=== PATIENT | male | born 1940 | race Caucasian/White ===

== ENCOUNTER 2022-04-23 09:33 | Observation (INO) ==
[2022-04-23] MEDS ORDERED: SODIUM CHLORIDE 0.9% 1000ML 1,000 ML IV SCH ×3 (09:45→19:24)
--- NOTE | 2022-04-23 10:16 | Emergency Department Note ---
History of Present Illness General Chief complaint: Rectal Bleed Time Seen by Provider: 04/23/22 09:45 History of Present Illness Provider Complaint: + diarrhea Onset (ago): hour(s) 1 Description of Diarrhea: + bloody (bright red) Associated Abdominal Pain: Yes Location of pain: + RLQ Severity: mild Quality: + aching Pain Consistency: + intermittent Relieved By: + none Exacerbated By: + bowel movement Context: no foreign travel, no possible food poisoning, no sick contacts, no alcohol abuse, no trauma, no anticoagulant use, no NSAID use, no smoking, no CO exposure or no marijuana use Associated symptoms: no myalgias, no chest pain, no cough, no diaphoresis, no fever/chills, no headaches, no loss of appetite, no malaise, no nausea/vomiting, no dysuria, no shortness of breath, no weakness, no fecal incontinence, no altered mental status or no change in vision Home Medications Medication Instructions Recorded Confirmed Type Lactobacillus acidophilus 1.5 mg 1,000 mmu cells PO QAM 12/06/21 04/13/22 History (250 million cell) capsule (Probiotic Acidophilus) amlodipine 2.5 mg tablet 2.5 mg PO QAM 12/06/21 04/13/22 History doxycycline monohydrate 100 mg 100 mg PO QAM 12/06/21 04/13/22 History tablet fluticasone propionate 50 2 spray intranasal QA PRN 12/06/21 04/13/22 History mcg/actuation nasal Congestion spray,suspension glucosamine 750 [id number] 1 tab PO QAM 12/06/21 04/13/22 History no1 644 mg-C 30 mg-kelly 1 mg tablet (Osteo Bi-Flex Triple Strength) pantoprazole 40 mg tablet,delayed 40 mg PO QAM 12/06/21 04/13/22 History release aspirin 325 mg capsule 325 mg PO BID 04/06/22 04/13/22 History Allergies Allergy/AdvReac Type Severity Reaction Status Date / Time No Known Allergies Allergy Unknown Verified 04/13/22 09:21 Past Med/Surg History Medical History Cardiac murmur GERD (gastroesophageal reflux disease) Hypertension Mitral valve regurgitation Follows Dr. Earl Surgical History History of appendectomy History of colonoscopy Hx of bilateral cataract extraction Hx of left inguinal hernia repair Family History Brother Colorectal cancer Sister Colorectal cancer Social History Smoking Status: Never smoker Second Hand Exposure: No; Hx Alcohol Use: No Hx Substance Use: No Preferred Language: [place] Communication Ability: Effective Embedded Systems Developer Required: No Beliefs That Will Affect Care: None Current Living Situation: Spouse Feels Safe at Home: Yes Assistive Devices: Denture - Upper, Denture - Lower and Glasses Review of Systems A total of 10 systems reviewed and were otherwise negative Physical Exam Vital Signs: Vital Signs - 24 hr 04/23/22 09:37 04/23/22 09:45 04/23/22 10:41 Temperature 36.6 C 36.6 C Temperature Source Oral Oral Pulse Rate 68 70 Pulse Rate [Right Finger] 67 Pulse Rhythm Regular Regular Pulse Rhythm [Righ t Finger] Regular Pulse Strength [Ri ght Finger] Normal Respiratory Rate 19 19 17 Respiratory Effort / Characteristics Non-Labored Sponta neous Non-Labored Sponta neous Respiratory Depth Normal Normal Respiratory Patter n Regular Regular Blood Pressure 181/94 H Blood Pressure [Ri ght Arm] 181/94 H Blood Pressure [place] n 123 Blood Pressure [place] n [Right Arm] 123 Blood Pressure Pos ition Lying Blood Pressure Pos ition [Right Arm] Lying Pulse Oximetry 98 95 97 Oxygen Delivery Me thod Room Air Room Air Room Air Sepsis Recent Feve r Within 48 Hours No Sepsis New/Unexpla ined Change in Men cassie Status No Sepsis Action Take n by Nursing No Action Required 04/23/22 11:47 Temperature Temperature Source Pulse Rate Pulse Rate [Right Finger] 85 Pulse Rhythm Pulse Rhythm [Righ t Finger] Pulse Strength [Ri ght Finger] Respiratory Rate 16 Respiratory Effort / Characteristics Respiratory Depth Respiratory Patter n Blood Pressure Blood Pressure [Ri ght Arm] 182/85 H Blood Pressure [place] n Blood Pressure [place] [Right Arm] 117 Blood Pressure Pos ition Blood Pressure Pos ition [Right Arm] Pulse Oximetry 98 Oxygen Delivery Me thod Room Air Sepsis Recent Feve r Within 48 Hours Sepsis New/Unexpla ined Change in Men cassie Status Sepsis Action Take n by Nursing Physical Exam: Physical Exam GENERAL: He is oriented to person, place, and time. He appears well-developed and well-nourished. He does not appear distressed. HENT: Exam performed. - Head: Normocephalic and atraumatic. - Right Ear: External ear normal. No mastoid tenderness. - Left Ear: External ear normal. No mastoid tenderness. - Mouth/Throat: The oropharynx is clear and moist. No trismus in the jaw. No dental abscesses or uvula swelling. No oropharyngeal exudate or tonsillar abscesses. EYES: Conjunctivae and EOM are normal. Pupils are equal, round, and reactive to light. Right eye exhibits no discharge. Left eye exhibits no discharge. No scleral icterus. NECK: Normal range of motion. Neck supple. No JVD present. No spinous process tenderness present. No carotid bruit present. No rigidity. No tracheal deviation and normal range of motion present. No Brudzinski's sign and no Kernig's sign noted. CV: Normal rate, regular rhythm, normal heart sounds and intact distal pulses. There is no peripheral edema. Palpable radial pulses bue. PULM/CHEST: Effort normal and breath sounds normal. No respiratory distress. No stridor. He has no wheezes. He has no rales. - Chest Wall: He exhibits no tenderness. ABD: The abdomen is soft. Bowel sounds are normal. He has no distension. No mass is present. There is tenderness to palpation of the right lower quadrant. There is no rebound, no guarding, no Arora's sign. Rovsig negative. Rectal: Bright red blood per rectum. MUSC/SKEL: Normal range of motion. There is no peripheral edema, tenderness or deformity. LYMPH: No cervical adenopathy. NEURO: He is alert and oriented to person, place, and time. He has normal strength. No cranial nerve deficit or sensory deficit. Coordination and gait normal. GCS eye subscore is 4. GCS verbal subscore is 5. GCS motor subscore is 6. Cerebellar tests wnl. SKIN: Skin is warm and dry. He is not diaphoretic. PSYCH: He has a normal mood and affect. Behavior is normal. Judgment and thought content normal. Course Course 0945: The patient was evaluated in room C4. A complete history and physical exam was performed Cardiac monitoring: An order was placed for continuous cardiac monitoring. The monitor shows a rate of 70 with sinus rhythm 1246: Vital signs stable. Labs within normal limits. CT does show possible GI bleed. Discussed with hospitalist team Chari paul who wanted GI consulted. Dr. Eastman made aware and states it is okay for the patient to be admitted to this facility. [facility] hospitalist team made aware. Administered Medications Sodium Chloride (Nss 1000ml) 1,000 mls @ 125 mls/hr IV .Q8H GISELA Stop: 05/23/22 09:44 Last Admin: 04/23/22 10:13 Dose: 125 mls/hr Documented By: JULY Discontinued Medications Ioversol (Optiray 320 100ml) 94 ml IV ONCE ONE Stop: 04/23/22 11:34 Last Admin: 04/23/22 11:34 Dose: 94 ml Documented By: LAYO Medical Decision Making Laboratory Data Result diagrams: 04/23/22 10:06 04/23/22 10:06 Lab Results 04/23/22 04/23/22 04/23/22 Range/Units 10:06 10:06 10:06 WBC 7.12 (4.8-10.8) K/ul RBC 4.27 L (4.63-6.08) M/uL Hgb 13.2 L (14.0-18.0) g/dl Hct 39.8 L (40.1-51.0) % MCV 93.2 (80.0-100.0) fL MCH 30.9 (25.0-34.0) pg MCHC 33.2 (32.0-36.0) g/dL RDW Std Deviation 48.7 H (36.4-46.3) fL RDW Coeff of Anamika 14.2 (11.5-14.5) % Plt Count 198 (130-400) K/uL MPV 11.2 (9.4-12.4) fL Immature Gran % (Auto) 0.3 % Neut % (Auto) 74.0 % Lymph % (Auto) 14.9 % Steele % (Auto) 8.3 % Eos % (Auto) 1.5 % Baso % (Auto) 1.0 % Neut # (Auto) 5.27 (1.4-6.5) K/uL Lymph # (Auto) 1.06 L (1.2-3.4) K/uL Steele # (Auto) 0.59 (0.24-0.82) K/uL Eos # (Auto) 0.11 (0-0.50) K/uL Baso # (Auto) 0.07 (0-0.2) K/uL Immature Gran # (Auto) 0.02 (0.00-0.02) K/uL PT 10.6 (9.0-12.0) Seconds INR 1.0 (0.9-1.1) APTT 27.3 (21.0-31.0) Seconds PTT Ratio 1.0 Sodium 139 (136-145) mmol/L Potassium 4.3 (3.5-5.1) mmol/L Chloride 104 (98-107) mmol/L Carbon Dioxide 25 (21-32) mmol/L Anion Gap 10 (3-11) BUN 17 (6-23) mg/dl Creatinine 1.16 (0.6-1.4) mg/dl Est Cr Clr Drug Dosing 47.8 ml/min Est GFR ( Amer) 68.6 ml/min Est GFR (Non-Af Amer) 59.1 ml/min BUN/Creatinine Ratio 14.7 (10-20) Glucose 102 H (70-99(Fasting)) mg/dl Calcium 9.4 (8.5-10.1) mg/dl Magnesium 2.0 (1.7-2.4) mg/dl Total Bilirubin 0.4 (0.2-1.0) mg/dl Direct Bilirubin 0.1 (0-0.2) mg/dl AST 23 (13-39) U/L ALT 18 (7-52) U/L Alkaline Phosphatase 79 (34-104) U/L Total Protein 7.9 (6.0-8.3) gm/dl Albumin 4.4 (3.4-5.0) gm/dl Lipase 46 (11-82) U/L Imaging Data Radiologist's Impression: Abdomen/Pelvis CT 04/23/22 10:02 CT OF THE ABDOMEN AND PELVIS WITH CONTRAST CLINICAL HISTORY: Right lower quadrant pain. Bloody diarrhea. COMPARISON STUDY: None. TECHNIQUE: Following IV administration of 94 mL of Optiray, axial images of the abdomen and pelvis were obtained from the lung bases to the proximal femurs. Images were reviewed in the axial, sagittal, and coronal planes. IV contrast was administered without complication. Automated exposure control was utilized for the study. A dose lowering technique was utilized adhering to the principles of ALARA. CT DOSE: 267.60 mGy.cm FINDINGS: Lung bases are unremarkable. No pneumatosis, free air or portal venous gas is present. Liver, spleen, adrenal glands, kidneys and pancreas are unremarkable. No biliary or pancreatic ductal dilatation. No hydronephrosis. Suspected excreted contrast within the collecting systems. Caliber and wall thickness of small and large bowel are normal. The appendix is not visualized. Note is made of linear hyperdense intraluminal material within the cecum shown best on axial image 299 of 436. Colonic diverticulosis is noted without evidence for acute diverticulitis. Left inguinal hernia repair is present. No acute fracture or suspicious lesion within visualized skeletal structures. Normal caliber abdominal aorta with extensive atherosclerotic plaque. No lymphadenopathy. No ascites. No fluid collection to suggest an abscess. IMPRESSION: 1. Linear hypodense intraluminal material within the cecum. Although possibly artifactual, this finding favors active GI bleed with intraluminal contrast extravasation. GI consultation is recommended. 2. Colonic diverticulosis. No evidence for acute diverticulitis. No bowel obstruction. ACT 112: Negative or not required by law. Electronically signed by: Santiago Cottrell M.D. 04/23/2022 11:49 AM ECG Data Indication: abdominal pain Rate (beats per minute): 77 Rhythm: normal sinus Findings: + PVC; no ST depression, no ST elevation or no prolonged QT MDM Narrative 0945: The patient was evaluated in room C4. A complete history and physical exam was performed Cardiac monitoring: An order was placed for continuous cardiac monitoring. The monitor shows a rate of 70 with sinus rhythm 1246: Vital signs stable. Labs within normal limits. CT does show possible GI bleed. Discussed with hospitalist team Chari paul who wanted GI consulted. Dr. Eastman made aware and states it is okay for the patient to be admitted to this facility. [facility] hospitalist team made aware. Impression & Plan Lower gastrointestinal hemorrhage Discharge Plan Visit Data Chief Complaint: Rectal Bleed ED Provider: James Yousif Discharge Problem: Lower gastrointestinal hemorrhage Patient Disposition: Being Evaluated by Hospitalist Forms Stand Alone Forms: [facility] [employer] [place] Prescriptions Prescriptions: No Action aspirin 325 mg Capsule 325 mg PO BID Osteo Bi-Flex Triple Strength 750 mg-644 mg- 30 mg-1 mg Tablet 1 tab PO QAM amlodipine 2.5 mg Tablet 2.5 mg PO QAM doxycycline monohydrate 100 mg Tablet 100 mg PO QAM pantoprazole 40 mg Tablet,Delayed Release (Dr/Ec) 40 mg PO QAM fluticasone propionate 50 mcg/actuation [place],Suspension 2 spray INTRANASAL QAM PRN (Reason: Congestion) Probiotic Acidophilus 1.5 mg (250 million cell) Capsule 1,000 mmu cells PO QAM Referrals Referrals: Ninfa Arriaga, [Primary Care Provider] -
[2022-04-23 10:23] LABS: Basophils # (auto) 0.07 K/uL (0-0.2); Eosinophils # (auto) 0.11 K/uL (0-0.50); Eosinophils % (auto) 1.5 %; Hematocrit (blood only) 39.8 % (40.1-51.0); Hemoglobin 13.2 g/dl (14.0-18.0); Immature Granulocytes # (auto) 0.02 K/uL (0.00-0.02); Immature Granulocytes % (auto) 0.3 %; Lymphocytes # (auto) 1.06 K/uL (1.2-3.4); Lymphocytes % (auto) 14.9 %; Mean Corpuscular Hemoglobin 30.9 pg (25.0-34.0); Mean Corpuscular Hgb Conc 33.2 g/dL (32.0-36.0); Mean Corpuscular Volume 93.2 fL (80.0-100.0); Mean Platelet Volume 11.2 fL (9.4-12.4); Monocytes # (auto) 0.59 K/uL (0.24-0.82); Monocytes % (auto) 8.3 %; Neutrophils # (auto) 5.27 K/uL (1.4-6.5); Platelet Count 198 K/uL (130-400); RDW Coefficient of Variation 14.2 % (11.5-14.5); RDW Standard Deviation 48.7 fL (36.4-46.3); Red Blood Count 4.27 M/uL (4.63-6.08); White Blood Count 7.12 K/ul (4.8-10.8)
[2022-04-23 10:36] LABS: Partial Thromboplastin Time 27.3 Seconds (21.0-31.0); Prothrombin Time 10.6 Seconds (9.0-12.0)
[2022-04-23 11:00] LABS: Albumin Level 4.4 gm/dl (3.4-5.0); BUN Creatinine Ratio 14.7 (10-20); Bilirubin Direct 0.1 mg/dl (0-0.2); Bilirubin,Total 0.4 mg/dl (0.2-1.0); Calcium 9.4 mg/dl (8.5-10.1); Creatinine Clr Calc Pharmacy 47.8 ml/min; Est GFR (African American) 68.6 ml/min; Est GFR (Non-African American) 59.1 ml/min; Potassium 4.3 mmol/L (3.5-5.1); Total Protein 7.9 gm/dl (6.0-8.3)
[2022-04-23] MEDS ORDERED: OPTIRAY 320 100ml IV ONE (11:33)
--- NOTE | 2022-04-23 11:51 | CT Scan Report ---
CT OF THE ABDOMEN AND PELVIS WITH CONTRAST CLINICAL HISTORY: Right lower quadrant pain. Bloody diarrhea. COMPARISON STUDY: None. TECHNIQUE: Following IV administration of 94 mL of Optiray, axial images of the abdomen and pelvis we re obtained from the lung bases to the proximal femurs. Images were reviewed in the axial, sagittal, and coronal planes. IV contrast was administered without complication. Automated exposure control wa s utilized for the study. A dose lowering technique was utilized adhering to the principles of ALARA . CT DOSE: 267.60 mGy.cm FINDINGS: Lung bases are unremarkable. No pneumatosis, free air or portal venous gas is present. Live r, spleen, adrenal glands, kidneys and pancreas are unremarkable. No biliary or pancreatic ductal dil atation. No hydronephrosis. Suspected excreted contrast within the collecting systems. Caliber and wa ll thickness of small and large bowel are normal. The appendix is not visualized. Note is made of annette ear hyperdense intraluminal material within the cecum shown best on axial image 299 of 436. Colonic d iverticulosis is noted without evidence for acute diverticulitis. Left inguinal hernia repair is pres ent. No acute fracture or suspicious lesion within visualized skeletal structures. Normal caliber abd ominal aorta with extensive atherosclerotic plaque. No lymphadenopathy. No ascites. No fluid collecti on to suggest an abscess. IMPRESSION: 1. Linear hypodense intraluminal material within the cecum. Although possibly artifactual, this findi ng favors active GI bleed with intraluminal contrast extravasation. GI consultation is recommended. 2. Colonic diverticulosis. No evidence for acute diverticulitis. No bowel obstruction. ACT 112: Negative or not required by law. Electronically signed by: Santiago Cottrell M.D. 04/23/2022 11:49 AM
--- NOTE | 2022-04-23 13:23 | Gastrointestinal Consultation ---
Date of Consultation April 23, 2022 Assessment & Plan (1) Lower gastrointestinal hemorrhage: (2) AVM (arteriovenous malformation) of colon: Plan active GI bleeding in setting of colonic AVMs and high dose aspirin use recs: --clear liquid diet today, golytely 4L prep tonight at 6 pm --colonoscopy tomorrow morning with [facility] to further evaluate and treat --would advise using no more than aspirin 325 mg daily going forward in the future supportive care, IVFs Thank you for allowing me to participate in the care of this patient. History of Present Illness History of Present Illness 82 yo male here with hx colonic AVMs here with diarrhea and hematochezia. Hgb noted to be 13.2 on admission, he recently underwent colonoscopy with Dr. Park who found diverticulosis and treated multiple right sided colonic AVMs with APC. CT A/P today shows intraluminal extravasation consistent with gi bleeding in the cecum. This hematochezia with clots started early this morning, and the diarrhea last night. He did not have these issues after his colonoscopy. He was having RLQ abd pains/pressure that has been ongoing and chronic however. He notes he takes Aspirin 325 mg BID and has been doing this for 2 months now. CBC and CMP reviewed. Allergies Allergy/AdvReac Type Severity Reaction Status Date / Time No Known Allergies Allergy Unknown Verified 04/13/22 09:21 Home Medications Medication Instructions Recorded Confirmed Type Lactobacillus acidophilus 1.5 mg 1,000 mmu cells PO QAM 12/06/21 04/13/22 History (250 million cell) capsule (Probiotic Acidophilus) amlodipine 2.5 mg tablet 2.5 mg PO QAM 12/06/21 04/13/22 History doxycycline monohydrate 100 mg 100 mg PO QAM 12/06/21 04/13/22 History tablet fluticasone propionate 50 2 spray intranasal QAM PRN 12/06/21 04/13/22 History mcg/actuation nasal Congestion spray,suspension glucosamine 750 [id number] 1 tab PO QAM 12/06/21 04/13/22 History no1 644 mg-C 30 mg-kelly 1 mg tablet (Osteo Bi-Flex Triple Strength) pantoprazole 40 mg tablet,delayed 40 mg PO QAM 12/06/21 04/13/22 History release aspirin 325 mg capsule 325 mg PO BID 04/06/22 04/13/22 History Patient History Medical History Cardiac murmur GERD (gastroesophageal reflux disease) Hypertension Mitral valve regurgitation Follows Dr. Earl Surgical History History of appendectomy History of colonoscopy Hx of bilateral cataract extraction Hx of left inguinal hernia repair Family History Brother Colorectal cancer Sister Colorectal cancer Social History Smoking Status: Never smoker Second Hand Exposure: No; Hx Alcohol Use: No Hx Substance Use: No Preferred Language: [place] Communication Ability: Effective Culture Manager Required: No Beliefs That Will Affect Care: None Current Living Situation: Spouse Feels Safe at Home: Yes Assistive Devices: Denture - Upper, Denture - Lower and Glasses Review of Systems Constitutional: no fever, no chills and no weight loss Eyes: as per Subjective / HPI Ear, Nose, Mouth, Throat: as per Subjective / HPI Respiratory: no dyspnea and no dyspnea on exertion Cardiovascular: no chest pain and no palpitations Gastrointestinal: as per Subjective / HPI Musculoskeletal: no joint pain and no swelling Integumentary: no rash and no lesions Neurologic: no numbness and no paresthesia Psychiatric: no depression and no anxiety Endocrine: no fatigue Hematologic / Lymphatic: no easy bleeding and no easy bruising Physical Exam Constitutional: WD/WN, vitals as above Eyes: EOM intact bilaterally Neck: normal visual inspection Respiratory: normal respiratory effort, lungs clear to auscultation Cardiovascular: RRR, no murmur, no edema Gastrointestinal (Abdomen): Inspection/Auscultation: abdomen normal to inspection; abdomen not distended Percussion/Palpation: + abdomen tender (mild RLQ) and abdomen soft; no hepatosplenomegaly Musculoskeletal: Extremities: no cyanosis Gait: normal gait Skin: no rashes, warm and dry Neurologic: moves all extremities Psychiatric: A+Ox3, euthymic affect Results & Data ([facility]) Vital Signs (Past 12 Hours) Vital Signs Temp Pulse Pulse Resp BP BP Pulse Ox 04/23/22 11:47 85 16 182/85 H 98 04/23/22 10:41 70 17 97 04/23/22 09:45 36.6 C 67 19 181/94 H 95 04/23/22 09:37 36.6 C 68 19 181/94 H 98 O2 Del Method 04/23/22 11:47 Room Air 04/23/22 10:41 Room Air 04/23/22 09:45 Room Air 04/23/22 09:37 Room Air PG Care Time/CCT Total # of Minutes Spent Total Time Spent with Patient: Total time spent is greater than 50% in coordination of care (as documented) at patient's floor/unit and/or counseling patient: Coding Level of Care Code 81705 Initial Inpt Care Lvl 3 Diagnoses Lower gastrointestinal hemorrhage K92.2 AVM (arteriovenous malformation) of colon K55.20
[2022-04-23 14:33] LABS: Adenovirus F 40/41 PCR Not Detected (NotDetected); Astrovirus PCR Not Detected (NotDetected); Campylobacter PCR Not Detected (NotDetected); Clostridium diff Toxin A/B PCR Not Detected (NotDetected); Cryptosporidium PCR Not Detected (NotDetected); Cyclospora cayetanensis PCR Not Detected (NotDetected); Entamoeba histolytica PCR Not Detected (NotDetected); Enteroaggregative E.coli(EAEC) Not Detected (NotDetected); Enteropathogenic E.coli (EPEC) Not Detected (NotDetected); Enterotoxigenic E.coli (ETEC) Not Detected (NotDetected); Giardia lamblia PCR Not Detected (NotDetected); Norovirus GI/GII PCR Not Detected (NotDetected); Plesiomonas shigelloides PCR Not Detected (NotDetected); Rotavirus A PCR Not Detected (NotDetected); Salmonella PCR Not Detected (NotDetected); Sapovirus PCR Not Detected (NotDetected); Shiga-like Toxin E.coli (STEC) Not Detected (NotDetected); Shigella/Enteroinvasive E.coli Not Detected (NotDetected); Vibrio cholerae PCR Not Detected (NotDetected); Vibrio species PCR Not Detected (NotDetected); Yersinia enterocolitica PCR Not Detected (NotDetected)
[2022-04-23] MEDS ORDERED: ACETAMINOPHEN 325 MG TAB PO PRN (15:22)
--- NOTE | 2022-04-23 15:46 | History & Physical Report ---
Date of Service April 23, 2022 Assessment & Plan (1) Lower gastrointestinal hemorrhage: (2) AVM (arteriovenous malformation) of colon: Plan: Admit to [facility] with telemetry Patient presenting from home with reports of bright red bleeding per rectum S/p recent colonoscopy on 04/13/2022 -- - Three recently bleeding colonic angioectasias. Treated with argon plasma coagulation (APC). Mild diverticulosis in the sigmoid colon and in descending colon. Internal hemorrhoids. Currently hemodynamically stable, Hgb stable at 13.2 GI consulted --planning on colonoscopy tomorrow Serial H&H, transfuse as needed Clear liquids, n.p.o. after midnight (3) Hypertension: Plan: BP controlled, continue amlodipine Noted history of abnormal stress test 12/2021 --patient was offered cardiac cath for additional work-up however patient has declined (4) HLD (hyperlipidemia): Plan: Statin intolerant (5) DVT prophylaxis: Plan: SCDs due to GI bleeding Admission and Anticipated Discharge Date Admission Date: April 23, 2022 History of Present Illness Chief Complaint: Bright red bleeding per rectum Primary Care Provider: Ninfa Arriaga DO 82-year-old male with PMH HLD, moderate to severe mitral regurgitation, HTN, GERD, Mnire's disease, rosacea, and other problems listed below who presents the ED for evaluation of bright red bleeding per rectum. Patient underwent colonoscopy on 04/13/2022 after outpatient fecal occult blood was positive. C olonoscopy showed 3 bleeding colonic angioectasias that were treated with APC. There was also mild diverticulosis and internal hemorrhoids noted. Patient reports 1 episode of diarrhea yesterday. This morning, he had another episode of diarrhea with bright red blood. Patient reports about 6 episodes of bright red bleeding per rectum this morning. Has right lower quadrant abdominal discomfort that is a chronic issue for him. Denies nausea or vomiting. Had an episode of lightheadedness earlier in the week that he attributes to his Mnire's disease. Denies chest pain shortness of breath. No syncopal events. Denies fevers and chills. No urinary symptoms. In the ED, patient is hemodynamically stable and labs show Hgb 13.2. Patient was given IVF. Allergies Allergy/AdvReac Type Severity Reaction Status Date / Time No Known Allergies Allergy Unknown Verified 04/13/22 09:21 Home Medications Medication Instructions Recorded Confirmed Type Lactobacillus acidophilus 1.5 mg 1,000 mmu cells PO QAM 12/06/21 04/23/22 History (250 million cell) capsule (Probiotic Acidophilus) amlodipine 2.5 mg tablet 2.5 mg PO QAM 12/06/21 04/23/22 History doxycycline monohydrate 100 mg 100 mg PO QAM 12/06/21 04/23/22 History tablet glucosamine 750 vi-ugsaywczxid-hkg 1 tab PO QAM 12/06/21 04/23/22 History no1 644 mg-C 30 mg-kelly 1 mg tablet (Osteo Bi-Flex Triple Strength) aspirin 325 mg capsule 325 mg PO BID 04/06/22 04/23/22 History ferrous sulfate 325 mg (65 mg 325 mg PO DAILY 04/23/22 04/23/22 History iron) tablet linaclotide 72 mcg capsule 72 mcg PO DAILY 04/23/22 04/23/22 History (Linzess) Past Med/Surg History Medical History Abnormal stress test Patient declined cardiac cath Cardiac murmur GERD (gastroesophageal reflux disease) HLD (hyperlipidemia) Hypertension Mitral valve regurgitation Follows Dr. Earl Surgical History History of appendectomy History of colonoscopy Hx of bilateral cataract extraction Hx of left inguinal hernia repair Family History Brother Colorectal cancer Sister Colorectal cancer Social History Smoking Status: Former smoker Second Hand Exposure: No; Hx Alcohol Use: No Hx Substance Use: No Preferred Language: Sinhala Communication Ability: Effective Jewelry Facer Required: No Beliefs That Will Affect Care: None Current Living Situation: Spouse Feels Safe at Home: Yes Assistive Devices: Denture - Upper, Denture - Lower and Glasses Review of Systems Review of Systems: ROS per HPI, all other systems reviewed and negative Physical Exam Constitutional: WD/WN, vitals as above Eyes: PERRL, conjunctivae normal, anicteric sclerae ENMT: external ear and nose normal, oropharynx normal Respiratory: normal respiratory effort, lungs clear to auscultation Cardiovascular: Rate/Rhythm: regular rate and regular rhythm Heart Sounds: + murmur (Grade 4/6, systolic, best heard over fifth ICS) Vessels: normal peripheral pulses Extremities: no edema Gastrointestinal (Abdomen): normal bowel sounds, soft, nontender, no hepatosplenomegaly Musculoskeletal: no cyanosis or clubbing, extremities motor strength 5/5 Skin: no rashes, warm and dry Neurologic: PERRL, EOMI, accommodation nl, no face palsy, no dysarthria Psychiatric: A+Ox3, euthymic affect Results & Data Results & Data ([facility]) Vital Signs (Past 12 Hours) Vital Signs Temp Pulse Pulse Resp BP BP Pulse Ox 04/23/22 14:52 71 18 139/58 L 100 04/23/22 13:25 85 18 137/74 97 04/23/22 11:47 85 16 182/85 H 98 04/23/22 10:41 70 17 97 04/23/22 09:45 36.6 C 67 19 181/94 H 95 04/23/22 09:37 36.6 C 68 19 181/94 H 98 O2 Del Method 04/23/22 14:52 Room Air 04/23/22 13:25 Room Air 04/23/22 11:47 Room Air 04/23/22 10:41 Room Air 04/23/22 09:45 Room Air 04/23/22 09:37 Room Air Laboratory Results Short CBC 04/23/22 Range/Units 10:06 WBC 7.12 (4.8-10.8) K/ul Hgb 13.2 L (14.0-18.0) g/dl Hct 39.8 L (40.1-51.0) % Plt Count 198 (130-400) K/uL BMP 04/23/22 10:06 Sodium 139 Potassium 4.3 Chloride 104 Carbon Dioxide 25 BUN 17 Creatinine 1.16 Glucose 102 H Calcium 9.4 Liver Function 04/23/22 Range/Units 10:06 Total Bilirubin 0.4 (0.2-1.0) mg/dl Direct Bilirubin 0.1 (0-0.2) mg/dl AST 23 (13-39) U/L ALT 18 (7-52) U/L Alkaline Phosphatase 79 (34-104) U/L Albumin 4.4 (3.4-5.0) gm/dl Diagnostic Findings Abdomen/Pelvis CT 04/23/22 10:02 CT OF THE ABDOMEN AND PELVIS WITH CONTRAST CLINICAL HISTORY: Right lower quadrant pain. Bloody diarrhea. COMPARISON STUDY: None. TECHNIQUE: Following IV administration of 94 mL of Optiray, axial images of the abdomen and pelvis were obtained from the lung bases to the proximal femurs. Images were reviewed in the axial, sagittal, and coronal planes. IV contrast was administered without complication. Automated exposure control was utilized for the study. A dose lowering technique was utilized adhering to the principles of ALARA. CT DOSE: 267.60 mGy.cm FINDINGS: Lung bases are unremarkable. No pneumatosis, free air or portal venous gas is present. Liver, spleen, adrenal glands, kidneys and pancreas are unremarkable. No biliary or pancreatic ductal dilatation. No hydronephrosis. Suspected excreted contrast within the collecting systems. Caliber and wall thickness of small and large bowel are normal. The appendix is not visualized. Note is made of linear hyperdense intraluminal material within the cecum shown best on axial image 299 of 436. Colonic diverticulosis is noted without evidence for acute diverticulitis. Left inguinal hernia repair is present. No acute fracture or suspicious lesion within visualized skeletal structures. Normal caliber abdominal aorta with extensive atherosclerotic plaque. No lymphadenopathy. No ascites. No fluid collection to suggest an abscess. IMPRESSION: 1. Linear hypodense intraluminal material within the cecum. Although possibly artifactual, this finding favors active GI bleed with intraluminal contrast extravasation. GI consultation is recommended. 2. Colonic diverticulosis. No evidence for acute diverticulitis. No bowel obstruction. ACT 112: Negative or not required by law. Electronically signed by: Santiago Cottrell M.D. 04/23/2022 11:49 AM Code Status & VTE Plan Code Status Patient is a DNR as per my discussion with him. VTE Prophylaxis Plan VTE Prophylaxis will be ordered: Yes Supervising Physician Co-Signing Physician Notes Patient was seen and examined independently at bedside. Chart reviewed. Case discussed with Chari WILLAMS and agree with the documentation above. In summary, this is a 82 year old male who presented to the ED with diarrhea and hematochezia. He had recent colonoscopy 04/13 and had APCs done for multiple right sided clolonic AVMs. He currently feels fine during my encounter. Vitals stable. Labs including Hb stable, stool studies negative. AAO, chest clear, heart sounds normal, abd benign, no LE edema, non focal exam. Seen by GI. Plan for colonoscopy tomorrow per GI. Clear liquid diet today and bowel prep tonight. Trend H&H. Rest as per the note above. Family at bedside.
[2022-04-23] MEDS ORDERED: LAVAGE SOLUTION 4000ML PO SCH (18:00)
[2022-04-23 18:01] LABS: Hematocrit (blood only) 31.8 % (40.1-51.0); Hemoglobin 10.6 g/dl (14.0-18.0)
--- NOTE | 2022-04-23 19:23 | Communication Note ---
Date of Service: April 23, 2022 82-year-old gentleman who was being managed for lower gastrointestinal hemorrhage under colonic prep went to the bathroom for bowel movement late evening. After bowel movement, while washing his hand he fell but does not remember the circumstances of falling but denies hitting his head. Patient denies any pain/headache/any other musculoskeletal pain in shoulders/cervical spine or hips. No bruise or swelling noted. Negative C-spine tenderness/shoulder and hip compression tenderness. No back tenderness. Per RN, patient was found lying on his back, he was cold and clammy with blood pressure of 70/47 and heart rate of 124 and saturating at 94%. He received IV fluid immediately with improvement of his blood pressure to SBP in 100s and improvement in his weakness back to his presentation level. Patient does report feeling weak since prior to presentation. On examination: No bruise or soft tissue swelling noted, C-spine/shoulder/hip compression negative for tenderness. Tachycardic. Alert and oriented. Denies headache. Patient on aspirin at home. Patient advised to report to RN if any headache or other musculoskeletal pain. Will get stat BMP, magnesium, CBC level. Signed out to liner worker for follow- up. No obvious reason for scan at this point, observe closely for need for scan if patient complains any new pain, RN made aware. Will change IV fluid with D5 NSS. Hold all blood pressure medication.
[2022-04-23 19:53] LABS: Hematocrit (blood only) 30.2 % (40.1-51.0); Hemoglobin 10.1 g/dl (14.0-18.0); Mean Corpuscular Hemoglobin 31.6 pg (25.0-34.0); Mean Corpuscular Hgb Conc 33.4 g/dL (32.0-36.0); Mean Corpuscular Volume 94.4 fL (80.0-100.0); Platelet Count 158 K/uL (130-400); RDW Coefficient of Variation 14.2 % (11.5-14.5); RDW Standard Deviation 48.8 fL (36.4-46.3)
[2022-04-23 20:15] LABS: BUN Creatinine Ratio 14.8 (10-20); Calcium 7.8 mg/dl (8.5-10.1); Creatinine Clr Calc Pharmacy 51.4 ml/min; Est GFR (African American) 74.7 ml/min; Est GFR (Non-African American) 64.5 ml/min; Magnesium 1.8 mg/dl (1.7-2.4); Potassium 3.9 mmol/L (3.5-5.1)
[2022-04-23] MEDS: D5W AND NSS 1,000 ML IV SCH (20:52)
[2022-04-23] MEDS ORDERED: MAGNESIUM SULFATE / D5W 1 GM/100 ML BAG IV ONE (21:15)
[2022-04-24 00:47] LABS: Hematocrit (blood only) 29.6 % (40.1-51.0)
[2022-04-24] MEDS: D5W AND NSS 1,000 ML IV SCH (05:11)
--- NOTE | 2022-04-24 05:43 | Electrocardiogram Report ---
Test Reason : Blood Pressure : / mmHG Vent. Rate : 077 BPM Atrial Rate : 077 BPM P-R Int : 184 ms QRS Dur : 090 ms QT Int : 376 ms P-R-T Axes : 083 000 046 degrees QTc Int : 425 ms Sinus rhythm with sinus arrhythmia with frequent Premature ventricular complexes Premature atrial complexes Nonspecific ST abnormality No previous ECGs available Confirmed by Simba Plummer ([id number]) on 04/24/2022 5:43:30 AM Referred By: REFERRED SELF Confirmed By:Simba Plummer
[2022-04-24 07:10] LABS: Hematocrit (blood only) 28.1 % (40.1-51.0); Hemoglobin 9.5 g/dl (14.0-18.0); Mean Corpuscular Hemoglobin 31.1 pg (25.0-34.0); Mean Corpuscular Hgb Conc 33.8 g/dL (32.0-36.0); Mean Corpuscular Volume 92.1 fL (80.0-100.0); Mean Platelet Volume 11.4 fL (9.4-12.4); Platelet Count 152 K/uL (130-400); RDW Coefficient of Variation 14.3 % (11.5-14.5); RDW Standard Deviation 48.7 fL (36.4-46.3); Red Blood Count 3.05 M/uL (4.63-6.08); White Blood Count 6.06 K/ul (4.8-10.8)
[2022-04-24 07:34] LABS: BUN Creatinine Ratio 12.1 (10-20); Creatinine Clr Calc Pharmacy 61.1 ml/min; Est GFR (African American) 91.9 ml/min; Est GFR (Non-African American) 79.3 ml/min; Potassium 3.9 mmol/L (3.5-5.1)
--- NOTE | 2022-04-24 08:43 | Anesthesiology Consultation ---
Date of Service April 24, 2022 Assessment & Plan Chart Review Chart Review: Acceptable Risk for Surgery Consults Requested none ASA ASA3 Proposed Anesthesia Risk / Benefits Reviewed With: PT / POA / Parent / Guardian, Accepts Plan and Informed Consent Obtained History Surgery Operation Date: 04/24/22 16:30 Proposed Procedures p Colonoscopy Dr Wiley - Jessica Wiley, DO Height/Weight Height: 5 ft 9 in Weight: 66.678 kg Allergies Allergy/AdvReac Type Severity Reaction Status Date / Time No Known Allergies Allergy Unknown Verified 04/13/22 09:21 Medications Home Medications Medication Instructions Recorded Confirmed Last Taken Lactobacillus acidophilus 1.5 mg 1,000 mmu cells PO QAM 12/06/21 04/23/22 04/12/22 (250 million cell) capsule (Probiotic Acidophilus) amlodipine 2.5 mg tablet 2.5 mg PO QAM 12/06/21 04/23/22 04/12/22 doxycycline monohydrate 100 mg 100 mg PO QAM 12/06/21 04/23/22 04/12/22 tablet glucosamine 750 mp-atnewxltedh-ycq 1 tab PO QAM 12/06/21 04/23/22 04/12/22 no1 644 mg-C 30 mg-kelly 1 mg tablet (Osteo Bi-Flex Triple Strength) aspirin 325 mg capsule 325 mg PO BID 04/06/22 04/23/22 04/12/22 ferrous sulfate 325 mg (65 mg 325 mg PO DAILY 04/23/22 04/23/22 Unknown iron) tablet linaclotide 72 mcg capsule 72 mcg PO DAILY 04/23/22 04/23/22 Unknown (Linzess) Active Medications Generic Name Dose Route Start Last Admin Trade Name Freq PRN Reason Stop Dose Admin Dextrose/Sodium Chloride 1,000 mls @ 100 mls/hr 04/23/22 19:30 04/24/22 07:55 D5w And Nss IV 04/24/22 15:07 0 mls/hr .Q10H GISELA Infusion NPO Date Last Intake of Fluids: 04/23/22 Time Last Intake of Fluids: 23:30 Date Last Intake of Solids: 04/22/22 Time Last Intake of Solids: 16:00 Past Medical History Medical History Abnormal stress test Patient declined cardiac cath Cardiac murmur GERD (gastroesophageal reflux disease) HLD (hyperlipidemia) Hypertension Mitral valve regurgitation Follows Dr. Eral Exercise / Class Metabolic Activity III < 4 Walking/Shop/Light housework Past Family History Family History Brother Colorectal cancer Sister Colorectal cancer Past Surgical History Surgical History History of appendectomy History of colonoscopy Hx of bilateral cataract extraction Hx of left inguinal hernia repair Past Anesthesia History No Hx of Anesthesia Complications History of PONV No Hx of PONV and Hx of Motion Sickness Social History Smoking Status: Former smoker tobacco type: cigarettes Hx Alcohol Use: No alcohol intake frequency: holidays/special occasions only Hx Substance Use: No substance use type: does not use Review of Systems ROS Unobtainable: All systems reviewed & are unremarkable except as noted in HPI & below Constitutional: as per Subjective / HPI Ear, Nose, Mouth, Throat: as per Subjective / HPI Cardiovascular: as per Subjective / HPI Gastrointestinal: as per Subjective / HPI and + blood in stools fainted likely due to prep and acute blood loss ( yesterday) BP stable now Genitourinary (Male): + as per Subjective / HPI Musculoskeletal: as per Subjective / HPI Neurologic: as per Subjective / HPI Psychiatric: as per Subjective / HPI Endocrine: as per Subjective / HPI Hematologic / Lymphatic: as per Subjective / HPI Physical Exam Vital Signs Last Vital Signs Temp 36.6 C 04/24/22 08:18 Pulse 72 04/24/22 08:18 Resp 16 04/24/22 08:18 BP 167/71 H 04/24/22 08:18 Pulse Ox 98 04/24/22 08:18 O2 Del Method 04/24/22 08:18 ENMT Mouth: no TMJ abnormality and no dentition abnormality Thyromental Distance: > or= 3.5 Finger Breadths Mallampati Class: II Neck normal visual inspection mssing teeth Respiratory normal respiratory effort Auscultation: lungs clear to auscultation bilaterally Cardiovascular Rate/Rhythm: regular rate and regular rhythm Heart Sounds: no murmur Musculoskeletal Extremities: extremities normal to inspection Neurologic moves all extremities Psychiatric Orientation: alert and oriented x 3 Testing Laboratory Results 04/24/22 06:34 04/24/22 06:34 PT 10.6 Seconds (9.0-12.0) 04/23/22 10:06 INR 1.0 (0.9-1.1) 04/23/22 10:06 APTT 27.3 Seconds (21.0-31.0) 04/23/22 10:06 Blood Type A Positive 04/23/22 19:45 Antibody Screen NEGATIVE 04/23/22 19:45
--- NOTE | 2022-04-24 08:43 | History & Physical Report ---
Date of Service April 24, 2022 Assessment & Plan (1) Lower gastrointestinal hemorrhage: Plan: colonoscopy today Admission and Anticipated Discharge Date Admission Date: April 23, 2022 History of Present Illness Chief Complaint: lower Gi bleeding Primary Care Provider: Ninfa Arriaga DO lower Gi bleeding Allergies Allergy/AdvReac Type Severity Reaction Status Date / Time No Known Allergies Allergy Unknown Verified 04/13/22 09:21 Home Medications Medication Instructions Recorded Confirmed Type Lactobacillus acidophilus 1.5 mg 1,000 mmu cells PO QAM 12/06/21 04/23/22 History (250 million cell) capsule (Probiotic Acidophilus) amlodipine 2.5 mg tablet 2.5 mg PO QAM 12/06/21 04/23/22 History doxycycline monohydrate 100 mg 100 mg PO QAM 12/06/21 04/23/22 History tablet glucosamine 750 pg-lhgcqwiebhe-vbt 1 tab PO QAM 12/06/21 04/23/22 History no1 644 mg-C 30 mg-kelly 1 mg tablet (Osteo Bi-Flex Triple Strength) aspirin 325 mg capsule 325 mg PO BID 04/06/22 04/23/22 History ferrous sulfate 325 mg (65 mg 325 mg PO DAILY 04/23/22 04/23/22 History iron) tablet linaclotide 72 mcg capsule 72 mcg PO DAILY 04/23/22 04/23/22 History (Linzess) Past Med/Surg History Medical History Abnormal stress test Patient declined cardiac cath Cardiac murmur GERD (gastroesophageal reflux disease) HLD (hyperlipidemia) Hypertension Mitral valve regurgitation Follows Dr. Earl Surgical History History of appendectomy History of colonoscopy Hx of bilateral cataract extraction Hx of left inguinal hernia repair Family History Brother Colorectal cancer Sister Colorectal cancer Social History Smoking Status: Former smoker Second Hand Exposure: No; Hx Alcohol Use: No Hx Substance Use: No Preferred Language: Macedonian Communication Ability: Effective Civilian Jail Officer Required: No Beliefs That Will Affect Care: None Current Living Situation: Spouse Feels Safe at Home: Yes Assistive Devices: Denture - Upper, Denture - Lower and Glasses Results & Data ([facility]) Vital Signs (Past 12 Hours) Vital Signs Temp Pulse Pulse Pulse Resp BP Pulse Ox 04/24/22 08:18 36.6 C 72 16 167/71 H 98 04/24/22 07:32 69 04/24/22 07:35 36.8 C 68 16 137/67 97 04/24/22 03:11 36.7 C 80 18 132/71 98 04/23/22 22:57 84 04/23/22 22:58 36.8 C 87 18 166/70 H 96 O2 Del Method 04/24/22 08:18 Room Air 04/24/22 07:32 04/24/22 07:35 Room Air 04/24/22 03:11 Room Air 04/23/22 22:57 04/23/22 22:58 Room Air Code Status & VTE Plan VTE Prophylaxis Plan VTE Prophylaxis will be ordered: Yes
--- NOTE | 2022-04-24 08:43 | Anesthesiology Progress Note ---
Date of Service April 24, 2022 Anesthesia Post Procedure Vital Signs Vital Signs: Temp Pulse Pulse Pulse Resp BP BP 04/24/22 08:18 36.6 C 72 16 167/71 H 04/24/22 07:32 69 04/24/22 07:35 36.8 C 68 16 137/67 04/24/22 03:11 36.7 C 80 18 132/71 04/23/22 22:57 84 04/23/22 22:58 36.8 C 87 18 166/70 H 04/23/22 19:20 63 04/23/22 18:51 124 H 04/23/22 18:55 120 H 04/23/22 18:50 127 H 04/23/22 15:34 36.9 C 79 20 04/23/22 16:08 75 04/23/22 14:52 71 18 139/58 L 04/23/22 13:25 85 18 04/23/22 11:47 85 16 04/23/22 10:41 70 17 04/23/22 09:45 36.6 C 67 19 04/23/22 09:37 36.6 C 68 19 181/94 H BP Pulse Ox O2 Del Method 04/24/22 08:18 98 Room Air 04/24/22 07:32 04/24/22 07:35 97 Room Air 04/24/22 03:11 98 Room Air 04/23/22 22:57 04/23/22 22:58 96 Room Air 04/23/22 19:20 156/58 H 98 Room Air 04/23/22 18:51 90/58 L 04/23/22 18:55 104/67 04/23/22 18:50 70/47 L 04/23/22 15:34 155/82 H 98 Room Air 04/23/22 16:08 04/23/22 14:52 100 Room Air 04/23/22 13:25 137/74 97 Room Air 04/23/22 11:47 182/85 H 98 Room Air 04/23/22 10:41 97 Room Air 04/23/22 09:45 181/94 H 95 Room Air 04/23/22 09:37 98 Room Air Transfer of Care Handoff Completed per policy Notes Mental Status: alert / awake / arousable and participated in evaluation Nausea / Vomiting: adequately controlled Pain: adequately controlled Airway Patency, RR, SpO2: stable & adequate BP & HR: stable & adequate Hydration State: stable & adequate Anesthetic Complications: no major complications apparent and Pt Satisfied with anesthetic care
[2022-04-24] MEDS ORDERED: amLODIPine BESYLATE 5 MG TAB PO SCH (09:00)
[2022-04-24] MEDS ORDERED: PROPOFOL IV EMULSION 10 MG/ML 20 ML VIAL IV ONE (09:15)
--- NOTE | 2022-04-24 09:23 | GI REPORT ---
Patient Name: Vaibhav Magaña Procedure Date: 04/24/2022 8:37 AM Date of : 1940 Admit Type: Inpatient Age: 82 Gender: Male Attending MD: Jessica Wiley DO Procedure: Colonoscopy Providers: Jessica Wiley DO Referring MD: Puneet Garner Md Indications: Rectal bleeding; last colonoscopy 04/13/2022 Medicines: Propofol per Anesthesia Complications: No immediate complications. Estimated blood loss: None. Estimated Blood Loss: Estimated blood loss: none. Procedure: Pre-Anesthesia Assessment: - Prior to the procedure, a History and Physical was performed, and patient medications, allergies and sensitivities were reviewed. The patient's tolerance of previous anesthesia was reviewed. - The risks and benefits of the procedure and the sedation options and risks were discussed with the patient. All questions were answered and informed consent was obtained. - Patient identification and proposed procedure were verified prior to the procedure by the physician and the nurse. The procedure was verified in the pre-procedure area in the procedure room. - Mental Status Examination: alert and oriented. Airway Examination: normal oropharyngeal airway and neck mobility. Respiratory Examination: clear to auscultation. CV Examination: normal. Abdominal Examination: bowel sounds present, abdomen soft and non-tender, no masses or organomegaly noted. - ASA Grade Assessment: III - A patient with severe systemic disease. After I obtained informed consent, the scope was passed under direct vision. Throughout the procedure, the patient's blood pressure, pulse, and oxygen saturations were monitored continuously. The Scope was introduced through the anus and advanced to the cecum, identified by appendiceal orifice and ileocecal valve. The colonoscopy was performed without difficulty. The patient tolerated the procedure well. The quality of the bowel preparation was fair. Findings: The perianal and digital rectal examinations were normal. Pertinent negatives include normal sphincter tone and no palpable rectal lesions. Hematin (altered blood/eiczgd-hwkfaw-kinb material) was found in the entire colon. Multiple small and large-mouthed diverticula were found in the sigmoid colon and descending colon. The retroflexed view of the distal rectum and anal verge was normal and showed no anal or rectal abnormalities. Impression: - Preparation of the colon was fair. - Old blood in the entire examined colon. Flushed copiously. No active bleeding throughout the entire colon. Site where AVMs were cauterized found in the ascending colon. No clot. No active bleeding. - Diverticulosis in the sigmoid colon and in the descending colon. - The distal rectum and anal verge are normal on retroflexion view. - No specimens collected. Recommendation: - [facility]. - Resume regular diet. - No aspirin, ibuprofen, naproxen, or other non-steroidal anti-inflammatory drugs. Patient has been taking 2+ full strength ASA daily leading up to his colonoscopy 11 days ago. THis should not be resumed unless absolutely necessary. Jessica Wiley D.O. Jessica Wiley, 04/24/2022 9:23:18 AM This report has been signed electronically. Note Initiated On: 04/24/2022 8:37 AM Number of Addenda: 0 I attest to the content of the Intraoperative Record and orders documented therein, exceptions below {[id number]}
--- NOTE | 2022-04-24 10:07 | Hospitalist Progress Note ---
Date of Service April 24, 2022 Assessment & Plan (1) Lower gastrointestinal hemorrhage: (2) AVM (arteriovenous malformation) of colon: Plan: Presented from home with hematochezia. Last hematochezia 2am per patient. Hb continues to drift down 13->10.6->10.1->10->9.5. Will continue to trend, might need transfusion if <8 or symptomatic. He is agreeable if needed. On oral iron supplementation. S/p recent colonoscopy on 04/13/2022 -- - Three recently bleeding colonic angiectasias. Treated with argon plasma coagulation (APC). Mild diverticulosis in the sigmoid colon and in descending colon. Internal hemorrhoids. Currently hemodynamically stable GI following- there was plan for colonoscopy today but patient could not complete bowel prep due to events from last evening (3) Hypertension: Plan: BP controlled, continue amlodipine Noted history of abnormal stress test 12/2021 --patient was offered cardiac cath for additional work-up however patient has declined (4) HLD (hyperlipidemia): Plan: Statin intolerant (5) DVT prophylaxis: Plan: SCDs due to GI bleeding Admission and Anticipated Discharge Date Admission Date: April 23, 2022 Subjective He feels okay. Last bloody BM was 2 am. He could not complete the bowel prep due to the events yesterday. No CP, N/V, lightheadedness. Has some pain in lower abdomen. Physical Exam Physical Exam: General: Sitting comfortably in bed, not in distress, on room air HEENT: EOMI, NAHUM, MMM Chest: Clear breath sounds bilaterally, no wheezes or crackles CVS: Regular rate and rhythm, normal heart sounds, no murmur Abdomen: Soft, mild lower abdominal tenderness, not distended, normal bowel sounds Neuro: Awake, alert, oriented, conversing well, non focal Extremities: No cyanosis, clubbing or edema Results & Data Results & Data ([facility]) Vital Signs (Past 12 Hours) Vital Signs Temp Pulse Pulse Pulse Resp BP Pulse Ox 04/24/22 09:47 59 L 18 151/84 H 97 04/24/22 09:32 62 18 140/85 97 04/24/22 09:17 68 18 138/61 98 04/24/22 08:18 36.6 C 72 16 167/71 H 98 08/01/22 07:32 69 04/24/22 07:35 36.8 C 68 16 137/67 97 04/24/22 03:11 36.7 C 80 18 132/71 98 04/23/22 22:57 84 04/23/22 22:58 36.8 C 87 18 166/70 H 96 O2 Del Method 04/24/22 09:47 Room Air 04/24/22 09:32 Room Air 04/24/22 09:17 Room Air 04/24/22 08:18 Room Air 04/24/22 07:32 04/24/22 07:35 Room Air 04/24/22 03:11 Room Air 04/23/22 22:57 04/23/22 22:58 Room Air Laboratory Results Short CBC 04/23/22 04/23/22 04/23/22 Range/Units 10:06 17:49 19:37 WBC 7.12 9.00 (4.8-10.8) K/ul Hgb 13.2 L 10.6 L 10.1 L (14.0-18.0) g/dl Hct 39.8 L 31.8 L 30.2 L (40.1-51.0) % Plt Count 198 158 (130-400) K/uL 04/24/22 04/24/22 Range/Units 00:37 06:34 WBC 6.06 (4.8-10.8) K/ul Hgb 10.0 L 9.5 L (14.0-18.0) g/dl Hct 29.6 L 28.1 L (40.1-51.0) % Plt Count 152 (130-400) K/uL BMP 04/23/22 04/23/22 04/24/22 10:06 19:37 06:34 Sodium 139 138 142 Potassium 4.3 3.9 3.9 Chloride 104 106 111 H Carbon Dioxide 25 26 25 BUN 17 16 11 Creatinine 1.16 1.08 0.91 Glucose 102 H 122 H 107 H Calcium 9.4 7.8 L 8.0 L Liver Function 04/23/22 Range/Units 10:06 Total Bilirubin 0.4 (0.2-1.0) mg/dl Direct Bilirubin 0.1 (0-0.2) mg/dl AST 23 (13-39) U/L ALT 18 (7-52) U/L Alkaline Phosphatase 79 (34-104) U/L Albumin 4.4 (3.4-5.0) gm/dl Medications Administered Current Inpatient Medications Acetaminophen (Acetaminophen 325 Mg Tab) 650 mg PO Q4H PRN PRN Reason: pain/fever Stop: 05/23/22 15:21 Ferrous Sulfate (Ferrous Sulfate 325 Mg Tab) 325 mg PO DAILY GISELA Stop: 05/24/22 08:59 Dextrose/Sodium Chloride (D5w And Nss) 1,000 mls @ 100 mls/hr IV .Q10H GISELA Stop: 04/24/22 15:07 Last Infusion: 04/24/22 07:55 Dose: 0 mls/hr
[2022-04-24] MEDS: FERROUS SULFATE 325 MG TAB PO SCH (10:15)
[2022-04-24] MEDS: SODIUM CHLORIDE 0.9% 1000ML 1,000 ML IV SCH ×2 (10:18→20:04)
[2022-04-24 12:29] LABS: Hematocrit (blood only) 30.9 % (40.1-51.0); Hemoglobin 10.3 g/dl (14.0-18.0)
[2022-04-25] MEDS: SODIUM CHLORIDE 0.9% 1000ML 1,000 ML IV SCH (05:56)
[2022-04-25] MEDS: FERROUS SULFATE 325 MG TAB PO SCH (07:14)
[2022-04-25 08:06] LABS: Hematocrit (blood only) 29.6 % (40.1-51.0); Hemoglobin 9.8 g/dl (14.0-18.0)
[2022-04-25 08:33] LABS: BUN Creatinine Ratio 9.1 (10-20); Calcium 8.3 mg/dl (8.5-10.1); Creatinine Clr Calc Pharmacy 55.5 ml/min; Est GFR (Non-African American) 71.6 ml/min; Potassium 3.8 mmol/L (3.5-5.1)
--- NOTE | 2022-04-25 16:22 | Discharge Summary ---
Date of Service April 25, 2022 Admission HPI Per Admitting Provider 82-year-old male with PMH HLD, moderate to severe mitral regurgitation, HTN, GERD, Mnire's disease, rosacea, and other problems listed below who presents the ED for evaluation of bright red bleeding per rectum. Patient underwent colonoscopy on 04/13/2022 after outpatient fecal occult blood was positive. Colonoscopy showed 3 bleeding colonic angioectasias that were treated with APC. There was also mild diverticulosis and internal hemorrhoids noted. Patient reports 1 episode of diarrhea yesterday. This morning, he had another episode of diarrhea with bright red blood. Patient reports about 6 episodes of bright red bleeding per rectum this morning. Has right lower quadrant abdominal discomfort that is a chronic issue for him. Denies nausea or vomiting. Had an episode of lightheadedness earlier in the week that he attributes to his Mnire's disease. Denies chest pain shortness of breath. No syncopal events. Denies fevers and chills. No urinary symptoms. In the ED, patient is hemodynamically stable and labs show Hgb 13.2. Patient was given IVF Admission Exam Per Admitting Provider Constitutional: WD/WN, vitals as above Eyes: PERRL, conjunctivae normal, anicteric sclerae ENMT: external ear and nose normal, oropharynx normal Respiratory: normal respiratory effort, lungs clear to auscultation Cardiovascular: Rate/Rhythm: regular rate and regular rhythm Heart Sounds: + murmur (Grade 4/6, systolic, best heard over fifth ICS) Vessels: normal peripheral pulses Extremities: no edema Gastrointestinal (Abdomen): normal bowel sounds, soft, nontender, no hepatosplenomegaly Musculoskeletal: no cyanosis or clubbing, extremities motor strength 5/5 Skin: no rashes, warm and dry Neurologic: PERRL, EOMI, accommodation nl, no face palsy, no dysarthria Psychiatric: A+Ox3, euthymic affect Principal Diagnosis Lower GI bleeding likely diverticular Discharge Exam General: Sitting comfortably in bed, not in distress, on room air HEENT: EOMI, NAHUM, MMM Chest: Clear breath sounds bilaterally, no wheezes or crackles CVS: Regular rate and rhythm, normal heart sounds, no murmur Abdomen: Soft, non tender, not distended, normal bowel sounds Neuro: Awake, alert, oriented, conversing well, non focal Extremities: No cyanosis, clubbing or edema Discharge Data Allergies Allergy/AdvReac Type Severity Reaction Status Date / Time No Known Allergies Allergy Unknown Verified 04/13/22 09:21 Consultations 04/23/22 12:19 ED Decision to Admit Stat 04/23/22 15:22 Consult Gastroenterology Routine Procedures Performed Operation Date: 04/24/22 16:30 Actual Procedures p Colonoscopy - Jessica Wiley, Ordered Studies 04/23/22 10:02 CT abd pelvis IV con only Stat Laboratory Results WBC 6.06 K/ul (4.8-10.8) 04/24/22 06:34 RBC 3.05 M/uL (4.63-6.08) L 04/24/22 06:34 Hgb 9.8 g/dl (14.0-18.0) L 04/25/22 07:43 Hct 29.6 % (40.1-51.0) L 04/25/22 07:43 MCV 92.1 fL (80.0-100.0) 04/24/22 06:34 MCH 31.1 pg (25.0-34.0) 04/24/22 06:34 MCHC 33.8 g/dL (32.0-36.0) 04/24/22 06:34 RDW Std Deviation 48.7 fL (36.4-46.3) H 04/24/22 06:34 RDW Coeff of Anamika 14.3 % (11.5-14.5) 04/24/22 06:34 Plt Count 152 K/uL (130-400) 04/24/22 06:34 MPV 11.4 fL (9.4-12.4) 04/24/22 06:34 Immature Gran % (Auto) 0.3 % 04/23/22 10:06 Neut % (Auto) 74.0 % 04/23/22 10:06 Lymph % (Auto) 14.9 % 04/23/22 10:06 Bath % (Auto) 8.3 % 04/23/22 10:06 Eos % (Auto) 1.5 % 04/23/22 10:06 Baso % (Auto) 1.0 % 04/23/22 10:06 Neut # (Auto) 5.27 K/uL (1.4-6.5) 04/23/22 10:06 Lymph # (Auto) 1.06 K/uL (1.2-3.4) L 04/23/22 10:06 Bath # (Auto) 0.59 K/uL (0.24-0.82) 04/23/22 10:06 Eos # (Auto) 0.11 K/uL (0-0.50) 04/23/22 10:06 Baso # (Auto) 0.07 K/uL (0-0.2) 04/23/22 10:06 Immature Gran # (Auto) 0.02 K/uL (0.00-0.02) 04/23/22 10:06 PT 10.6 Seconds (9.0-12.0) 04/23/22 10:06 INR 1.0 (0.9-1.1) 04/23/22 10:06 APTT 27.3 Seconds (21.0-31.0) 04/23/22 10:06 PTT Ratio 1.0 04/23/22 10:06 Sodium 140 mmol/L (136-145) 04/25/22 07:43 Potassium 3.8 mmol/L (3.5-5.1) 04/25/22 07:43 Chloride 111 mmol/L (98-107) H 04/25/22 07:43 Carbon Dioxide 23 mmol/L (21-32) 04/25/22 07:43 Anion Gap 6 (3-11) 04/25/22 07:43 BUN 9 mg/dl (6-23) 04/25/22 07:43 Creatinine 0.99 mg/dl (0.6-1.4) 04/25/22 07:43 Est Cr Clr Drug Dosing 55.5 ml/min 04/25/22 07:43 Est GFR ( Amer) 83.0 ml/min 04/25/22 07:43 Est GFR (Non-Af Amer) 71.6 ml/min 04/25/22 07:43 BUN/Creatinine Ratio 9.1 (10-20) L 04/25/22 07:43 Glucose 95 mg/dl (70-99(Fasting)) 04/25/22 07:43 Lactate 2.0 mmol/L (0.4-2.0) 04/23/22 19:45 Calcium 8.3 mg/dl (8.5-10.1) L 04/25/22 07:43 Magnesium 1.8 mg/dl (1.7-2.4) 04/23/22 19:37 Total Bilirubin 0.4 mg/dl (0.2-1.0) 04/23/22 10:06 Direct Bilirubin 0.1 mg/dl (0-0.2) 04/23/22 10:06 AST 23 U/L (13-39) 04/23/22 10:06 ALT 18 U/L (7-52) 04/23/22 10:06 Alkaline Phosphatase 79 U/L (34-104) 04/23/22 10:06 Total Protein 7.9 gm/dl (6.0-8.3) 04/23/22 10:06 Albumin 4.4 gm/dl (3.4-5.0) 04/23/22 10:06 Lipase 46 U/L (11-82) 04/23/22 10:06 Stl C. cayetanensis PCR Not Detected (NotDetected) 04/23/22 12:55 Stool Rotavirus A PCR Not Detected (NotDetected) 04/23/22 12:55 Stl Adenov F 40/41 PCR Not Detected (NotDetected) 04/23/22 12:55 Stool Astrovirus (PCR) Not Detected (NotDetected) 04/23/22 12:55 Stool Campylobacter PCR Not Detected (NotDetected) 04/23/22 12:55 Stl C. diff Tox A/B PCR Not Detected (NotDetected) 04/23/22 12:55 Stool Cryptosporidium PCR Not Detected (NotDetected) 04/23/22 12:55 Stl E.coli Shiga Tox PCR Not Detected (NotDetected) 04/23/22 12:55 Stl Enterotoxigenic E PCR Not Detected (NotDetected) 04/23/22 12:55 Stool EPEC (PCR) Not Detected (NotDetected) 04/23/22 12:55 Stool EAEC (PCR) Not Detected (NotDetected) 04/23/22 12:55 Stl E. histolytica PCR Not Detected (NotDetected) 04/23/22 12:55 Stool Giardia Lamblia PCR Not Detected (NotDetected) 04/23/22 12:55 Stool Salmonella PCR Not Detected (NotDetected) 04/23/22 12:55 Stool Sapovirus (PCR) Not Detected (NotDetected) 04/23/22 12:55 Stl P. shigelloides PCR Not Detected (NotDetected) 04/23/22 12:55 Stl Shigella/EIEC PCR Not Detected (NotDetected) 04/23/22 12:55 St Y.enterocolitica PCR Not Detected (NotDetected) 04/23/22 12:55 Stool Vibrio (PCR) Not Detected (NotDetected) 04/23/22 12:55 Stl Vibrio cholerae PCR Not Detected (NotDetected) 04/23/22 12:55 Stl Norovirus GI/GII PCR Not Detected (NotDetected) 04/23/22 12:55 SARS-CoV-2, RNA, NAAT NEGATIVE (NEGATIVE) 04/23/22 Unknown Blood Type A Positive 04/23/22 19:45 Antibody Screen NEGATIVE 04/23/22 19:45 Impressions Abdomen/Pelvis CT 04/23/22 10:02 CT OF THE ABDOMEN AND PELVIS WITH CONTRAST CLINICAL HISTORY: Right lower quadrant pain. Bloody diarrhea. COMPARISON STUDY: None. TECHNIQUE: Following IV administration of 94 mL of Optiray, axial images of the abdomen and pelvis were obtained from the lung bases to the proximal femurs. Images were reviewed in the axial, sagittal, and coronal planes. IV contrast was administered without complication. Automated exposure control was utilized for the study. A dose lowering technique was utilized adhering to the principles of ALARA. CT DOSE: 267.60 mGy.cm FINDINGS: Lung bases are unremarkable. No pneumatosis, free air or portal venous gas is present. Liver, spleen, adrenal glands, kidneys and pancreas are unremarkable. No biliary or pancreatic ductal dilatation. No hydronephrosis. Suspected excreted contrast within the collecting systems. Caliber and wall thickness of small and large bowel are normal. The appendix is not visualized. Note is made of linear hyperdense intraluminal material within the cecum shown best on axial image 299 of 436. Colonic diverticulosis is noted without evidence for acute diverticulitis. Left inguinal hernia repair is present. No acute fracture or suspicious lesion within visualized skeletal structures. Normal caliber abdominal aorta with extensive atherosclerotic plaque. No lymphadenopathy. No ascites. No fluid collection to suggest an abscess. IMPRESSION: 1. Linear hypodense intraluminal material within the cecum. Although possibly artifactual, this finding favors active GI bleed with intraluminal contrast extravasation. GI consultation is recommended. 2. Colonic diverticulosis. No evidence for acute diverticulitis. No bowel obstruction. ACT 112: Negative or not required by law. Electronically signed by: Santiago Cottrell M.D. 04/23/2022 11:49 AM Hospital Course (1) Lower gastrointestinal hemorrhage: Presented from home with hematochezia. Last hematochezia yesterday morning. CT A/P reviewed. S/p colonoscopy which did not show any active bleeding or clots. Hb trend has stabilized with no further evidence of bleeding. He was on high dose ASA 325 bid prior to ED presentation. Discontinuing aspirin per GI recommendation. Discussed with Dr Earl- no indication for ASA now and can be discontinued at discharge. He has upcoming appointment with cardio in a week and will discuss with cardio further. - Hb trend 13->10.6->10.1->10->9.5->10.3->9.8. - Hemodynamically stable, no orthostasis or dizziness. Ambulating independently - Continue oral iron supplementation at discharge - OP follow up CBC with PCP - F/u with GI Of note, he is s/p recent colonoscopy on 04/13/2022 -- - Three recently bleeding colonic angiectasias. Treated with argon plasma coagulation (APC). Colonoscopy 04/24/22 Findings: The perianal and digital rectal examinations were normal. Pertinent negatives include normal sphincter tone and no palpable rectal lesions. Hematin (altered blood/[id number]-[id number]-ohpt material) was found in the entire colon. Multiple small and large-mouthed diverticula were found in the sigmoid colon and descending colon. The retroflexed view of the distal rectum and anal verge was normal and showed no anal or rectal abnormalities. Impression: - Preparation of the colon was fair. - Old blood in the entire examined colon. Flushed copiously. No active bleeding throughout the entire colon. Site where AVMs were cauterized found in the ascending colon. No clot. No active bleeding. - Diverticulosis in the sigmoid colon and in the descending colon. - The distal rectum and anal verge are normal on retroflexion view. - No specimens collected. Recommendation: - No aspirin, ibuprofen, naproxen, or other non-steroidal anti-inflammatory drugs. Patient has been taking 2+ full strength ASA daily leading up to his colonoscopy 11 days ago. This should not be resumed unless absolutely necessary. (2) AVM (arteriovenous malformation) of colon: s/p recent colonoscopy on 04/13/2022 -- - Three recently bleeding colonic angiectasias. Treated with argon plasma coagulation (APC). (3) Hypertension: BP controlled, continue amlodipine Noted history of abnormal stress test 12/2021 --patient was offered cardiac cath for additional work-up however patient has declined Follow up with cardio (4) HLD (hyperlipidemia): Statin intolerant Total Time Total Time Spent Total Time Spent (In Minutes): 40 Discharge Plan Discharge Items Patient Disposition: Home - Self-Care Reason For Visit: LOWER GI BLEED Discharge Diagnosis: Hematochezia, likely diverticular bleed Activity: Resume your previous activity Non-emergency contact: Primary Care Provider Call non-emergency contact if: you have any medication questions and your symptoms worsen Follow-up/Referrals: Ninfa Arriaga DO [Primary Care Provider] - (Date & Time 05/01/2022 11:20 AM Provider Ninfa Arriaga DO Department [facility] ) Shruti Friedman PA-C [Physician Aircraft Painter] - (Date & Time 05/03/2022 9:30 AM Provider Shruti Friedman PA-C Department Cardiology, [facility] ) Diet: Heart Healthy Addtl Attending Provider Instructions: Continue your iron pills Discontinue the high dose aspirin you have been taking. Don't take over the counter pain medications. Tylenol is okay. I spoke to Dr Earl- no indication to take aspirin now- see him in the office to discuss whether you need to take baby aspirin or not. Follow up with cardiology and GI Recommend repeat blood work CBC in a week and follow up with family doctor Pending Studies at Discharge: No Stand-Alone Forms: My [facility] [employer], Smoking Cessation Medications and DC Order Prescriptions: Continued Osteo Bi-Flex Triple Strength 750 mg-644 mg- 30 mg-1 mg Tablet 1 tab PO QAM amlodipine 2.5 mg Tablet 2.5 mg PO QAM doxycycline monohydrate 100 mg Tablet 100 mg PO QAM Probiotic Acidophilus 1.5 mg (250 million cell) Capsule 1,000 mmu cells PO QAM ferrous sulfate 325 mg (65 mg iron) Tablet 325 mg PO DAILY Linzess 72 mcg capsule 72 mcg PO DAILY Discontinued aspirin 325 mg Capsule 325 mg PO BID Discharge Orders: Discharge Order (Routine); Ordered 04/25/22 Ordered By: Puneet Garner Admission Data Admit Date/Time: 04/23/22 13:20 Attending Provider: Puneet Garner Admit Provider: Puneet Garner Primary Care Provider: Ninfa Arriaga Other Providers: Jayna Gotti ; Estuardo Eastman Other Interventions: Discharge Summary Assessment (RN) Last Done: 04/25/22 09:41
== END 2022-04-25 10:06 | disposition home or self-care (01) ==
LOC: 2W 09:33 → ED 09:33 → 2W 14:52

== ENCOUNTER 2024-11-21 08:19 | Inpatient (IN) ==
--- NOTE | 2024-11-21 08:33 | Emergency Department Note ---
History of Present Illness General Chief complaint: Rectal Bleed Stated complaint: BLEEDING/RECTAL Time Seen by Provider: 11/21/24 08:29 History of Present Illness This is an 84-year-old male that presents to the emergency department via private vehicle with complaints of "rectal bleeding". The patient notes that for the past 3 days resume blood in the stool. Did see PCP on Sunday has had worsening symptoms since that time. Notes history of similar status post colonoscopy in April 2022. Does take low-dose aspirin daily but did not take this morning. No anticoagulant use. He has had intermittent lower abdominal discomfort depending on position change. No dizziness or lightheadedness. No chest pain or shortness of breath. No anticoagulant use. Review of ED note dated 04/23/2022 does reveal similar presentation for evaluation of rectal bleeding. Patient at that time was admitted. He had a CT scan performed then which showed linear hypodense intraluminal material within the cecum. They note this does favor active GI bleed with intraluminal contrast extravasation. Patient was ultimately admitted. Home Medications Medication Instructions Recorded Confirmed Type amlodipine 2.5 mg tablet 5 mg PO QAM 12/06/21 11/21/24 History doxycycline monohydrate 100 mg 100 mg PO UD 12/06/21 11/21/24 History tablet glucosamine 750 [id number] 1 tab PO UD 12/06/21 11/21/24 History no1 644 mg-C 30 mg-kelly 1 mg tablet (Osteo Bi-Flex Triple Strength) aspirin 81 mg capsule 81 mg PO QAM 01/26/23 11/21/24 History omega-3 fatty acids 1,000 mg PO UD 07/15/24 11/21/24 History albuterol sulfate 90 mcg/actuation 1 puff inhalation DIRECTED PRN 11/21/24 11/21/24 History aerosol inhaler sob prednisone 20 mg tablet 20 mg PO DIRECTED 11/21/24 11/21/24 History Allergies Allergy/AdvReac Type Severity Reaction Status Date / Time No Known Allergies Allergy Unknown Verified 07/15/24 13:36 Past Med/Surg History Problem List (Updated 11/21/24 @ 12:05 by Vane Esqueda PA-C) Acute blood loss anemia Acute GI bleeding (Acute) Lipoma of scalp HLD (hyperlipidemia) Colon polyp Encounter for pre-operative examination Mitral regurgitation Medical History Umbilical hernia Left inguinal hernia HLD (hyperlipidemia) Hx of colonic polyps History of transesophageal echocardiography (CIARA) History of GI bleed (04/2022) 04/2022- no recurrence CAD (coronary artery disease) Probable CAD, Hx abnormal stress test 12/2021: patient declined cardiac cath and decision for medical management by cardiology Hypertension GERD (gastroesophageal reflux disease) diet regulated, no medications Mitral valve regurgitation Follows with Dr. Earl; most recent ECHO 07/30/23: moderate bileaflet MVP, mod-severe mid systolic MR, mitral regurgitation jet is posteriorly directed Surgical History Hx of colonoscopy with polypectomy Hx of excision of mass x3 lipoma, neck : most recent: 05/21/23: MAC without issue History of esophagogastroduodenoscopy (EGD) Hx of left inguinal hernia repair History of appendectomy Hx of bilateral cataract extraction Family History Brother Colorectal cancer Sister Colorectal cancer Other No family history of adverse response to anesthesia Social History Smoking Status: Former smoker Tobacco Type: Cigarettes Second Hand Exposure: No; Do You Dip or Chew Tobacco: No; Hx Alcohol Use: Yes Hx Substance Use: No Preferred Language: Kinyarwanda Communication Ability: Effective Press Operator Printing Required: No Beliefs That Will Affect Care: None Current Living Situation: Spouse Feels Safe at Home: Yes Assistive Devices: Denture - Upper and Denture - Lower Review of Systems A total of 10 systems reviewed and were otherwise negative Physical Exam Vital Signs Vital Signs - 24 hr 11/21/24 08:23 11/21/24 09:19 11/21/24 09:19 Temperature 36.3 C L Temperature Source Temporal Artery Scan Pulse Rate 73 75 Pulse Rate [Apical] 75 Pulse Rhythm Regular Pulse Rhythm [Apical] Regular Pulse Strength [Apical] Normal Respiratory Rate 18 18 18 Respiratory Effort / Characteristics Non-Labored Spontaneous Respiratory Depth Normal Respiratory Pattern Blood Pressure 171/62 H Blood Pressure [Left Arm] 146/71 H Blood Pressure Mean 98 Blood Pressure Mean [Left Arm] 96 Blood Pressure Position [Left Arm] Lying Pulse Oximetry 98 97 97 Oxygen Delivery Method Room Air Room Air Room Air Sepsis New/Unexplained Change in Mental Status No Sepsis Action Taken by Nursing No Action Required 11/21/24 11:00 Temperature Temperature Source Pulse Rate Pulse Rate [Apical] 61 Pulse Rhythm Pulse Rhythm [Apical] Regular Pulse Strength [Apical] Normal Respiratory Rate 19 Respiratory Effort / Characteristics Non-Labored Respiratory Depth Normal Respiratory Pattern Regular Blood Pressure Blood Pressure [Left Arm] 153/76 H Blood Pressure Mean Blood Pressure Mean [Left Arm] 101 Blood Pressure Position [Left Arm] Lying Pulse Oximetry 95 Oxygen Delivery Method Room Air Sepsis New/Unexplained Change in Mental Status Sepsis Action Taken by Nursing VITAL SIGNS - Vital signs and nursing notes were reviewed. Stable and afebrile. GENERAL - 84-year-old male appearing his stated age who is in no acute distress. Communicates well with provider and answers questions appropriately. SKIN - Without rashes. HEAD - NC/AT. EYES - PERRL with EOMI bilaterally. Sclera anicteric. EARS - No deformities of external structures noted on gross examination bilaterally. NOSE - Midline and without cyanosis. No epistaxis or purulent drainage noted. MOUTH/OROPHARYNX - Without perioral cyanosis. NECK - Neck with FROM. No nuchal rigidity. LUNGS - Chest wall symmetric without accessory muscle use, intercostals retractions, or central cyanosis. Normal vesicular breath sounds CTA B/L. No wheezes, rales, or rhonchi appreciated. CARDIAC - RRR ABDOMEN - Abdominal contour normal without pulsations or visible masses. BS normoactive all four quadrants. No tenderness, palpable masses, hepatosplenomegaly, or ascites noted. EXTREMITIES - No clubbing or peripheral cyanosis. +5/5 strength noted in UE/LE bilaterally. NEUROLOGIC - Cranial nerves II through XII grossly intact. PSYCH -alert, oriented and pleasant on exam. RECTALverbal consent was obtained. This was performed in the presence of product technology scientistmolly Alvarado. No hemorrhoids seen. Dark reddish stool noted and heme positive. Course Administered Medications Sodium Chloride (Nss) 500 mls @ 106 mls/hr IV .Q4H44M STA Stop: 11/21/24 15:17 Last Admin: 11/21/24 11:48 Dose: 106 mls/hr Documented By: HUAN Pantoprazole Sodium (Protonix) 40 mg in 10 mls @ 5 mls/min IV BID GISELA Stop: 12/21/24 10:59 Last Admin: 11/21/24 11:48 Dose: 5 mls/min Documented By: HUAN Discontinued Medications Ioversol (Optiray 320 100ml) 95 ml IV ONCE ONE Stop: 11/21/24 09:47 Last Admin: 11/21/24 09:46 Dose: 95 ml Documented By: CARLIN Medical Decision Making Laboratory Data 11/21/24 09:05 11/21/24 09:05 Lab Results 11/21/24 11/21/24 11/21/24 Range/Units 09:05 09:19 09:30 WBC 3.58 L (4.8-10.8) K/ul RBC 3.13 L (4.70-6.10) M/uL Hgb 9.4 L (14.0-18.0) g/dl POC Hgb 9.9 L (14.0-18.0) g/dl Hct 28.5 L (42.0-52.0) % POC Hct 29 L (42-52) % MCV 91.1 (80.0-100.0) fL MCH 30.0 (25.0-34.0) pg MCHC 33.0 (32.0-36.0) g/dL RDW Std Deviation 46.5 H (36.4-46.3) fL RDW Coeff of Anamika 14.1 (11.5-14.5) % Plt Count 143 (130-400) K/uL MPV 11.5 (9.4-12.4) fL PT 10.2 (9.0-12.0) Seconds INR 0.9 (0.9-1.1) APTT 26 (21-31) Seconds PTT Ratio 1.0 POC Sodium 141 (135-144) mmol/L Sodium 140 (136-145) mmol/L POC Potassium 3.9 (3.3-5.0) mmol/L Potassium 4.0 (3.5-5.1) mmol/L POC Chloride 108 (101-112) mmol/L Chloride 108 H (98-107) mmol/L Carbon Dioxide 28 (21-32) mmol/L POC Total CO2 23 L (24-31) mmol/L Anion Gap 4 (3-11) POC Anion Gap 16.0 (16-25) mmol/L POC BUN 15 (7-18) mg/dl BUN 16 (6-23) mg/dl Creatinine 1.04 (0.6-1.4) mg/dl POC Creatinine 1.0 (0.6-1.3) mg/dl Est Cr Clr Drug Dosing 51.2 ml/min eGFR 71.69 BUN/Creatinine Ratio 15.4 (10-20) Glucose 99 (70-99(Fasting)) mg/dl POC Glucose (other) 98 (70-99) mg/dl Calcium 9.3 (8.6-10.3) mg/dl POC Ioniz Calcium Radha 1.16 (1.12-1.32) mmol/l Total Bilirubin 0.4 (0.2-1.0) mg/dl AST 68 H (13-39) U/L ALT 71 H (7-52) U/L Alkaline Phosphatase 74 (34-104) U/L Troponin I High Sens 11.9 (0-20) pg/ml Total Protein 7.2 (6.0-8.3) gm/dl Albumin 4.3 (3.4-5.0) gm/dl Globulin 2.9 (2.5-4.0) gm/dl Albumin/Globulin Ratio 1.5 (0.9-2) POC Stool Occult Blood Positive A (Negative) Blood Type A Positive Antibody Screen NEGATIVE Crossmatch See Detail Imaging Data Radiologist's Impression: Abdomen/Pelvis CT 11/21/24 08:[address] WITH IV CONTRAST CT DOSE: 575.09 mGy.cm HISTORY: Acute generalized abdominal pain Abd pain, GI bleeding TECHNIQUE: Multiaxial CT images of the abdomen and pelvis were performed following the IV administration of 95 cc of Optiray, A dose lowering technique was utilized adhering to the principles of ALARA. COMPARISON STUDY: 04/23/2022 FINDINGS: Cardiomegaly with coronary artery calcifications. Mild bibasilar mucous plugging with atelectasis. No pneumatosis or pneumoperitoneum. Unremarkable spleen, pancreas, gallbladder, adrenal glands and liver appear unremarkable. 6 mm right hepatic lobe cyst. Patency of the hepatic and portal veins. Subcentimeter hypodensity of the inferior right hepatic lobe is too small to characterize. Unremarkable kidneys. No hydronephrosis. Subcentimeter probable cyst of the midpole right kidney. Mild prostatomegaly. Urinary bladder wall thickening with partial distention. Small fat filled right inguinal hernia. Prior left inguinal hernia repair. Atherosclerosis of the aorta without aneurysm. No lymphadenopathy. No bowel obstruction. Mild wall thickening of the cecum with partial distention. Colonic diverticulosis without acute diverticulitis. No ascites. Tiny fat filled umbilical hernia. No acute fracture. IMPRESSION: 1. No bowel obstruction or pneumoperitoneum. 2. Colonic diverticulosis without acute diverticulitis. 3. Additional findings as above. ACT 112: Negative or not required by law. The above report was generated using voice recognition software. It may contain grammatical, syntax or spelling errors. Electronically signed by: Nash Morataya M.D. 11/21/2024 10:29 AM MDM Narrative Patient was seen and evaluated as above in room B06. Review was performed of triage nursing notes and vital signs. I did review pertinent previous visits and patient history. After obtaining a thorough history and physical examination the above work up was performed. Patient presents to us today for evaluation of rectal bleeding. On my assessment there is some darker blood noted in the stool on rectal exam. EKG reveals sinus rhythm with PACs at 66 bpm. QTC 402. QRS 94. No ST elevation on this rhythm tracing. IV access with established. Labs were drawn. Patient hemodynamically stable. Pancytopenia noted with hemoglobin of 9.4, similar to previous in 2021. Coags normal. Emergent metabolic disturbances without significant abnormality. Mild transaminitis noted which is new compared to previous as available in the EMR. Troponin x 1 negative. Occult stool positive for blood. Type and screen pending at this time. CT scan was obtained of the abdomen/pelvis. Results as above. This was essentially negative for acute process. Patient does require hospitalization. Will proceed with discussion at this time with gastroenterology as well as the hospitalist service. I did speak with GI, he will come evaluate the patient. Please read further documentation regarding his stay. GCS: 15 In the evaluation and treatment of this patient the following differential diagnoses were entertained: GI bleed, anemia, electrolyte disturbance, among others Impression & Plan Acute GI bleeding Discharge Plan Visit Data Chief Complaint: Rectal Bleed Stated Complaint: BLEEDING/RECTAL ED Provider: Jono Anderson ED Midlevel Provider: Drew Matthews Discharge Problem: Acute GI bleeding Patient Disposition: Admitted As Inpatient Condition: Good Forms Stand Alone Forms: My [facility] [place] Prescriptions Prescriptions: No Action Osteo Bi-Flex Triple Strength 750 mg-644 mg- 30 mg-1 mg Tablet 1 tab PO UD Rx Instructions: 1 tab po qam. otc unable to verify amlodipine 2.5 mg Tablet 5 mg PO QAM Rx Instructions: Filled 11/13 90 day supply doxycycline monohydrate 100 mg Tablet 100 mg PO UD Rx Instructions: 100 mg po qam. filled 12/22/23 90 day supply aspirin 81 mg Capsule 81 mg PO QAM Rx Instructions: otc unable to verify Fish Oil Capsule 1,000 mg PO UD Rx Instructions: 1,000 mg po qam. otc unable to verify prednisone 20 mg tablet 20 mg PO DIRECTED Rx Instructions: filled 11/19 5 day supply albuterol sulfate 90 mcg/actuation HFA aerosol inhaler 1 puff INHALATION DIRECTED PRN (Reason: sob) Rx Instructions: filled 11/19 17 day supply Referrals Referrals: Ninfa Arriaga, [Outside Practitioners] -
--- OUTSIDE RECORDS SUMMARY | 2024-11-21 09:26 | External Medical Summary | Summary of Care ---
Author Name Unknown Organization [facility] Address [address] [place] [address] Phone [phone] Care Team Providers Care Soda Dialyzer Name Role Phone Elbert Keith MD Primary Care Provider [phone] Reason for Visit * Reason Comments Congestion Cough Acute Rectal Bleeding Encounter Details Date Type Department Care Team (Late st Contact Info) Description 11/19/2024 11:40 AM EST Office Visit General Internal Medicine [facility] [address] [place] [address] Elbert Keith MD [address] [place] [address] Acute bronchitis, antibiotics not indicated*; SOB (shortness of breath); Rectal bleeding; COVID-19 virus infection; HTN, goal below 140/90; Coronary artery disease involving cahuilla coronary artery 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 Active Aspirin EC 81 MG Oral Tablet Delayed Release Take by mouth 1 Tablet in the morning. 2 Active Fish Oil 1000 MG Oral Capsule Take 1 Capsule by mouth in the morning. Active amLODIPine Besylate 5 MG Oral Tablet (Norvasc) Take 1 Tablet by mouth in the morning. 90 Tablet 3 11/15/2024 8:51 AM EST 4 Active Doxycycline Hyclate 100 MG Oral CapsuleIndicatio ns:Rosacea Take 1 Capsule by mouth in the morning. 4 Active Fluticasone Propionate 50 MCG/ACT Nasal Suspension (Flonase)Indicat ions:PND (post-nasal drip) Administer 2 Sprays into each nostril at bedtime. 4 Active ProAir HFA 108 (90 Base) MCG/ACT Inhalation Aerosol SolutionIndicati ons:Acute bronchitis, antibiotics not indicated Inhale 2 Puffs by mouth every 4 hours as needed for Wheezing or Cough. 8.5 g 1 11/19/2024 2:18 PM EST 5 Active Spacer/Aero-Hold ing Chambers DeviceIndication s:Acute bronchitis, antibiotics not indicated Use with inhaler. 1 Each 11/19/2024 2:18 PM EST 5 Active Benzonatate 200 MG Oral CapsuleIndicatio ns:Acute bronchitis, antibiotics not indicated Take 1 Capsule by mouth 3 times a day as needed for Cough. 50 Capsule 1 11/19/2024 4:43 PM EST 5 Active predniSONE 20 MG Oral Tablet (Deltasone)Indic ations:Acute bronchitis, antibiotics not indicated Take 2 Tablets by mouth in the morning for 5 days. 10 Tablet 11/19/2024 4:43 PM EST 5 11/25/19 25 Active documented as of this encounter (statuses as of 11/19/2024) Active Problems Problem Noted Date Diagnosed Date Right inguinal hernia 06/20/2024 Umbilical hernia without obstruction and without gangrene 06/20/2024 Benign paroxysmal vertigo of left ear 07/17/2023 History of lower GI bleeding 07/17/2023 Vascular ectasia of colon 07/17/2023 History of anemia 07/17/2023 Coronary artery disease invo lving cahuilla coronary artery of cahuilla heart without angina pectoris 01/11/2023 Dyslipidemia, goal LDL below 70 01/11/2023 Statin intolerance 05/03/2022 Mitral valve prolapse 07/15/2021 Gastro-esophageal reflux disease without esophag itis 11/05/2020 Chronic maxillary sinusitis 10/03/2019 HTN, goal below 150/90 08/04/2019 Pure hypercholesterolemia 01/06/2019 Rosacea 01/06/2019 High risk for fracture due to osteoporosis by DE XA scan 01/06/2019 Mitral regurgitation 08/18/2012 Chronic rhinitis 01/03/2010 Degeneration of cervical intervertebral disc 08/2010 Meniere's disease, vestibular, active 01/03/2010 History of tobacco use 01/03/2010 documented as of this encounter (statuses as of 11/19/2024) Resolved Problems Problem Noted Date Diagnosed Date Resolved Date Post-nasal drip 01/06/2019 08/04/2019 Borderline blood pressure 01/06/2019 Lesion of right pinna 01/06/20192018 HTN, goal below 140/90 09/04/201201/12 Blanchard's esophageal ulceration 08/18/2012 01/12/2014 Vertebral fracture, pathological 02/16/2011 07/04/2018 Dyspnea and respiratory abnormality 01/04/2010 08/04/2019 Overview (07/17/2017): ICD-10 update of inactive term Deviated nasal septum 01/03/20102019 Subjective tinnitus 01/03/2010 08/04/20 19 Vertigo 01/03/2010 08/04/2019 Other specified forms of hearing loss 01/03/2010 08/04/2019 ADVANCE DIRECTIVE INFORMATION 03/08/2006 02/12/2017 Overview (03/08/2006): No, Advance Directive brochure given to patient at prior appointment. UNILAT INGUINAL HERNIA 05/05/200302/12 documented as of this encounter (statuses as of 11/19/2024) Immunizations Name Administration Dates Next Due COVID-19 mRNA, LNP-s, No Pre serve, 2-Dose Series ([email or web address]) 01/07/2021,12/16/2020 Pneumococcal Conjugate Vacc, 13 Valent (Prevnar) 05/03/2017 Pneumococcal Polysaccharide PPV23 (Pneumovax) Season Influenza, Quad, PF, Adjuvanted, 65+ Yrs, IM (FLUAD) 07/08/2020 Seasonal Influenza Vac., MDV, IM, 0.5 mL (Fluzon e) 07/03/2013,08/09/2010 Seasonal Influenza, High Dos e, Trivalent, PF, IM (Fluzone HD) 06/16/2024 Seasonal Influenza, PF, 6 M & above, IM , (FluLaval or Fluzone) 07/13/2022,07/04/2018 Seasonal Influenza, Quadrivalent Hd (Fluzone Hd) 10/26/2023,07/08/2021 Seasonal Influenza, Trivalen t, Adjuvanted, 65+ YRS, PF, (Fluad) 08/04/2019 TD, Preservative Free 02/16/2009 TDAP (age 10 and older)(Boostrix) 01/06/2019 Zoster Vaccine Recombinant (Shingrix) 06/14/2020 ,04/08/2020 documented as of this encounter Social History Tobacco Use Types Packs/Day Years Used Date Smoking Tobacco: Former Cigarettes 2 15 0 05/05/1957 - 05/05/1972 Smokeless Tobacco: Never Alcohol Use Standard Drinks/Week Comments Yes 0 (1 standard drink = 0.6 oz pur e alcohol) occ AUDIT-C Answer Date Recorded Frequency of Alcohol Consumption 2-4 times a sun07/01/2020 Average Number of Drinks 1 or 2 020 Frequency of Binge Drinking Not asked 04/2020 PHQ-2 Answer Date Recorded PHQ Adult Total Score 0 10/26/2023 Sex and Gender Information Value Date Recorded Sex Assigned at Male 02/24/2019 1:00 PM EDT Legal Sex Male 7:11 AM EST Gender Identity Male 02/24/2019 1:00 PM EDT Sexual Orientation Straight 02/24/2019 1: 00 PM EDT documented as of this encounter Last Filed Vital Signs Vital Sign Reading Time Taken Comments Blood Pressure 140/54 11/19/2024 11:40 AM EST Pulse 65 11/19/2024 11:40 AM EST Temperature 36.4 C (97.6 F) 11/19/2024 11:[address] Respiratory Rate 18 11/19/2024 11:40 AM EST Oxygen Saturation 97% 11/19/2024 11:40 AM EST Inhaled Oxygen Concentration - - Weight 69.4 kg (153 lb 1.6 oz) 11/19/2024 11:40 AM EST Height 176.5 cm (5' 9.49") 11/19/2024 11:[address] Body Mass Index 22.29 11/19/2024 11:40 AM EST documented in this encounter Progress Notes * Elbert Keith MD - 11/19/2024 11:59 AM EST Images from the original note were not included. Subjective Vaibhav Magaña is a 84 year old male that presents for Congestion, Cough, Acute, and Rectal Bleeding History of Present Illness The patient, with a history of COVID-19 infection six weeks ago, presents with a lingering cough and shortness of breath. The cough is described as productive with a change in sputum color from clearto yellow. The patient reports a sensation of bubbling or gurgling in the throat or lungs, particularly when lying down, leading to bouts of coughing that cause stomach discomfort. The coughing episodes are severe enough to disrupt sleep. In addition to respiratory symptoms, the patient reports rectal bleeding that started about a week ago. The bleeding is described as being on top of the stool and turning the toilet water red. The patient also reports a change in stool color to black for the past two weeks. The patient has a history of hemorrhoids, which he reports have migrated back inside. The patient also mentions a feeling ofemptiness in the stomach and changes in bowel habits, with bowel movements occurring after eating and producing small amounts of stool. The patient has been taking Metamucil for about half a year to aid bowel movements. The patient also mentions a sore tongue. He was on doxycycline which he has stopped and lately noticed few red bumps around his nostril and upper lip for several weeks. He has been taking doxycyclinefor this issue and needs to be renewed to continue. The patient has a history of smoking but quit several decades ago. Patient has not had COVID booster but did get flu shot this year Objective Vitals: 11/19/24 1140 Temp: 97.6 F (36.4 C) Pulse: 65 Resp: 18 SpO2: 97% BP: 140/54 BMI: 22.29 Physical Exam GENERAL: No acute distress, slightly hard of hearing, obese. HEENT: Erythema in the throat, ulcers on the tongue. No sinus tenderness NECK: Enlarged lymph node in the neck. CHEST: Bilateral breath sounds, slow expiratory phase, no crackles or wheezing. CARDIOVASCULAR: S1, S2 regular, with occasional extra beats. Aortic murmur present. ABDOMEN: Abdomen soft, non-tender. EXTREMITIES: No edema in extremities. I have reviewed the following results: Results LABS Hemoglobin: 12 g/dL (anemic) DIAGNOSTIC Colonoscopy: AVM, old blood, vessels cauterized (2021) Assessment and Plan Assessment & Plan Post-Acute Sequelae of SARS-CoV-2 infection (PASC) Persistent cough and shortness of breath since COVID-19 infection in September. Wheezing, chest tightness, and gurgling sensation in throat, especially when lying down. -Order chest X-ray to evaluate for possible pneumonia or fluid accumulation. --Add Flonase for nasal congestion and potential postnasal drainage. -Prescribe Albuterol inhaler with spacer for wheezing and airway relaxation. Use as directed when experiencing symptoms. -Consider adding prednisone based on chest X-ray results. Gastrointestinal Bleeding Daily rectal bleeding for the past week, with black, tarry stools for the past two weeks. History of arteriovenous malformation (AVM) and hemorrhoids. Recent use of ibuprofen and Aleve. -Order blood work to check hemoglobin and iron levels. -Discontinue ibuprofen and Aleve due to potential exacerbation of bleeding. -Continue baby aspirin for now, but consider holding for a week if bleeding does not stop. -Consider repeat colonoscopy if bleeding continues and hemoglobin levels are low. Oral Ulcers Persistent oral ulcers for several weeks. -these could be stress ulcers from being sick but also can be from anemia if he has been losing significant blood from bottom Follow-up Await results of chest X-ray and blood work. Follow-up appointment to be scheduled based on resultsand patient's symptom progression. Acute bronchitis, antibiotics not indicated (Primary) - XR CHEST 2 VIEWS; Future; Expected date: 11/19/2024- no pneumonia - ProAir HFA 108 (90 Base) MCG/ACT Inhalation Aerosol Solution; Inhale 2 Puffs by mouth every 4 hours as needed for Wheezing or Cough. - Spacer/Aero-Holding Chambers Device; Use with inhaler. - Benzonatate 200 MG Oral Capsule; Take 1 Capsule by mouth 3 times a day as needed for Cough. - predniSONE 20 MG Oral Tablet (Deltasone); Take 2 Tablets by mouth in the morning for 5 days. SOB (shortness of breath) - XR CHEST 2 VIEWS; Future; Expected date: 11/19/2024 Rectal bleeding - COMPREHENSIVE METABOLIC PANEL; Future; Expected date: 11/19/2024 - CBC; Future; Expected date: 11/19/2024- worse anemia - FERRITIN; Future; Expected date: 11/19/2024 - CBC; Future; Expected date: 12/03/2024 COVID-19 virus infection HTN, goal below 140/90 Coronary artery disease involving cahuilla coronary artery of cahuilla heart without angina pectoris Age-related osteoporosis without current pathological fracture Dyslipidemia, goal LDL below 70 Benign paroxysmal vertigo of left ear Chronic rhinitis Chronic maxillary sinusitis Abnormal LFTs - COMPREHENSIVE METABOLIC PANEL; Future; Expected date: 12/03/2024 Follow Up: Return if symptoms worsen or fail to improve. Wrap-Up Time: I spent a total of 40-54 minutes (exact time 44 mins) on the date of service in preparation, delivery, and documentation of the care provided to Vaibhav Magaña excluding any time spent in the performance of separately billed services. Text in this note was generated using an [employer] documentation service. I discussed the use of a device to record and summarize our discussion today. All persons present during the encounter consented to its use. documented in this encounter Nursing Notes * Dayami Fowler CMA - 11/19/2024 11:38 AM EST Pt here for ongoing COVID symptoms that he has been having since October 12. Pt states that he isstill coughing (gets really bad at night and he can't stop) and is not having bloody stools. documented in this encounter Miscellaneous Notes * Addendum Note - Elbert Keith MD - 11/19/2024 2:55 PM ESTAddended by: ELBERT KEITH on: 11/19/2024 02:55 PM Modules accepted: Orders, Level of Service documented in this encounter Plan of Treatment Upcoming Encounters Date Type Department Care Team (Late st Contact Info) Description 05/08/2025 11:30 AM EDT Office Visit Cardiology, [facility] [address] [place] [address] Vaibhav Earl, [address] [place] [address] Scheduled Orders Name Type Priority Associated Diagnoses Orde r Schedule COMPREHENSIVE METABOLIC PANEL Lab Routine Abnormal LFTs Expected: 12/03/2024, Expires: 11/19/2025 CBC Lab Routine Rectal bleeding Expected: 12/03/2024, Expires: 11/19/2025 Scheduled Procedures Name Priority Associated Diagnoses Date/Ti me COLONOSCOPY FLEXIBLE PROXIMAL DIAGNOSTIC Recall History of colon polyps Health Maintenance Due Date Last Done Comments *BISPHONATE OR OTHER ACCEPTABLE MEDICATION NEEDED FOR OSTEOPOROSIS (REFER TO SMARTSET #1146) 01/09/2019 DXA Scan 05/15/2019 05/15/2017, 06/25, 07/17/2011, Additional history exists Adult Wellness Visit 07/01/2022 07/01/2021 COVID-19 Vaccine ( season) 2024 01/07/2021, 12/16/2020 Depression Screening 10/26/2024 10/26/2023 Albumin/Creatinine Ratio 01/11/2025 01/11/2022 GFR 11/19/2025 11/19/2024, 08/24, 06/20/2024, Additional history exists Colonoscopy 04/24/2027 04/24/2022, 0809/2021, 04/13/2022, Additional history exists DTap/Tdap Vaccines (2 - Td or Tdap) 01/06/2029 01/06/2019, 02/16/2009 Pneumococcal Vaccine: 50+ Years Completed 05/03/2017, 01/06/2009 Zoster Vaccines Completed 06/14/2020, 04/08/2020 RETIRED - COLONOSCOPY-EVERY 5 YRS AGES 18-100 Discontinued 04/24/2022, 04/24/2022, 04/13/2022, Additional history exists Influenza Vaccine (FLU shot) Completed 06/16/2024, 10/26/2023, 07/13/2022, Additional history exists VITAMIN D LEVEL ONCE IN A LIFETIME-USE SMARTSET# 22537 Completed 09/05/2024, 01/28/2021, 06/20/2017, Additional history exists HPV (Gardasil) Vaccine Aged Out No lo nger eligible based on patient's age to complete this topic Hepatitis B Vaccine Aged Out No longe r eligible based on patient's age to complete this topic MENINGOCOCCAL (MENACTRA/MENVEO) Aged Out No longer eligible based on patient's age to complete this topic Meningitis B Vaccine (Bexsero/Trumemba) Aged Out No longer eligible based on patient's age to complete this topic documented as of this encounter Medical Devices Implanted Type Area Skilled Laborer Device Identifier Shelf Expiration Date Model / Serial / Lot Envista Toric [id number] Se +22.0 Cyl 2.00 Implanted:Qty: 1 on 11/11/2020 by Pk Chapa MD at OR [facility] Left: Eye 04/23/2021 [id number] / [id number] / [id number] Toric 200 21.5 Implanted:Qty: 1 on 11/23/2020 by Pk Chapa MD at OR [facility] Right: Eye 06/23/2021 [id number] / [id number] / documented as of this encounter Results * XR CHEST 2 VIEWS (11/19/2024 1:04 PM EST) Anatomical Region Laterality Modality Chest Computed Radiogr aphy 11/19/2024 1:10 PM EST Impressions 11/19/2024 1:08 PM EST IMPRESSION No acute cardiopulmonary disease. Narrative 11/19/2024 1:08 PM EST EXAM XR CHEST 2 VIEWS-11/19/2024 1:04 pm HISTORY covid 6 weeks ago adn SOB for last few weeks COMPARISON XR CHEST 2 VIEWS, ACC: [id number], dated 2021-12-30 13:04:48 TECHNIQUE 2 views consisting of PA and lateral projections FINDINGS Lungs hyperinflated suggestive of COPD. Lungs and pleural spaces are clear. Pulmonary vasculature is not engorged. Cardiomediastinal silhouette is normal. Procedure Note Chip Prasad MD - 11/19/2024 EXAM XR CHEST 2 VIEWS-11/19/2024 1:04 pm HISTORY covid 6 weeks ago adn SOB for last few weeks COMPARISON XR CHEST 2 VIEWS, ACC: [id number], dated 2021-12-30 13:04:48 TECHNIQUE 2 views consisting of PA and lateral projections FINDINGS Lungs hyperinflated suggestive of COPD. Lungs and pleural spaces areclear. Pulmonary vasculature is not engorged. Cardiomediastinalsilhouette is normal. IMPRESSION IMPRESSION No acute cardiopulmonary disease. Elbert Keith MD RADIOLOGY (RAD GENERAL) Final Result * FERRITIN (11/19/2024 12:30 PM EST) Pathologist [facility] Ferritin 73 30 - 400 ng/mL 11/19/2024 6:29 PM EST [facility] Blood Venous blood specimen / Unknown Venipuncture / Unknown 11/19/2024 12:30 PM EST 11/19/2024 12:31 PM EST Elbert Keith MD LAB BLOOD ORDERABLES Final Res ult [facility]ATORY [facility] [address] [place] [address] * (ABNORMAL) CBC (11/19/2024 12:30 PM EST) Pathologist [facility] WBC 2.98(L) 4.00 - 10.80 K/uL 11/19/2024 12:45 PM EST LABORATORY [place] 56- RBC 3.40 4.50 - 5.25 M/uL 11/19/2024 12:45 PM EST LABORATORY [place] 56-02 HGB 10.4(L) 14.0 - 16.8 g/dL 11/19/2024 12:45 PM EST LAB[facility]ATORY [place] 56-02 HCT 32.0(L) 40.0 - 48.4 % 11/19/2024 12:45 PM EST LAB[facility]ATORY [place] 56-02 MCV 94.1 82.0 - 99.5 fL 11/19/2024 12:45 PM EST [facility]ATORY [place] 56- MCH 30.6 27.0 - 34.0 pg 11/19/2024 12:45 PM EST [facility] 56 MCHC 32.5 32.0 - 36.0 g/dL 11/19/2024 12:45 PM EST [facility] 56 RDW 14.2 11.5 - 15.5 % 11/19/2024 12:45 PM EST [facility] 56 PLT 140 140 - 400 K/uL 11/19/2024 12:45 PM EST [facility] 56 MPV 11.5 6.6 - 11.1 fL 11/19/2024 12:45 PM EST [facility] 56 Blood Venous blood specimen / Unknown Venipuncture / Unknown 11/19/2024 12:30 PM EST 11/19/2024 12:31 PM EST us Elbert Keith MD LAB BLOOD ORDERABLES Final Res ult [facility] [address] [place] [address] * (ABNORMAL) COMPREHENSIVE METABOLIC PANEL (11/19/2024 12:30 PM EST) BUN 19 6 - 20 mg/dL 11/19/2024 2:30 PM [facility] 56 CREATININE 1.0 0.6 - 1.2 mg/dL 11/19/2024 2:30 PM [facility] 56 EGFR 73 >=60 mL/min 11/19/2024 2:30 PM [facility] 56 Comment:eGFR is calculated b ased on the CKD-EPI 2020 equation. SODIUM 142 135 - 146 mmol/L 11/19/2024 2:30 PM EST [facility] 56 POTASSIUM 4.6 3.5 - 5.1 mmol/L 11/19/2024 2:30 PM [facility] 56 CHLORIDE 104 98 - 107 mmol/L 11/19/2024 2:30 PM [facility] 56 CO2 25 22 - 32 mmol/L 11/19/2024 2:30 PM [facility] 56 ANION GAP 13 7 - 15 mmol/L 11/19/2024 2:30 PM [facility] 56 GLUCOSE 96 70 - 120 mg/dL 11/19/2024 2:30 PM EST [facility] 56- Albumin 4.2 3.8 - 5.0 g/dL 11/19/2024 2:30 PM EST [facility] 56- AST 115(H) 10 - 50 U/L 11/19/2024 2:30 PM EST [facility] 56- Alkaline Phosphatase 90 35 - 130 U/L 11/19/2024 2:30 PM [facility] 56- Bilirubin, Total 0.2 <=1.2 mg/dL 11/19/2024 2:30 PM EST [facility] 56- CALCIUM 9.0 8.4 - 10.2 mg/dL 11/19/2024 2:30 PM [facility] 56- Protein 7.0 6.0 - 8.3 g/dL 11/19/2024 2:30 PM [facility] 56- ALT 98(H) 10 - 50 U/L 11/19/2024 2:30 PM [facility] 56 Blood Venous blood specimen / Unknown Venipuncture / Unknown 11/19/2024 12:30 PM EST 11/19/2024 12:31 PM EST Elbert Keith MD LAB BLOOD ORDERABLES Final Res ult [facility] [address] [place] [address] documented in this encounter Visit Diagnoses Diagnosis Acute bronchitis, antibiotics not indicated- Primary Acute bronchitis SOB (shortness of breath) Shortness of breath Rectal bleeding Hemorrhage of rectum and anus COVID-19 virus infection HTN, goal below 140/90 Unspecified essential hypertension Coronary artery disease involving cahuilla coronary artery of cahuilla heart without angina pectoris Age-related osteoporosis without current pathological fracture Senile osteoporosis Dyslipidemia, goal LDL below 70 Other and unspecified hyperlipidemia Benign paroxysmal vertigo of left ear Benign paroxysmal positional vertigo Chronic rhinitis Chronic maxillary sinusitis Abnormal LFTs Other abnormal blood chemistry Acute bronchitis, antibiotics not indicated Acute bronchitis SOB (shortness of breath) Shortness of breath documented in this encounter Care Teams Soda Dialyzer Relationship Specialty Start Date End Date Elbert Keith MD [address] [place] [address] PCP - General Internal Medicine 01/24/24 documented as of this encounter
--- OUTSIDE RECORDS SUMMARY | 2024-11-21 09:26 | External Medical Summary | Summary of Care ---
Author Name Unknown Organization [facility] Address [address] [place] [address] Phone [phone] Care Team Providers Care Stem Dryer Maintainer Name Role Phone Elbert Keith MD Primary Care Provider [phone] Reason for Visit * Reason Comments Congestion Cough Acute Rectal Bleeding Encounter Details Date Type Department Care Team (Late st Contact Info) Description 11/19/2024 11:40 AM EST Office Visit General Internal Medicine [facility] [address] [place] [address] Elbert Keith MD [address] [place] [address] Acute bronchitis, antibiotics not indicated*; SOB (shortness of breath); Rectal bleeding; COVID-19 virus infection; HTN, goal below 140/90; Coronary artery disease involving [place] coronary artery of [place] heart without angina pectoris; Age-related osteoporosis without current pathological fracture; Dyslipidemia, goal LDL below 70; Benign paroxysmal vertigo of left ear; Chronic rhinitis; Chronic maxillary sinusitis; Abnormal LFTs Allergies No known active allergiesdocumented as of this encounter (statuses as of 11/19/2024) Medications [facility] [employer] (OSTEO BI-FLEX ADV TRIPLE ST) [...] anemia 07/17/2023 Coronary artery disease invo lving [place] coronary artery of [place] heart without angina pectoris 01/11/2023 Dyslipidemia, goal [...] mRNA, LNP-s, No Pre serve, 2-Dose Series ([employer]) 01/07/2021,12/16/2020 Pneumococcal Conjugate Vacc, 13 Valent (Prevnar) [...] goal below 140/90 Coronary artery disease involving [place] coronary artery of [place] heart without angina pectoris Age-related osteoporosis without [...] in this note was generated using an [employer] documentation service. I discussed the use of [...] 05/08/2025 11:30 AM EDT Office Visit Cardiology, [facility] [address] [place] [address] [address], [address] [place] [address] Scheduled Orders Name Type Priority Associated Diagnoses [...] D LEVEL ONCE IN A LIFETIME-USE SMARTSET# [id number] Completed 09/05/2024, 01/28/2021, 06/20/2017, Additional history exists [...] this encounter Medical Devices Implanted Type Area Drop Clipper Device Identifier Shelf Expiration Date Model / Serial / Lot Envista Toric [id number] Se +22.0 Cyl 2.00 Implanted:Qty: 1 on 11/11/2020 by Pk Chapa MD at OR [facility] Left: Eye 04/23/2021 [id number] / [id number] / [id number] Toric 200 21.5 Implanted:Qty: 1 on 11/23/2020 by Pk Chapa MD at OR [facility] Right: Eye 06/23/2021 [id number] / [id number] / documented as of this encounter Results [...] weeks COMPARISON XR CHEST 2 VIEWS, ACC: [id number], dated 2021-12-30 13:04:48 TECHNIQUE 2 views consisting [...] weeks COMPARISON XR CHEST 2 VIEWS, ACC: [id number], dated 2021-12-30 13:04:48 TECHNIQUE 2 views consisting of PA and lateral projections FINDINGS Lungs hyperinflated suggestive of COPD. Lungs and pleural spaces areclear. Pulmonary vasculature is not engorged. Cardiomediastinalsilhouette is normal. IMPRESSION IMPRESSION No acute cardiopulmonary disease. Elbert Keith MD RADIOLOGY (RAD GENERAL) Final Result * FERRITIN (11/19/2024 12:30 PM EST) Pathologist [facility] Ferritin 73 30 - 400 ng/mL 11/19/2024 6:29 PM EST [facility] Blood Venous blood specimen / Unknown Venipuncture / Unknown 11/19/2024 12:30 PM EST 11/19/2024 12:31 PM EST Elbert Keith MD LAB BLOOD ORDERABLES Final Res ult [facility] [address] [place] [address] * (ABNORMAL) CBC (11/19/2024 12:30 PM EST) Pathologist [facility] WBC 2.98(L) 4.00 - 10.80 K/uL 11/19/2024 12:45 PM EST [facility] [place] 56- RBC 3.40 4.50 - 5.25 M/uL 11/19/2024 12:45 PM EST [facility] [place] 56-02 HGB 10.4(L) 14.0 - 16.8 g/dL 11/19/2024 12:45 PM EST [facility] [place] 56-02 HCT 32.0(L) 40.0 - 48.4 % 11/19/2024 12:45 PM EST [facility] [place] 56-02 MCV 94.1 82.0 - 99.5 fL 11/19/2024 12:45 PM EST [facility] [place] 56- MCH 30.6 27.0 - 34.0 pg 11/19/2024 12:45 PM EST [facility] 56 MCHC 32.5 32.0 - 36.0 g/dL 11/19/2024 12:45 PM EST [facility] 56 RDW 14.2 11.5 - 15.5 % 11/19/2024 12:45 PM EST [facility] 56 PLT 140 140 - 400 K/uL 11/19/2024 12:45 PM EST [facility] 56 MPV 11.5 6.6 - 11.1 fL 11/19/2024 12:45 PM EST [facility] 56 Blood Venous blood specimen / Unknown Venipuncture / Unknown 11/19/2024 12:30 PM EST 11/19/2024 12:31 PM EST us Elbert Keith MD LAB BLOOD ORDERABLES Final Res ult [facility] [address] [place] [address] * (ABNORMAL) COMPREHENSIVE METABOLIC PANEL (11/19/2024 12:30 PM EST) BUN 19 6 - 20 mg/dL 11/19/2024 2:30 PM [facility] 56 CREATININE 1.0 0.6 - 1.2 mg/dL 11/19/2024 2:30 PM [facility] 56 EGFR 73 >=60 mL/min 11/19/2024 2:30 PM [facility] 56 Comment:eGFR is calculated b ased on the CKD-EPI 2020 equation. SODIUM 142 135 - 146 mmol/L 11/19/2024 2:30 PM EST [facility] 56 POTASSIUM 4.6 3.5 - 5.1 mmol/L 11/19/2024 2:30 PM [facility] 56 CHLORIDE 104 98 - 107 mmol/L 11/19/2024 2:30 PM [facility] 56 CO2 25 22 - 32 mmol/L 11/19/2024 2:30 PM [facility] 56 ANION GAP 13 7 - 15 mmol/L 11/19/2024 2:30 PM [facility] 56 GLUCOSE 96 70 - 120 mg/dL 11/19/2024 2:30 PM EST [facility] 56- Albumin 4.2 3.8 - 5.0 g/dL 11/19/2024 2:30 PM EST [facility] 56- AST 115(H) 10 - 50 U/L 11/19/2024 2:30 PM EST [facility] 56- Alkaline Phosphatase 90 35 - 130 U/L 11/19/2024 2:30 PM [facility] 56- Bilirubin, Total 0.2 <=1.2 mg/dL 11/19/2024 2:30 PM EST [facility] 56- CALCIUM 9.0 8.4 - 10.2 mg/dL 11/19/2024 2:30 PM [facility] 56- Protein 7.0 6.0 - 8.3 g/dL 11/19/2024 2:30 PM [facility] 56- ALT 98(H) 10 - 50 U/L 11/19/2024 2:30 PM [facility] 56 Blood Venous blood specimen / Unknown Venipuncture / Unknown 11/19/2024 12:30 PM EST 11/19/2024 12:31 PM EST Elbert Keith MD LAB BLOOD ORDERABLES Final Res ult [facility] [address] [place] [address] documented in this encounter Visit Diagnoses Diagnosis Acute bronchitis, antibiotics not indicated- Primary Acute bronchitis SOB (shortness of breath) Shortness of breath Rectal bleeding Hemorrhage of rectum and anus COVID-19 virus infection HTN, goal below 140/90 Unspecified essential hypertension Coronary artery disease involving [place] coronary artery of [place] heart without angina pectoris Age-related osteoporosis without current pathological fracture Senile osteoporosis Dyslipidemia, goal LDL below 70 Other and unspecified hyperlipidemia Benign paroxysmal vertigo of left ear Benign paroxysmal positional vertigo Chronic rhinitis Chronic maxillary sinusitis Abnormal LFTs Other abnormal blood chemistry Acute bronchitis, antibiotics not indicated Acute bronchitis SOB (shortness of breath) Shortness of breath documented in this encounter Care Teams Stem Dryer Maintainer Relationship Specialty Start Date End Date Elbert Keith MD [address] [place] [address] PCP - General Internal Medicine 01/24/24 documented as of this encounter
--- OUTSIDE RECORDS SUMMARY | 2024-11-21 09:26 | External Medical Summary | Summary of Care ---
Author Name Unknown Organization [facility] Address [address] [place] [address] Phone [phone] Care Team Providers Care Straight Knife Cutter Machine Name Role Phone Priya Keith MD Primary Care Provider [phone] Reason for Visit * Reason Onset Date Comments Test Results 11/19/2024 Encounter Details Date Type Department Care Team ([facility] st Contact Info) Description 11/19/2024 Telephone General Internal Medicine [facility] [address] [place] [address] Priya Keith MD [address] [place] [address] Test Results Allergies No known active allergiesdocumented as of this encounter (statuses as of 11/19/2024) Medications Misc Natural Products (OSTEO BI-FLEX ADV TRIPLE ST) [...] anemia 07/17/2023 Coronary artery disease invo lving [place] coronary artery of [place] heart without angina pectoris 01/11/2023 Dyslipidemia, goal [...] mRNA, LNP-s, No Pre serve, 2-Dose Series (Pfizer) 01/07/2021,12/16/2020 Pneumococcal Conjugate Vacc, 13 Valent (Prevnar) [...] PM EDT documented as of this encounter Miscellaneous Notes * Telephone Encounter - Shawna Beauchamp LPN - 11/19/2024 3:30 PM EST Patient advised * Telephone Encounter - Shawna Beauchamp LPN - 11/19/2024 3:30 PM EST ----- Message from Priya Keith MD sent at 11/19/2024 2:54 PM EST ----- CXR normal - no pneumonia . Symptoms from bronchitis from covid . Just sent 5 days of prednisone and take inhaler as directed . Also cough med been sent Labs- worse anemia with drop from 12.7 to 10.4 with active rectal bleeding . 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 Repeat labs in 2 weeks for f/u - ordered Wbc is low form recent covid Abn LFT form taking lot of advil and tylenol . Stop tylenol beside nsaid and also no alcohol if he drinks regularly documented in this encounter Plan of Treatment Upcoming Encounters Date Type Department Care Team (Late st Contact Info) Description 05/08/2025 11:30 AM EDT Office Visit Cardiology, [facility] [address] [place] [address] [place], [address] [place] [address] Scheduled Procedures Name Priority Associated Diagnoses Date/Ti [...] 06/20/2024, Additional history exists Colonoscopy 04/24/2027 04/24/2022, 09/2021, 04/13/2022, Additional history exists DTap/Tdap Vaccines (2 - Td or Tdap) 01/06/2029 01/06/2019, 02/16/2009 Pneumococcal Vaccine: 50+ Years Completed 05/03/2017, 01/06/2009 Zoster Vaccines Completed 06/14/2020, 04/08/2020 RETIRED - COLONOSCOPY-EVERY 5 YRS AGES 18-100 Discontinued 04/24/2022, 04/24/2022, 04/13/2022, Additional history exists Influenza Vaccine (FLU shot) Completed 06/16/2024, 10/26/2023, 07/13/2022, Additional history exists VITAMIN D LEVEL ONCE IN A LIFETIME-USE SMARTSET# [id number] Completed 09/05/2024, 01/28/2021, 06/20/2017, Additional history exists [...] this encounter Medical Devices Implanted Type Area Corrections Lieutenant Device Identifier Shelf Expiration Date Model / Serial / Lot Envista Toric [id number] Se +22.0 Cyl 2.00 Implanted:Qty: 1 on 11/11/2020 by Pk Chapa MD at OR [facility] Left: Eye 04/23/2021 [id number] / [id number] / [id number] Toric 200 21.5 Implanted:Qty: 1 on 11/23/2020 by Pk Chapa MD at OR [facility] Right: Eye 06/23/2021 [id number] / [id number] / documented as of this encounter Care Teams Straight Knife Cutter Machine Relationship Specialty Start Date End Date Priya Keith MD [address] [facility] [place], [place] [address] PCP - General Internal Medicine 01/24/24 documented as of this encounter
--- OUTSIDE RECORDS SUMMARY | 2024-11-21 09:27 | External Medical Summary | Summary of Care ---
Author Name Unknown Organization [facility] Address [address] [place] [address] Phone [phone] Care Team Providers Care Powder Compounder Name Role Phone Elbert Keith MD Primary Care Provider [phone] Reason for Visit * Reason Comments Follow Up Tight feeling around left eye and left ear - states he never took the prescribed gabapentin - states he also feels pressure in his left ear Encounter Details Date Type Department Care Team (Latest Contact Info) Description 09/05/2024 2:00 PM EST Office Visit General Internal Medicine [facility] [address] [facility] [place], [place] [id number] Elbert Keith MD [address] [place] [address] HTN, goal below 140/90*; Rosacea; PND (post-nasal drip); Mitral valve prolapse; TMJ (sprain of temporomandibular joint), sequela; Nonrheumatic mitral valve regurgitation; History of tobacco use; History of lower GI bleeding; History of anemia; Gastro-esophageal reflux disease without esophagitis; Age-related osteoporosis without current pathological fracture; Dyslipidemia, goal LDL below 70; Coronary artery disease involving catawba coronary artery of catawba heart without angina pectoris; Chronic rhinitis; Chronic maxillary sinusitis; Degeneration of cervical intervertebral disc; Benign paroxysmal vertigo of left ear; High risk for fracture due to osteoporosis by DEXA scan; Vestibular active Meniere's disease, unspecified laterality; Pure hypercholesterolemia; Statin intolerance; Vascular ectasia of colon; Umbilical hernia without obstruction and without gangrene; Anemia, unspecified type; HTN, goal below 150/90; Iron deficiency anemia, unspecified iron deficiency anemia type Allergies No known active allergiesdocumented as of this encounter (statuses as of 09/06/2024) Medications Misc Natural Products (OSTEO BI-FLEX ADV [...] mouth in the morning. 90 Tablet 3 08/18/2024 10:29 AM EST 4 Active Doxycycline Hyclate 100 MG Oral CapsuleIndicati ons:Rosacea Take 1 Capsule by mouth in the morning. 4 Active Fluticasone Propionate 50 MCG/ACT Nasal Suspension (Flonase)Indica tions:PND (post-nasal drip) Administer 2 Sprays into each nostril at bedtime. 4 Active documented as of this encounter (statuses as of 09/06/2024) Active Problems Problem Noted Date Diagnosed Date Right inguinal hernia 06/20/2024 Umbilical hernia without obstruction and without gangrene 06/20/2024 Benign paroxysmal vertigo of left ear 07/17/2023 History of lower GI bleeding 07/17/2023 Vascular ectasia of colon 07/17/2023 History of anemia 07/17/2023 Coronary artery disease invo lving catawba coronary artery of catawba heart without angina pectoris 01/11/2023 Dyslipidemia, goal [...] as of this encounter (statuses as of 09/06/2024) Resolved Problems Problem Noted Date Diagnosed Date [...] as of this encounter (statuses as of 09/06/2024) Immunizations Name Administration Dates Next Due COVID-19 mRNA, LNP-s, No Pre serve, 2-Dose Series ([employer]) 01/07/2021,12/16/2020 Pneumococcal Conjugate Vacc, 13 Valent (Prevnar) [...] 0 [birth year]/05/1955 - 05/05/1972 Smokeless Tobacco: Never Tobacco Cessation:Counseling Given: Not Answered Alcohol Use Standard Drinks/Week Comments Yes 0 [...] Sign Reading Time Taken Comments Blood Pressure 140/52 09/05/2024 2:12 PM EST Pulse 60 09/05/2024 2:12 PM EST Temperature 36.7 C (98 F) 09/05/2024 2:12 PM EST Respiratory Rate 20 09/05/2024 2:12 PM EST Oxygen Saturation - - Inhaled Oxygen Concentration - - Weight 69.8 kg (153 lb 12.8 oz) 09/05/2024 2:12 PM EST Height - - Body Mass Index 22.39 01/24/2024 1:09 PM EDT documented in this encounter Progress Notes * Elbert Keith MD - 09/05/2024 2:24 PM EST Images from the original note were not included. History of Present Illness Vaibhav Magaña is a 84 year old male that presents for Follow Up (Tight feeling around left eye andleft ear - states he never took the prescribed gabapentin - states he also feels pressure in his left ear) 84 year oldYOmale with PMH significant for hypertension, hyperlipidemia, GERD, history of Meniere'sdisease, hearing loss, cervical DDD presents here for recheck. Acute concern :- -Tight feeling around left eye and left ear - states he never took the prescribed gabapentin - states he also feels pressure in his left ear. Still has gabapentin -has h/o OP was on fosamax then injectable and doesn't want to do test nor take meds now -BP a bit higher after lowering amlodipine but swelling gone Interimmedical history : seen by Dr Lee for hernia and need to postpone due to not having cards appoint later Watching diet and exercise : yes Routine labs : due Routine HM : declines covid booster and dexa Chronic medical problem: reviewed and stable Physical Exam Vitals: 09/05/24 1412 Temp: 98 F (36.7 C) Pulse: 60 Resp: 20 BP: 140/52 Physical Exam Vitals and nursing note reviewed. Constitutional: General: He is not in acute distress. Appearance: He is normal weight. HENT: Head: Normocephalic. Comments: Tenderness in left gnosticist and TMJ Right Ear: There is no impacted cerumen. Left Ear: There is no impacted cerumen. Cardiovascular: Rate and Rhythm: Normal rate and regular rhythm. Pulmonary: Effort: Pulmonary effort is normal. No respiratory distress. Breath sounds: No wheezing. Abdominal: General: Bowel sounds are normal. There is no distension. Palpations: Abdomen is soft. There is no mass. Musculoskeletal: General: No swelling or signs of injury. Cervical back: Neck supple. Tenderness present. No rigidity. Skin: General: Skin is warm. Findings: No lesion or rash. Neurological: Mental Status: He is alert. I have reviewed the following results: CPM and cbc Assessment and Plan HTN, goal below 140/90 Cont amlodipine with goal of BP to < 150/90 - COMPREHENSIVE METABOLIC PANEL; Future Rosacea Stable Continue current treatment as directed PND (post-nasal drip) Trial of flonase Mitral valve prolapse TMJ (sprain of temporomandibular joint), sequela Gabapentin as directed Nonrheumatic mitral valve regurgitation History of tobacco use History of lower GI bleeding History of anemia Gastro-esophageal reflux disease without esophagitis Age-related osteoporosis without current pathological fracture - 25-HYDROXY VITAMIN D; Future Dyslipidemia, goal LDL below 70 Coronary artery disease involving catawba coronary artery of catawba heart without angina pectoris Stable Continue current treatment as directed Chronic rhinitis Flonae Chronic maxillary sinusitis Degeneration of cervical intervertebral disc Benign paroxysmal vertigo of left ear High risk for fracture due to osteoporosis by DEXA scan Vestibular active Meniere's disease, unspecified laterality Pure hypercholesterolemia Statin intolerance Declines Vascular ectasia of colon Umbilical hernia without obstruction and without gangrene Anemia, unspecified type - CBC WITH WBC DIFFERENTIAL AND ANEMIA REFLEX WORKUP; Future Wrap-Up Time: I spent a total of 30-39 minutes (exact time 32 mins) on the date of service in preparation, delivery, and documentation of the care provided to Vaibhav Magaña excluding any time spent in the performance of separately billed services. documented in this encounter Nursing Notes * Enrike Lara RN - 09/05/2024 2:14 PM EST Chief Complaint Patient presents with Follow Up Tight feeling around left eye and left ear - states he never took the prescribed gabapentin - states he also feels pressure in his left ear documented in this encounter Miscellaneous Notes * Addendum Note - Elbert Keith MD - 09/06/2024 8:51 AM ESTAddended by: ELBERT KEITH on: 09/06/2024 08:51 AM Modules accepted: Orders documented in this encounter Plan of Treatment Upcoming Encounters Date Type Department Care Team (Late st Contact Info) Description 12/05/2024 9:45 AM EDT Office Visit General Surgery, [facility] [address] [phone] Ole Lee MD [address] [address] 01/01/2025 8:30 AM EDT Office Visit Cardiology, [facility] [address] [place] [address] Shruti Friedman PA-C [address] [place] [address] Scheduled Orders Name Type Priority Associated Diagnoses Orde r Schedule CBC Lab Routine Iron deficiency anemia, unspecified iron deficiency anemia type Expected: 03/07/2025, Expires: 09/06/2025 IRON SCREEN, INCLUDING TIBC Lab Routine Iron deficiency anemia, unspecified iron deficiency anemia type Expected: 03/07/2025, Expires: 09/06/2025 FERRITIN Lab Routine Iron deficiency anemia, unspecified iron deficiency anemia type Expected: 03/07/2025, Expires: 09/06/2025 Scheduled Procedures Name Priority Associated Diagnoses Date/Ti [...] 10/26/2024 10/26/2023 Albumin/Creatinine Ratio 01/11/2025 01/11/2022 GFR 09/05/2025 09/05/2024, 05/26, 09/10/2023, Additional history exists Colonoscopy 04/24/2027 04/24/2022, 0809/2021, 04/13/2022, Additional history exists DTap/Tdap Vaccines (2 - Td or Tdap) 01/06/2029 01/06/2019, 02/16/2009 Pneumococcal Vaccine: 65+ Years Completed 05/03/2017, 01/06/2009 Zoster Vaccines Completed 06/14/2020, 04/08/2020 RETIRED - COLONOSCOPY-EVERY 5 YRS AGES 18-100 Discontinued 04/24/2022, 04/24/2022, 04/13/2022, Additional history exists Influenza Vaccine (FLU shot) Completed 06/16/2024, 10/26/2023, 07/13/2022, Additional history exists VITAMIN D LEVEL ONCE IN A LIFETIME-USE SMARTSET# [id number] Completed 09/05/2024, 01/28/2021, 06/20/2017, Additional history exists [...] this encounter Medical Devices Implanted Type Area Creative Services Coordinator Device Identifier Shelf Expiration Date Model / Serial / Lot Envista Toric [id number] Se +22.0 Cyl 2.00 Implanted:Qty: 1 on 11/11/2020 by Pk Chapa MD at OR [facility] Left: Eye 04/23/2021 [id number] / [id number] / [id number] Toric 200 21.5 Implanted:Qty: 1 on 11/23/2020 by Pk Chapa MD at OR [facility] Right: Eye 06/23/2021 [id number] / [id number] / documented as of this encounter Results * 25-HYDROXY VITAMIN D (09/05/2024 2:49 PM EST) 25-Hydroxy Vitamin D 37 >19 ng/mL 09/05/2024 11:10 PM EST [facility] [place] Venous blood specimen / Unknown Venipuncture / Unknown 09/05/2024 2:49 PM EST 09/05/2024 2:49 PM EST Narrative [facility] - 09/05/2024 11:10 PM EST Deficient: <20 ng/mL Insufficient: 20-29 ng/mL Recommended/Optimum:30-50 ng/mL Vitamin D intoxication is rare. If suspicious of Vitamin D toxicity, evaluation of serum Calcium and PTH is recommended. us Elbert Keith MD LAB BLOOD ORDERABLES Final Res ult [facility] [address] [place] [address] * COMPREHENSIVE METABOLIC PANEL (09/05/2024 2:49 PM EST) BUN 16 6 - 20 mg/dL 09/05/2024 4:03 PM [facility] 56 CREATININE 1.0 0.6 - 1.2 mg/dL 09/05/2024 4:03 PM [facility] 56 EGFR 76 >=60 mL/min 09/05/2024 4:03 PM [facility] 56 Comment:eGFR is calculated b ased on the CKD-EPI 2020 equation. SODIUM 141 135 - 146 mmol/L 09/05/2024 4:03 PM [facility] 56 POTASSIUM 4.7 3.5 - 5.1 mmol/L 09/05/2024 4:03 PM [facility] 56 CHLORIDE 104 98 - 107 mmol/L 09/05/2024 4:03 PM [facility] 56 CO2 25 22 - 32 mmol/L 09/05/2024 4:03 PM [facility] 56 ANION GAP 12 7 - 15 mmol/L 09/05/2024 4:03 PM [facility] 56 GLUCOSE 97 70 - 120 mg/dL 09/05/2024 4:03 PM [facility] 56 Albumin 4.5 3.8 - 5.0 g/dL 09/05/2024 4:03 PM [facility] 56 AST 33 10 - 50 U/L 09/05/2024 4:03 PM [facility] 56 Alkaline Phosphatase 77 35 - 130 U/L 09/05/2024 4:03 PM [facility] 56 Bilirubin, Total 0.2 <=1.2 mg/dL 09/05/2024 4:03 PM [facility] 56 CALCIUM 9.7 8.4 - 10.2 mg/dL 09/05/2024 4:03 PM [facility] 56 Protein 7.5 6.0 - 8.3 g/dL 09/05/2024 4:03 PM [facility] 56- ALT 35 10 - 50 U/L 09/05/2024 4:03 PM [facility] Blood Venous blood specimen / Unknown Venipuncture / Unknown 09/05/2024 2:49 PM EST 09/05/2024 2:49 PM EST Elbert Keith MD LAB BLOOD ORDERABLES Final Res ult [facility] [address] [facility] [address] documented in this encounter Visit Diagnoses Diagnosis HTN, goal below 140/90- Primary Unspecified essential hypertension Rosacea PND (post-nasal drip) Postnasal drip Mitral valve prolapse Mitral valve disorders TMJ (sprain of temporomandibular joint), sequela Nonrheumatic mitral valve regurgitation History of tobacco use Personal history of tobacco use, presenting hazards to health History of lower GI bleeding Personal history of other diseases of digestive system History of anemia Personal history of diseases of blood and blood-forming organs Gastro-esophageal reflux disease without esophagitis Esophageal reflux Age-related osteoporosis without current pathological fracture Senile osteoporosis Dyslipidemia, goal LDL below 70 Other and unspecified hyperlipidemia Coronary artery disease involving catawba coronary artery of catawba heart without angina pectoris Chronic rhinitis Chronic maxillary sinusitis Degeneration of cervical intervertebral disc Benign paroxysmal vertigo of left ear Benign paroxysmal positional vertigo High risk for fracture due to osteoporosis by DEXA scan Osteoporosis, unspecified Vestibular active Meniere's disease, unspecified laterality Pure hypercholesterolemia Statin intolerance Other drug allergy Vascular ectasia of colon Other specified disorder of intestines Umbilical hernia without obstruction and without gangrene Anemia, unspecified type HTN, goal below 150/90 Iron deficiency anemia, unspecified iron deficiency anemia type documented in this encounter Care Teams Powder Compounder Relationship Specialty Start Date End Date Elbert Keith [facility] [address] [facility] [address] PCP - General Internal Medicine 01/24/24 documented as of this encounter
--- OUTSIDE RECORDS SUMMARY | 2024-11-21 09:27 | External Medical Summary | Summary of Care ---
Author Name Unknown Organization [facility] Address [address] [place] [address] Phone [phone] Care Team Providers Care Status Controller Name Role Phone Priya Keith MD Primary Care Provider [phone] Reason for Visit * Reason Comments Outpatient Testing Encounter Details Date Type Department Care Team (Late st Contact Info) Description 11/19/2024 12:40 PM EST Laboratory Laboratory [facility] [address] [place] [id number] [facility] [address] [place] [address] Rectal bleeding Allergies No known active allergiesdocumented as of [...] Each 11/19/2024 2:18 PM EST 5 Active documented as of this encounter (statuses as of 11/19/2024) Active Problems Problem Noted Date Diagnosed Date Right inguinal hernia 06/20/2024 Umbilical hernia without obstruction and without gangrene 06/20/2024 Benign paroxysmal vertigo of left ear 07/17/2023 History of lower GI bleeding 07/17/2023 Vascular ectasia of colon 07/17/2023 History of anemia 07/17/2023 Coronary artery disease invo lving rosebud coronary artery of rosebud heart without angina pectoris 01/11/2023 Dyslipidemia, goal [...] right pinna 01/06/20192018 HTN, goal below 140/90 09/04/2012 04/21 /2014 Blanchard's esophageal ulceration 08/18/2012 01/12/2014 Vertebral fracture, [...] PM EDT documented as of this encounter Plan of Treatment Upcoming Encounters Date Type Department Care Team (Late st Contact Info) Description 05/08/2025 11:30 AM EDT Office Visit Cardiology, [facility] [address] [place] [address] Vaibhav Earl, [address] [address] Pending Results Name Type Priority Associated Diagnoses Date /Time FERRITIN Lab Routine Rectal bleeding 11/19/2024 12:30 PM EST Scheduled Procedures Name Priority Associated Diagnoses Date/Ti [...] 06/20/2024, Additional history exists Colonoscopy 04/24/2027 04/24/2022, 08/0 09/2021, 04/13/2022, Additional history exists DTap/Tdap Vaccines (2 - Td or Tdap) 01/06/2029 01/06/2019, 02/16/2009 Pneumococcal Vaccine: 50+ Years Completed 05/03/2017, 01/06/2009 Zoster Vaccines Completed 06/14/2020, 04/08/2020 RETIRED - COLONOSCOPY-EVERY 5 YRS AGES 18-100 Discontinued 04/24/2022, 04/24/2022, 04/13/2022, Additional history exists Influenza Vaccine (FLU shot) Completed 06/16/2024, 10/26/2023, 07/13/2022, Additional history exists VITAMIN D LEVEL ONCE IN A LIFETIME-USE SMARTSET# [id number] Completed 09/05/2024, 01/28/2021, 06/20/2017, Additional history exists [...] this encounter Medical Devices Implanted Type Area Industrial Boilermaker Device Identifier Shelf Expiration Date Model / Serial / Lot Envista Toric [id number] Se +22.0 Cyl 2.00 Implanted:Qty: 1 on 11/11/2020 by Pk Chapa MD at OR [facility] Left: Eye 04/23/2021 [id number] / [id number] / [id number] Toric 200 21.5 Implanted:Qty: 1 on 11/23/2020 by Pk Chapa MD at OR [facility] Right: Eye 06/23/2021 [id number] / [id number] / documented as of this encounter Procedures Procedure Name Priority Date/Time Associated Diagnosis Comments COMPREHENSIVE METABOLIC PANEL Routine 11/19/2024 12:30 PM EST Rectal bleeding CBC Routine 11/19/2024 12:30 PM EST Rectal bleeding documented in this encounter Results * (ABNORMAL) CBC (11/19/2024 12:30 PM EST) [facility] WBC 2.98(L) 4.00 - 10.80 K/uL 11/19/2024 12:45 PM EST [facility] 56- RBC 3.40 4.50 - 5.25 M/uL 11/19/2024 12:45 PM EST [facility] 56-02 HGB 10.4(L) 14.0 - 16.8 g/dL 11/19/2024 12:45 PM EST [facility] 56- HCT 32.0(L) 40.0 - 48.4 % 11/19/2024 12:45 PM EST [facility] 56- MCV 94.1 82.0 - 99.5 fL 11/19/2024 12:45 PM EST [facility] 56- MCH 30.6 27.0 - 34.0 pg 11/19/2024 12:45 PM EST [facility] 56-02 MCHC 32.5 32.0 - 36.0 g/dL 11/19/2024 12:45 PM EST [facility] 56-02 RDW 14.2 11.5 - 15.5 % 11/19/2024 12:45 PM EST [facility] 56-02 PLT 140 140 - 400 K/uL 11/19/2024 12:45 PM EST [facility] 56-02 MPV 11.5 6.6 - 11.1 fL 11/19/2024 12:45 PM EST [facility] 56-02 Blood Venous blood specimen / Unknown Venipuncture / Unknown 11/19/2024 12:30 PM EST 11/19/2024 12:31 PM EST us Priya Keith MD LAB BLOOD ORDERABLES Final Res ult [facility] [address]- [address] [place] [address] * (ABNORMAL) COMPREHENSIVE METABOLIC PANEL (11/19/2024 12:30 PM EST) [facility] BUN 19 6 - 20 mg/dL 11/19/2024 2:30 PM [facility] 56 CREATININE 1.0 0.6 - 1.2 mg/dL 11/19/2024 2:30 PM [facility] 56 EGFR 73 >=60 mL/min 11/19/2024 2:30 PM [facility] 56 Comment:eGFR is calculated b ased on the CKD-EPI 2020 equation. SODIUM 142 135 - 146 mmol/L 11/19/2024 2:30 PM [facility] 56 POTASSIUM 4.6 3.5 - 5.1 mmol/L 11/19/2024 2:30 PM [facility] 56 CHLORIDE 104 98 - 107 mmol/L 11/19/2024 2:30 PM [facility] 56 CO2 25 22 - 32 mmol/L 11/19/2024 2:30 PM [facility] 56 ANION GAP 13 7 - 15 mmol/L 11/19/2024 2:30 PM [facility] 56 GLUCOSE 96 70 - 120 mg/dL 11/19/2024 2:30 PM [facility] 56 Albumin 4.2 3.8 - 5.0 g/dL 11/19/2024 2:30 PM [facility] 56 AST 115(H) 10 - 50 U/L 11/19/2024 2:30 PM [facility] 56 Alkaline Phosphatase 90 35 - 130 U/L 11/19/2024 2:30 PM [facility] 56 Bilirubin, Total 0.2 <=1.2 mg/dL 11/19/2024 2:30 PM [facility] 56 CALCIUM 9.0 8.4 - 10.2 mg/dL 11/19/2024 2:30 PM [facility] 56 Protein 7.0 6.0 - 8.3 g/dL 11/19/2024 2:30 PM [facility] 56 ALT 98(H) 10 - 50 U/L 11/19/2024 2:30 PM [facility] 56 Blood Venous blood specimen / Unknown Venipuncture / Unknown 11/19/2024 12:30 PM EST 11/19/2024 12:31 PM EST Priya Keith MD LAB BLOOD ORDERABLES Final Res ult [facility] [address] [facility] [address] documented in this encounter Visit Diagnoses Diagnosis Rectal bleeding Hemorrhage of rectum and anus documented in this encounter Care Teams Status Controller Relationship Specialty Start Date End Date [facility] Keith [facility] [address] [facility] [address] PCP - General Internal Medicine 01/24/24 documented as of this encounter
--- OUTSIDE RECORDS SUMMARY | 2024-11-21 09:27 | External Medical Summary ---
Author Name Unknown Address Unknown Organization K09[facility] [place] [address] Laboratory Report Ordering Provider Test Date Status DEEPTHI BOSWELL 11/19/2024 12:30:44 Final Observation Date Value Abnormality Reference (Units ) Status WBC, Total 11/19/2024 12:30:44 2.98 Below low normal 4. 00-10.80 (K/uL) Final RBC 11/19/2024 12:30:44 3.40 4.50-5.25 (M/uL) Final Hemoglobin 11/19/2024 12:30:44 10.4 Below low normal 14 .0-16.8 (g/dL) Final HCT 11/19/2024 12:30:44 32.0 Below low normal 40. 0-48.4 (%) Final MCV 11/19/2024 12:30:44 94.1 82.0-99.5 (fL) Final MCH 11/19/2024 12:30:44 30.6 27.0-34.0 (pg) Final MCHC 11/19/2024 12:30:44 32.5 32.0-36.0 (g/dL) Final RDW 11/19/2024 12:30:44 14.2 11.5-15.5 (%) Final Platelets 11/19/2024 12:30:44 140 140-400 (K /uL) Final MPV 11/19/2024 12:30:44 11.5 6.6-11.1 ( fL) Final Performing Location [facility] [place] [address]
--- OUTSIDE RECORDS SUMMARY | 2024-11-21 09:27 | External Medical Summary ---
Author Name Unknown Address Unknown Organization K09:[facility] [address] [place] [address] Laboratory Report Ordering Provider Test Date Status DEEPTHI BOSWELL 11/19/2024 12:30:44 Final Observation Date Value Abnormality Reference (Units ) Status BUN 11/19/2024 12:30:44 19 6-20 (mg/dL) Final Creatinine 11/19/2024 12:30:44 1.0 0.6-1.2 (mg/dL) Final Glomerular filtration rate/1.73 sq M.predicted [Volume Rate/Area] in Serum, Plasma or Blood by Creatinine-based formula (CKD-EPI) 11/19/2024 12:30:44 73 >=60 (mL/min) Final eGFR is calculated based on the CKD-EPI 2020 equation. Sodium 11/19/2024 12:30:44 142 135-146 (m mol/L) Final Potassium 11/19/2024 12:30:44 4.6 3.5-5.1 (m mol/L) Final Cl 11/19/2024 12:30:44 104 98-107 (mm ol/L) Final CO2 11/19/2024 12:30:44 25 22-32 (mmo l/L) Final Anion gap 11/19/2024 12:30:44 13 7-15 (mmol /L) Final Glucose 11/19/2024 12:30:44 96 70-120 (mg /dL) Final Albumin 11/19/2024 12:30:44 4.2 3.8-5.0 (g /dL) Final AST (Aspartate aminotransferase) 11/19/2024 12:30:44 115 Above high normal 10-50 (U/L) Final Alk Phos 11/19/2024 12:30:44 90 35-130 (U/ L) Final Bilirubin, Total 11/19/2024 12:30:44 0.2 <=1 .2 (mg/dL) Final Calcium 11/19/2024 12:30:44 9.0 8.4-10.2 ( mg/dL) Final Protein 11/19/2024 12:30:44 7.0 6.0-8.3 (g /dL) Final ALT (Alanine aminotransferase) 11/19/2024 12:30:44 98 Above high normal 10-50 (U/L) Final Performing Location [facility] [address] [place] [address]
--- OUTSIDE RECORDS SUMMARY | 2024-11-21 09:27 | External Medical Summary | Summary of Care ---
Author Name Unknown Organization [facility] Address [address] [place] [address] Phone [phone] Care Team Providers Care Electrical Accessories I Assembler Name Role Phone Priya Keith MD Primary Care Provider [phone] Encounter Details Date Type Department Care Team (Late st Contact Info) Description 10/15/2024 Population Health External Data Unspecified Department Allergies No known active allergiesdocumented as of this encounter (statuses as of 10/15/2024) Medications Misc Natural Products (OSTEO BI-FLEX ADV [...] as of this encounter (statuses as of 10/15/2024) Active Problems Problem Noted Date Diagnosed Date Right inguinal hernia 06/20/2024 Umbilical hernia without obstruction and without gangrene 06/20/2024 Benign paroxysmal vertigo of left ear 07/17/2023 History of lower GI bleeding 07/17/2023 Vascular ectasia of colon 07/17/2023 History of anemia 07/17/2023 Coronary artery disease invo lving [place] coronary artery of [place] heart without angina pectoris 01/11/2023 Dyslipidemia, goal [...] as of this encounter (statuses as of 10/15/2024) Resolved Problems Problem Noted Date Diagnosed Date [...] as of this encounter (statuses as of 10/15/2024) Immunizations Name Administration Dates Next Due COVID-19 [...] 9:45 AM EDT Office Visit General Surgery, [facility] [address] [place] [address] Ole Lee MD [address] [place] [address] 01/01/2025 8:30 AM EDT Office Visit Cardiology, [facility] [address] [place] [address] Shruti Friedman PA-C [address] [place] [address] Scheduled Procedures Name Priority Associated Diagnoses Date/Ti [...] D LEVEL ONCE IN A LIFETIME-USE SMARTSET# [id number] Completed 09/05/2024, 01/28/2021, 06/20/2017, Additional history exists [...] this encounter Medical Devices Implanted Type Area Balloon Maker Device Identifier Shelf Expiration Date Model / Serial / Lot Envista Toric Mx60t Se +22.0 Cyl 2.00 Implanted:Qty: 1 on 11/11/2020 by Pk Chapa MD at OR [facility] Left: Eye 04/23/2021 [id number] / [id number] / [id number] Toric 200 21.5 Implanted:Qty: 1 on 11/23/2020 by Pk Chapa MD at OR [facility] Right: Eye 06/23/2021 [id number] / [id number] / documented as of this encounter Care Teams Electrical Accessories I Assembler Relationship Specialty Start Date End Date Priya Keith MD [address] [facility] [place], [place] [address] PCP - General Internal Medicine 01/24/24 documented as of this encounter
--- OUTSIDE RECORDS SUMMARY | 2024-11-21 09:27 | External Medical Summary | Summary of Care ---
Author Name Unknown Organization [facility] Address [address] [place] [address] Phone [phone] Care Team Providers Care Recycling Assistant Name Role Phone Priya Keith MD Primary Care Provider [phone] Reason for Visit * Reason Onset Date Comments Med Change Request 10/10/2024 Encounter Details Date Type Department Care Team ([facility] st Contact Info) Description 10/10/2024 Telephone General Internal Medicine [facility] [address] [place] [address] Priya Keith MD [address] [place] [address] Med Change Request Allergies No known active allergiesdocumented as of this encounter (statuses as of 10/14/2024) Medications Misc Natural Products (OSTEO BI-FLEX ADV [...] as of this encounter (statuses as of 10/14/2024) Active Problems Problem Noted Date Diagnosed Date Right inguinal hernia 06/20/2024 Umbilical hernia without obstruction and without gangrene 06/20/2024 Benign paroxysmal vertigo of left ear 07/17/2023 History of lower GI bleeding 07/17/2023 Vascular ectasia of colon 07/17/2023 History of anemia 07/17/2023 Coronary artery disease invo lving [place] coronary artery of [place] heart without angina pectoris 01/11/2023 Dyslipidemia, goal [...] as of this encounter (statuses as of 10/14/2024) Resolved Problems Problem Noted Date Diagnosed Date [...] as of this encounter (statuses as of 10/14/2024) Immunizations Name Administration Dates Next Due COVID-19 [...] Frequency of Alcohol Consumption 2-4 times a mon 07/01/2020 Average Number of Drinks 1 or 2 [...] encounter Miscellaneous Notes * Telephone Encounter - Kristina Hansne CMA - 10/14/2024 9:52 AM EST MyG sent * Telephone Encounter - Priya Keiht MD - 10/13/2024 11:09 AM EST Pt called on 17 morning but I just got this and should have been sent to my nursing or me on Sun - please apologize to pt on my behalf Now it seems like it's been more than 5 days and Paxlovid won't be any helpful . Check how is he feeling ? If SOB and bad cough suggest acute visit but if getting better no intervention needed exceptOTC meds * Telephone Encounter - Emperatriz Rubin OSA - 10/10/2024 10:31 AM EST Patient calling saying he is having similar symptoms to his who is positive for covid and getting meds today from pharmacy Pt did not do a covid test See call details documented in this encounter Plan of Treatment Upcoming Encounters Date Type Department Care Team (Late st Contact Info) Description 12/05/2024 9:45 AM EDT Office Visit General Surgery, [facility] [address] [place] [address] Ole Lee MD [address] [place] [address] 01/01/2025 8:30 AM EDT Office Visit Cardiology, [facility] [address] [place] [address] Shruti Friedman PA-C [address] [place] [address] Scheduled Procedures Name Priority Associated Diagnoses Date/Ti [...] 09/10/2023, Additional history exists Colonoscopy 04/24/2027 04/24/2022, 09/2021, [...] D LEVEL ONCE IN A LIFETIME-USE SMARTSET# [id number] Completed 09/05/2024, 01/28/2021, 06/20/2017, Additional history exists [...] this encounter Medical Devices Implanted Type Area Item Repair Manager Device Identifier Shelf Expiration Date Model / Serial / Lot Envista Toric Mx60t Se +22.0 Cyl 2.00 Implanted:Qty: 1 on 11/11/2020 by Pk Chapa MD at OR [facility] Left: Eye 04/23/2021 [id number] / [id number] / [id number] Toric 200 21.5 Implanted:Qty: 1 on 11/23/2020 by Pk Chapa MD at OR [facility] Right: Eye 06/23/2021 [id number] / [id number] / documented as of this encounter Care Teams Recycling Assistant Relationship Specialty Start Date End Date Priya Keith MD [address] [place] [address] PCP - General Internal Medicine 01/24/24 documented as of this encounter
--- OUTSIDE RECORDS SUMMARY | 2024-11-21 09:27 | External Medical Summary | Summary of Care ---
Author Name Unknown Organization [facility] Address [address] [place] [address] Phone [phone] Care Team Providers Care Student Admissions Clerk Name Role Phone Priya Keith MD Primary Care Provider [phone] Reason for Visit * Reason Onset Date Comments Pre-op Clearance 07/17/2024 Encounter Details Date Type Department Care Team (Late st Contact Info) Description 07/17/2024 Telephone Cardiology, [facility] [address] [place] [address] Shruti Friedman PA-C [address] [facility] [place] [address] Pre-op Clearance Allergies No known active allergiesdocumented as of this encounter (statuses as of 10/16/2024) Medications [facility] Natural Products (OSTEO BI-FLEX ADV TRIPLE ST) Tablet Take by mouth 1 Tablet daily . Active Aspirin EC 81 MG Oral Tablet Delayed Release Take by mouth 1 Tablet in the morning. 05/03/2022 Active Fish Oil 1000 MG Oral Capsule Take 1 Capsule by mouth in the morning. Active amLODIPine Besylate 5 MG Oral Tablet (Norvasc) Take 1 Tablet by mouth in the morning. 90 Tablet 3 08/18/2024 10:29 AM EST 02/20/2024 Active documented as of this encounter (statuses as of 10/16/2024) Active Problems Problem Noted Date Diagnosed Date Right inguinal hernia 06/20/2024 Umbilical hernia without obstruction and without gangrene 06/20/2024 Benign paroxysmal vertigo of left ear 07/17/2023 History of lower GI bleeding 07/17/2023 Vascular ectasia of colon 07/17/2023 History of anemia 07/17/2023 Coronary artery disease invo lving [place] coronary artery of [place] heart without angina pectoris 01/11/2023 Dyslipidemia, goal [...] as of this encounter (statuses as of 10/16/2024) Resolved Problems Problem Noted Date Diagnosed Date [...] as of this encounter (statuses as of 10/16/2024) Immunizations Name Administration Dates Next Due COVID-19 [...] encounter Miscellaneous Notes * Telephone Encounter - Lucho Salas OSA - 07/17/2024 9:28 AM EDT Patient will have to postpone the procedure. He does have an appt already scheduled, I do not have any sooner appts for four days before the procedure. Patient is scheduled on: 08/15/2024 Status: Rich Time: 2:00 PM Length: 30 Visit Type: RETURN CARDIOLOGY [38014] Reg Status: Verified Copay: $20.00 Provider: Shruti Friedman PA-C Department: CARDIOLOGY [facility] Additional Resources Requested: Appt Phone: * Telephone Encounter - Daniel Najera LPN - 07/17/2024 9:19 AM EDT Patient is scheduled for Laparoscopic Right Inguinal Hernia repair with Mesh and Laparoscopic Umbilical Hernia repair with Dr. Ole Hung at [facility] on 07/21/24. Patient needs a pre-op clearance appointment per Shruti Friedman PA-C. Scheduling please assist. documented in this encounter Plan of Treatment Upcoming Encounters Date Type Department Care Team (Late st Contact Info) Description 12/05/2024 9:45 AM EDT Office Visit General Surgery, [facility] [address] [place] [address] Ole Lee MD [address] [place] [address] 01/01/2025 8:30 AM EDT Office Visit Cardiology, [facility] [address] [place] [address] Shruti Friedman PA-C [address] [place] [address] Scheduled Procedures Name Priority Associated Diagnoses Date/Ti [...] D LEVEL ONCE IN A LIFETIME-USE SMARTSET# [id number] Completed 09/05/2024, 01/28/2021, 06/20/2017, Additional history exists [...] this encounter Medical Devices Implanted Type Area Coating Engineer Device Identifier Shelf Expiration Date Model / Serial / Lot Dave Infante Mx60t Se +22.0 Cyl 2.00 Implanted:Qty: 1 on 11/11/2020 by Pk Chapa MD at OR [facility] Left: Eye 04/23/2021 [id number] / [id number] / [id number] Toric 200 21.5 Implanted:Qty: 1 on 11/23/2020 by Pk Chapa MD at OR [facility] Right: Eye 06/23/2021 [id number] / [id number] / documented as of this encounter Care Teams Student Admissions Clerk Relationship Specialty Start Date End Date Priya Keith MD [address] [place] [address] PCP - General Internal Medicine 01/24/24 documented as of this encounter
--- OUTSIDE RECORDS SUMMARY | 2024-11-21 09:27 | External Medical Summary ---
Author Name Unknown Address Unknown Organization [id number]:[facility] [place] [address] [place] [address] Laboratory Report Ordering Provider Test Date Status DEEPTHI BOSWELL 11/19/2024 12:30:44 Final Observation Date Value Abnormality Reference (Units ) Status Ferritin 11/19/2024 12:30:44 73 30-400 (ng /mL) Final Performing Location LABORATORY [facility] - [address] [place] [address]
--- OUTSIDE RECORDS SUMMARY | 2024-11-21 09:28 | External Medical Summary ---
Author Name Unknown Address Unknown Organization [id number]:LABORATORY [facility] [place] - [address] [place] [address] Laboratory Report Ordering Provider Test Date Status ABIEL BOSWELLVANESSA 09/05/2024 14:49:20 Final Observation Date Value Abnormality Reference (Units ) Status Iron 09/05/2024 14:49:20 52 45-176 (ug/dL) Final Iron-binding capacity 09/05/2024 14:49:20 384 250-425 (ug/dL) Final Transferrin Sat % 09/05/2024 14:49:20 14 Below low normal 15-55 (%) Final Performing Location LABORATORY [facility] - [address] [place] [address]
--- OUTSIDE RECORDS SUMMARY | 2024-11-21 09:28 | External Medical Summary ---
Author Name Unknown Address Unknown Organization [id number]:LABORATORY [facility] [place] [place] - [address] [place] [address] Laboratory Report Ordering Provider Test Date Status DEEPTHI BOSWELL 09/05/2024 14:49:20 Final Observation Date Value Abnormality Reference (Units ) Status TSH 09/05/2024 14:49:20 1.72 0.27-4.20 (uIU/mL) Final Performing Location LABORATORY [facility] - [address] [place] [facility] [address]
--- OUTSIDE RECORDS SUMMARY | 2024-11-21 09:28 | External Medical Summary | Summary of Care ---
Author Name Unknown Organization [facility] Address [address] [place] [address] Phone [phone] Care Team Providers Care Central Sterile Supply Technician Name Role Phone Priya Keith MD Primary Care Provider [phone] Reason for Visit * Reason Comments Outpatient Testing Encounter Details Date Type Department Care Team (Late st Contact Info) Description 09/05/2024 2:50 PM EST Laboratory Laboratory [facility] [address] [place] [address] [place], Lab Scenery [address] [place] [address] HTN, goal below 140/90; Anemia, unspecified type; Age-related osteoporosis without current pathological fracture Allergies No known active allergiesdocumented as of this encounter (statuses as of 09/05/2024) Medications [facility] Natural Products (OSTEO BI-FLEX ADV TRIPLE ST) [...] as of this encounter (statuses as of 09/05/2024) Active Problems Problem Noted Date Diagnosed Date Right inguinal hernia 06/20/2024 Umbilical hernia without obstruction and without gangrene 06/20/2024 Benign paroxysmal vertigo of left ear 07/17/2023 History of lower GI bleeding 07/17/2023 Vascular ectasia of colon 07/17/2023 History of anemia 07/17/2023 Coronary artery disease invo lving [place] coronary artery of [place] heart without angina pectoris 01/11/2023 Dyslipidemia, goal LDL below 70 01/11/2023 Statin intolerance 05/03/2022 Mitral valve prolapse 07/15/2021 Gastro-esophageal reflux disease without esophag itis 11/05/2020 Chronic maxillary sinusitis 10/03/2019 HTN, goal below 140/90 08/04/2019 Pure hypercholesterolemia 01/06/2019 Rosacea 01/06/2019 High risk for fracture due to osteoporosis by DE XA scan 01/06/2019 Mitral regurgitation 08/18/2012 Chronic rhinitis 01/03/2010 Degeneration of cervical intervertebral disc 08/2010 Meniere's disease, vestibular, active 01/03/2010 History of tobacco use 01/03/2010 documented as of this encounter (statuses as of 09/05/2024) Resolved Problems Problem Noted Date Diagnosed Date [...] as of this encounter (statuses as of 09/05/2024) Immunizations Name Administration Dates Next Due COVID-19 [...] 9:45 AM EDT Office Visit General Surgery, [facility] [address] [place] [address] Ole Lee MD [address] [place] [address] 01/01/2025 8:30 AM EDT Office Visit Cardiology, [facility] [address] [place] [address] Shruti Friedman PA-C [address] [place] [address] Pending Results Name Type Priority Associated Diagnoses Date /Time COMPREHENSIVE METABOLIC PANEL Lab Routine HTN, goal below 140/90 09/05/2024 2:49 PM EST CBC WITH WBC DIFFERENTIAL AND ANEMIA REFLEX WORKUP Lab Routine Anemia, unspecified type 09/05/2024 2:49 PM EST 25-HYDROXY VITAMIN D Lab Routine Age-related osteoporosis without current pathological fracture 09/05/2024 2:49 PM EST ANEMIA CBC Lab Routine Anemia, unspecified type 09/05/2024 2:49 PM EST DIFFERENTIAL, AUTOMATED Lab Routine Anemia, unspecified type 09/05/2024 2:49 PM EST ANEMIA REFLEX CHEMISTRY HOLD Lab Routine Anemia, unspecified type 09/05/2024 2:49 PM EST Scheduled Procedures Name Priority Associated [...] 10/26/2024 10/26/2023 Albumin/Creatinine Ratio 01/11/2025 01/11/2022 GFR 06/20/2025 06/20/2024, 08/24, 05/10/2023, Additional history exists Colonoscopy 04/24/2027 04/24/2022, 08/0 09/2021, 04/13/2022, Additional history exists DTap/Tdap Vaccines (2 - Td or Tdap) 01/06/2029 01/06/2019, 02/16/2009 Pneumococcal Vaccine: 65+ Years Completed 05/03/2017, 01/06/2009 Zoster Vaccines Completed 06/14/2020, 04/08/2020 VITAMIN D LEVEL ONCE IN A LIFETIME-USE SMARTSET# [id number] Completed 01/28/2021, 06/20/2017, 02/12/2014, Additional history exists RETIRED - COLONOSCOPY-EVERY 5 YRS AGES 18-100 Discontinued 04/24/2022, 04/24/2022, 04/13/2022, Additional history exists Influenza Vaccine (FLU shot) Completed 06/16/2024, 10/26/2023, 07/13/2022, Additional history exists HPV (Gardasil) Vaccine Aged Out No lo nger eligible based on patient's age to complete this topic Hepatitis B Vaccine Aged Out No longe r eligible based on patient's age to complete this topic MENINGOCOCCAL (MENACTRA/MENVEO) Aged Out No longer eligible based on patient's age to complete this topic documented as of this encounter Medical Devices Implanted Type Area Bait Packer Device Identifier Shelf Expiration Date Model / Serial / Lot Envista Toric Mx60t Se +22.0 Cyl 2.00 Implanted:Qty: 1 on 11/11/2020 by Pk Chapa MD at [facility] Left: Eye 04/23/2021 [id number] / [id number] / [id number] Toric 200 21.5 Implanted:Qty: 1 on 11/23/2020 by Pk Chapa MD at OR [facility] Right: Eye 06/23/2021 [id number] / [id number] / documented as of this encounter Visit Diagnoses Diagnosis HTN, goal below 140/90 Unspecified essential hypertension Anemia, unspecified type Age-related osteoporosis without current pathological fracture Senile osteoporosis documented in this encounter Care Teams Central Sterile Supply Technician Relationship Specialty Start Date End Date Priya Keith MD [address] [place] [address], [place] [address] PCP - General Internal Medicine 01/24/24 documented as of this encounter
--- OUTSIDE RECORDS SUMMARY | 2024-11-21 09:28 | External Medical Summary | Summary of Care ---
Author Name Unknown Organization [facility] Address [address] [place] [address] Phone [phone] Care Team Providers Care Deputy Commonwealth'S Attorney Name Role Phone Priya Keith MD Primary Care Provider [phone] Reason for Visit * Reason Comments Follow Up Tight feeling around left eye and left ear - states he never took the prescribed gabapentin - states he also feels pressure in his left ear Encounter Details Date Type Department Care Team (Latest Contact Info) Description 09/05/2024 2:00 PM EST Office Visit General Internal Medicine [facility] [address] [facility] [place], [place] [id number] Priya Keith MD [address] [place] [address] HTN, goal below 140/90*; Rosacea; PND (post-nasal drip); Mitral valve prolapse; TMJ (sprain of temporomandibular joint), sequela; Nonrheumatic mitral valve regurgitation; History of tobacco use; History of lower GI bleeding; History of anemia; Gastro-esophageal reflux disease without esophagitis; Age-related osteoporosis without current pathological fracture; Dyslipidemia, goal LDL below 70; Coronary artery disease involving [place] coronary artery of [place] heart without angina pectoris; Chronic rhinitis; Chronic maxillary sinusitis; Degeneration of cervical intervertebral disc; Benign paroxysmal vertigo of left ear; High risk for fracture due to osteoporosis by DEXA scan; Vestibular active Meniere's disease, unspecified laterality; Pure hypercholesterolemia; Statin intolerance; Vascular ectasia of colon; Umbilical hernia without obstruction and without gangrene; Anemia, unspecified type; HTN, goal below 150/90 Allergies No known active allergiesdocumented as of this encounter (statuses as of 09/05/2024) Medications Misc Natural Products (OSTEO BI-FLEX ADV [...] anemia 07/17/2023 Coronary artery disease invo lving [place] coronary artery of [place] heart without angina pectoris 01/11/2023 Dyslipidemia, goal [...] mRNA, LNP-s, No Pre serve, 2-Dose Series ([employer]) 01/07/2021,12/16/2020 Pneumococcal Conjugate Vacc, 13 Valent (Prevnar) [...] documented in this encounter Progress Notes * Priya Keith MD - 09/05/2024 2:24 PM EST [...] HENT: Head: Normocephalic. Comments: Tenderness in left latter day and TMJ Right Ear: There is no [...] LDL below 70 Coronary artery disease involving [place] coronary artery of [place] heart without angina pectoris Stable Continue current [...] his left ear documented in this encounter Plan of Treatment Upcoming Encounters Date Type Department Care Team (Late st Contact Info) Description 12/05/2024 9:45 AM EDT Office Visit General Surgery, [facility] [address] [address] Ole Lee MD [address] [place] [address] 01/01/2025 8:30 AM EDT Office Visit Cardiology, [facility] [address] [address] Shruti Friedman PA-C [address] [place] [address] Pending Results Name Type Priority Associated Diagnoses Date /Time CBC WITH WBC DIFFERENTIAL AND ANEMIA REFLEX WORKUP Lab Routine Anemia, unspecified type 09/05/2024 2:49 PM EST 25-HYDROXY VITAMIN D Lab Routine Age-related osteoporosis without current pathological fracture 09/05/2024 2:49 PM EST Scheduled Orders Name Type Priority Associated Diagnoses Orde r Schedule CBC WITH WBC DIFFERENTIAL AND ANEMIA REFLEX WORKUP Lab Routine Anemia, unspecified type Expected: 09/05/2024 (Approximate), Expires: 09/05/2025 25-HYDROXY VITAMIN D Lab Routine Age-related osteoporosis without current pathological fracture Expected: 09/05/2024 (Approximate), Expires: 09/05/2025 Scheduled Procedures Name Priority Associated Diagnoses Date/Ti [...] D LEVEL ONCE IN A LIFETIME-USE SMARTSET# [id number] Completed 01/28/2021, 06/20/2017, 02/12/2014, Additional history exists [...] this encounter Medical Devices Implanted Type Area Soft Work Wrapper Examiner Device Identifier Shelf Expiration Date Model / Serial / Lot Envista Toric Mx60t Se +22.0 Cyl 2.00 Implanted:Qty: 1 on 11/11/2020 by Pk Chapa MD at OR [facility] Left: Eye 04/23/2021 [id number] / [id number] / [id number] Toric 200 21.5 Implanted:Qty: 1 on 11/23/2020 by Pk Chapa MD at OR [facility] Right: Eye 06/23/2021 [id number] / [id number] / documented as of this encounter Results * COMPREHENSIVE METABOLIC PANEL (09/05/2024 2:49 PM EST) BUN 16 6 - 20 mg/dL 09/05/2024 4:03 PM EST [facility]- CREATININE 1.0 0.6 - 1.2 mg/dL 09/05/2024 4:03 PM EST [facility]- EGFR 76 >=60 mL/min 09/05/2024 4:03 PM EST [facility]- Comment:eGFR is calculated b ased on the CKD-EPI 2020 equation. SODIUM 141 135 - 146 mmol/L 09/05/2024 4:03 PM EST [facility] 56- POTASSIUM 4.7 3.5 - 5.1 mmol/L 09/05/2024 4:03 PM EST [facility] 56- CHLORIDE 104 98 - 107 mmol/L 09/05/2024 4:03 PM EST [facility] 56- CO2 25 22 - 32 mmol/L 09/05/2024 4:03 PM EST [facility] 56- ANION GAP 12 7 - 15 mmol/L 09/05/2024 4:03 PM [facility] 56- GLUCOSE 97 70 - 120 mg/dL 09/05/2024 4:03 PM [facility] 56 Albumin 4.5 3.8 - 5.0 g/dL 09/05/2024 4:03 PM EST [facility] 56 AST 33 10 - 50 U/L 09/05/2024 4:03 PM EST [facility] 56 Alkaline Phosphatase 77 35 - 130 U/L 09/05/2024 4:[address] Bilirubin, Total 0.2 <=1.2 mg/dL 09/05/2024 4:03 PM EST [address] CALCIUM 9.7 8.4 - 10.2 mg/dL 09/05/2024 4:[address] Protein 7.5 6.0 - 8.3 g/dL 09/05/2024 4:03 PM EST [address] ALT 35 10 - 50 U/L 09/05/2024 4:[address] Blood Venous blood specimen / Unknown Venipuncture / Unknown 09/05/2024 2:49 PM EST 09/05/2024 2:49 PM EST Priya Keith MD LAB BLOOD ORDERABLES Final Res ult [facility] [address] [place] [address] documented in this encounter Visit Diagnoses Diagnosis [...] and unspecified hyperlipidemia Coronary artery disease involving [place] coronary artery of [place] heart without angina pectoris Chronic rhinitis Chronic [...] Anemia, unspecified type HTN, goal below 150/90 documented in this encounter Care Teams Deputy Commonwealth'S Attorney Relationship Specialty Start Date End Date Priya Keith MD [address] [place] [address] PCP - General Internal Medicine 01/24/24 documented as of this encounter
--- OUTSIDE RECORDS SUMMARY | 2024-11-21 09:28 | External Medical Summary ---
Author Name Unknown Address Unknown Organization [id number]:[facility] [place] - [address] [place] [address] Laboratory Report Ordering Provider Test Date Status DEEPTHI BOSWELL 09/05/2024 14:49:20 Final Observation Date Value Abnormality Reference (Units ) Status Folic Acid 09/05/2024 14:49:20 17.6 >4.5 (ng/ mL) Final Performing Location [facility] [place] - [address] [place] [address]
--- OUTSIDE RECORDS SUMMARY | 2024-11-21 09:28 | External Medical Summary ---
Author Name Unknown Address Unknown Organization [id number]:LABORATORY [facility] [place] - [address] [facility] [address] Laboratory Report Ordering Provider Test Date Status DEEPTHI BOSWELL 09/05/2024 14:49:20 Final Observation Date Value Abnormality Reference (Units ) Status WBC, Total 09/05/2024 14:49:20 5.16 4.00-10.8 0 (K/uL) Final RBC 09/05/2024 14:49:20 4.03 4.50-5.25 (M/uL) Final Hemoglobin 09/05/2024 14:49:20 12.7 Below low normal 14 .0-16.8 (g/dL) Final Anemia reflex testing trigge rs on a HGB < 12.0 for Females and HGB < 13.0 for Males in accordance with the WHO Anemia Guidelines
Anemia reflex testing triggers on a HGB < 12.0 for Females and HGB < 13.0 for Males in accordance with the WHO Anemia Guidelines HCT 09/05/2024 14:49:20 39.2 Below low normal 40. 0-48.4 (%) Final MCV 09/05/2024 14:49:20 97.3 82.0-99.5 (fL) Final MCH 09/05/2024 14:49:20 31.5 27.0-34.0 (pg) Final MCHC 09/05/2024 14:49:20 32.4 32.0-36.0 (g/dL) Final RDW 09/05/2024 14:49:20 13.3 11.5-15.5 (%) Final Platelets 09/05/2024 14:49:20 198 140-400 (K /uL) Final MPV 09/05/2024 14:49:20 11.8 6.6-11.1 ( fL) Final Nucleated erythrocytes/100 leukocytes [Ratio] in Blood by Automated count 09/05/2024 14:49:20 0 <=0 (/100 WBCs) Final Performing Location LABORATORY [facility] [place] - [address] [facility] [address]
--- OUTSIDE RECORDS SUMMARY | 2024-11-21 09:28 | External Medical Summary ---
Author Name Unknown Address Unknown Organization K01:LAB[facility]ATORY [facility] [place] - [address] [place] [address] Laboratory Report Ordering Provider Test Date Status DEEPTHI BOSWELL 09/05/2024 14:49:20 Final Observation Date Value Abnormality Reference (Units ) Status Retic, % (auto) 09/05/2024 14:49:20 1.24 0.80-1.90 (%) Final Reticulocytes, Absolute 09/05/2024 14:49:20 49.2 31.3-100.1 (K/uL) Final Reticulocyte fraction, immature 09/05/2024 14:49:20 10.5 2.5-20.6 (%) Final Reticulocyte HGB 09/05/2024 14:49:20 33.2 29.7-37.4 (pg) Final Performing Location [facility]ORY [facility] [place] - [address] [place] [address]
--- OUTSIDE RECORDS SUMMARY | 2024-11-21 09:28 | External Medical Summary ---
Author Name Unknown Address Unknown Organization K09:[facility] [place] [facility] - [address] [place] [address] Laboratory Report Ordering Provider Test Date Status DEEPTHI BOSWELL 09/05/2024 14:49:20 Final Observation Date Value Abnormality Reference (Units ) Status BUN 09/05/2024 14:49:20 16 6-20 (mg/dL) Final Creatinine 09/05/2024 14:49:20 1.0 0.6-1.2 (mg/dL) Final Glomerular filtration rate/1.73 sq M.predicted [Volume Rate/Area] in Serum, Plasma or Blood by Creatinine-based formula (CKD-EPI) 09/05/2024 14:49:20 76 >=60 (mL/min) Final eGFR is calculated based on the CKD-EPI 2020 equation. Sodium 09/05/2024 14:49:20 141 135-146 (m mol/L) Final Potassium 09/05/2024 14:49:20 4.7 3.5-5.1 (m mol/L) Final Cl 09/05/2024 14:49:20 104 98-107 (mm ol/L) Final CO2 09/05/2024 14:49:20 25 22-32 (mmo l/L) Final Anion gap 09/05/2024 14:49:20 12 7-15 (mmol /L) Final Glucose 09/05/2024 14:49:20 97 70-120 (mg /dL) Final Albumin 09/05/2024 14:49:20 4.5 3.8-5.0 (g /dL) Final AST (Aspartate aminotransferase) 09/05/2024 14:49:20 33 10-50 (U/L) Final Alk Phos 09/05/2024 14:49:20 77 35-130 (U/ L) Final Bilirubin, Total 09/05/2024 14:49:20 0.2 <=1 .2 (mg/dL) Final Calcium 09/05/2024 14:49:20 9.7 8.4-10.2 ( mg/dL) Final Protein 09/05/2024 14:49:20 7.5 6.0-8.3 (g /dL) Final ALT (Alanine aminotransferase) 09/05/2024 14:49:20 35 10-50 (U/L) Final Performing Location [facility] [place] [facility] [address] [place] [address]
--- OUTSIDE RECORDS SUMMARY | 2024-11-21 09:28 | External Medical Summary ---
Author Name Unknown Address Unknown Organization K01:[facility] [place] [address] [facility] [address] Laboratory Report Ordering Provider Test Date Status ABIEL BOSWELLVANESSA 09/05/2024 14:49:20 Final Observation Date Value Abnormality Reference (Units ) Status SYNC LEUKOCYTES IN BLOOD BY AUTOMATED COUNT 09/05/2024 14:49:20 5.16 4.00-10.80 (K/uL) Final Segs 09/05/2024 14:49:20 62.0 40.0-75.0 (%) Final Lymphs % 09/05/2024 14:49:20 22.3 18.0-42.0 (%) Final Monos 09/05/2024 14:49:20 9.9 1.0-11.0 (%) Final Eosinophils 09/05/2024 14:49:20 3.9 0.0-6.0 (%) Final Basos 09/05/2024 14:49:20 1.7 0.0-2.0 (%) Final Immature Granulocyte, Percent 09/05/2024 14:49:20 0.2 0.0-2.0 (%) Final Absolute Segs 09/05/2024 14:49:20 3.20 1.80-7.70 (K/uL) Final Lymphs, absolute 09/05/2024 14:49:20 1.15 1.00-4.80 (K/ul) Final Monos, Abs 09/05/2024 14:49:20 0.51 0.00-1.10 (K/uL) Final Eos, Abs 09/05/2024 14:49:20 0.20 0.00-0.70 (K/uL) Final Basos, Abs 09/05/2024 14:49:20 0.09 0.00-0.20 (K/uL) Final Immature Granulocytes, Number 09/05/2024 14:49:20 0.01 0.00-0.20 (K/uL) Final Performing Location [facility] [place] [address] [facility] [address]
--- OUTSIDE RECORDS SUMMARY | 2024-11-21 09:28 | External Medical Summary ---
Author Name Unknown Address Unknown Organization K01:[facility] [place] - [address] [place] [address] Laboratory Report Ordering Provider Test Date Status ELBERTABIELVANESSA 09/05/2024 14:49:20 Final Deficient: <20 ng/mL
Ins ufficient: 20-29 ng/mL
Recommended/Optimum:30-50 ng/mL

Vitamin D intoxication is rare. If suspicious of Vitamin D toxicity, evaluation of serum Calcium and PTH is recommended. Observation Date Value Abnormality Reference (Units ) Status 25-OH Vitamin D total 09/05/2024 14:49:20 37 >19 (ng/mL) Final Performing Location [facility] [place] [address] [place] [address]
--- OUTSIDE RECORDS SUMMARY | 2024-11-21 09:28 | External Medical Summary | Summary of Care ---
Author Name Unknown Organization [facility] Address [address] [place] [address] Phone [phone] Care Team Providers Care District Sales Leader Name Role Phone Priya Keith MD Primary Care Provider [phone] Reason for Visit * Reason Comments Follow Up Tight feeling around left eye and left ear - states he never took the prescribed gabapentin - states he also feels pressure in his left ear Encounter Details Date Type Department Care Team (Latest Contact Info) Description 09/05/2024 2:00 PM EST Office Visit General Internal Medicine [facility] [address] [facility] [place], [place] [id number] Priya Keith MD [address] [place] [address] HTN, goal below 140/90*; Rosacea; PND (post-nasal drip); Mitral valve prolapse; TMJ (sprain of temporomandibular joint), sequela; Nonrheumatic mitral valve regurgitation; History of tobacco use; History of lower GI bleeding; History of anemia; Gastro-esophageal reflux disease without esophagitis; Age-related osteoporosis without current pathological fracture; Dyslipidemia, goal LDL below 70; Coronary artery disease involving kiana coronary artery of kiana heart without angina pectoris; Chronic rhinitis; Chronic [...] anemia 07/17/2023 Coronary artery disease invo lving k[place] coronary artery of kiana heart without angina pectoris 01/11/2023 Dyslipidemia, goal [...] mRNA, LNP-s, No Pre serve, 2-Dose Series (S5 Tech) 01/07/2021,12/16/2020 Pneumococcal Conjugate Vacc, 13 Valent (Prevnar) [...] HENT: Head: Normocephalic. Comments: Tenderness in left jainism and TMJ Right Ear: There is no [...] LDL below 70 Coronary artery disease involving kiana coronary artery of kiana heart without angina pectoris Stable Continue current [...] 9:45 AM EDT Office Visit General Surgery, [facility] [address] [place] [address] Ole Lee MD [address] [place] [address] 01/01/2025 8:30 AM EDT Office Visit Cardiology, [facility] [address] [place] [address] Shruti Friedman PA-C [address] [place] [address] Pending Results Name Type Priority Associated Diagnoses [...] D LEVEL ONCE IN A LIFETIME-USE SMARTSET# 71679 Completed 01/28/2021, 06/20/2017, 02/12/2014, Additional history exists [...] this encounter Medical Devices Implanted Type Area Merchandise Support Associate Device Identifier Shelf Expiration Date Model / Serial / Lot Envista Toric [id number] Se +22.0 Cyl 2.00 Implanted:Qty: 1 on 11/11/2020 by Pk Chapa MD at OR [facility] Left: Eye 04/23/2021 [id number] / [id number] / [id number] Toric 200 21.5 Implanted:Qty: 1 on 11/23/2020 by Pk Chapa MD at OR [facility] Right: Eye 06/23/2021 [id number] / [id number] / documented as of this encounter Results * COMPREHENSIVE METABOLIC PANEL (09/05/2024 2:49 PM EST) BUN 16 6 - 20 mg/dL 09/05/2024 4:03 PM EST [facility] [place] [facility] CREATININE 1.0 0.6 - 1.2 mg/dL 09/05/2024 4:03 PM EST [facility] [place] [facility] EGFR 76 >=60 mL/min 09/05/2024 4:03 PM EST [facility] [place] [facility] Comment:eGFR is calculated b ased on the CKD-EPI 2020 equation. SODIUM 141 135 - 146 mmol/L 09/05/2024 4:03 PM EST [facility]- POTASSIUM 4.7 3.5 - 5.1 mmol/L 09/05/2024 4:03 PM EST [facility] [place] [facility]- CHLORIDE 104 98 - 107 mmol/L 09/05/2024 4:03 PM EST [facility] [place] [facility] CO2 25 22 - 32 mmol/L 09/05/2024 4:03 PM EST [facility] [place] [facility]- ANION GAP 12 7 - 15 mmol/L 09/05/2024 4:03 PM [facility] 56- GLUCOSE 97 70 - 120 mg/dL 09/05/2024 4:03 PM [facility] 56 Albumin 4.5 3.8 - 5.0 g/dL 09/05/2024 4:03 PM EST [facility] 56 AST 33 10 - 50 U/L 09/05/2024 4:03 PM EST [facility] 56 Alkaline Phosphatase 77 35 - 130 U/L 09/05/2024 4:[address] Bilirubin, Total 0.2 <=1.2 mg/dL 09/05/2024 4:03 PM EST [address] CALCIUM 9.7 8.4 - 10.2 mg/dL 09/05/2024 4:[address] Protein 7.5 6.0 - 8.3 g/dL 09/05/2024 4:03 PM EST [address] ALT 35 10 - 50 U/L 09/05/2024 4:[address] Blood Venous blood specimen / Unknown Venipuncture / Unknown 09/05/2024 2:49 PM EST 09/05/2024 2:49 PM EST Priya Keith MD LAB BLOOD ORDERABLES Final Res ult [facility] [address] [place] [address] documented in this encounter Visit Diagnoses Diagnosis [...] and unspecified hyperlipidemia Coronary artery disease involving kiana coronary artery of kiana heart without angina pectoris Chronic rhinitis Chronic [...] 150/90 documented in this encounter Care Teams District Sales Leader Relationship Specialty Start Date End Date Priya Keith MD [address] [place] [id number] PCP - General Internal Medicine 01/24/24 documented as of this encounter
--- OUTSIDE RECORDS SUMMARY | 2024-11-21 09:28 | External Medical Summary ---
Author Name Unknown Address Unknown Organization K01:[facility] [place] - [address] [place] [address] Laboratory Report Ordering Provider Test Date Status DEEPTHI BOSWELL 09/05/2024 14:49:20 Final Observation Date Value Abnormality Reference (Units ) Status Vitamin B12 09/05/2024 14:49:20 687 506-5573 (pg/mL) Final Performing Location [facility] [place] - [address] [place] [address]
--- OUTSIDE RECORDS SUMMARY | 2024-11-21 09:29 | External Medical Summary ---
Author Name Unknown Address Unknown Organization K01:[facility]ATORY [facility] - [address] [place] [address] Laboratory Report Ordering Provider Test Date Status DEEPTHI BOSWELL 09/05/2024 14:49:20 Final Observation Date Value Abnormality Reference (Units ) Status Ferritin 09/05/2024 14:49:20 21 Below low normal 30- 400 (ng/mL) Final Performing Location [facility] - [address] [place] [address]
--- OUTSIDE RECORDS SUMMARY | 2024-11-21 09:29 | External Medical Summary | Summary of Care ---
Author Name Unknown Organization [facility] Address [address] [place] [address] Phone [phone] Care Team Providers Care Rehabilitation Therapy Aide Name Role Phone Priya Keith MD Primary Care Provider [phone] Reason for Visit * Reason Onset Date Comments Surgery Procedure Cancelled 07/14/2024 carlitos infante Encounter Details Date Type Department Care Team (Late st Contact Info) Description 07/14/2024 Telephone Pre Surgery Center, [facility] [address] [facility] [place] [address] Ole Lee MD [address] [facility] [place] [address] Surgery Procedure Cancelled (hernias) Allergies No known active allergiesdocumented as of this encounter (statuses as of 07/16/2024) Medications Medication Sig Dispensed Refills Start Date End Date Status Misc Natural Products (OSTEO BI-FLEX ADV TRIPLE [...] mouth in the morning. 90 Tablet 3 02/20/2024 Active documented as of this encounter (statuses as of 07/16/2024) Active Problems Problem Noted Date Diagnosed Date Right inguinal hernia 06/20/2024 Umbilical hernia without obstruction and without gangrene 06/20/2024 Benign paroxysmal vertigo of left ear 07/17/2023 History of lower GI bleeding 07/17/2023 Vascular ectasia of colon 07/17/2023 History of anemia 07/17/2023 Coronary artery disease invo lving [place] coronary artery of [place] heart without angina pectoris 01/11/2023 Dyslipidemia, goal [...] as of this encounter (statuses as of 07/16/2024) Resolved Problems Problem Noted Date Diagnosed Date Resolved Date Post-nasal drip 01/06/2019 08/04/2019 Borderline blood pressure 01/06/2019 Lesion of right pinna 01/06/20192018 HTN, goal below 140/90 09/04/201201/12 Blanchard's esophageal ulceration 08/18/2012 01/12/2014 Vertebral fracture, pathological 02/16/2011 07/04/2018 Dyspnea and respiratory abnormality 01/04/2010 08/04/2019 Overview: ICD-10 update of inactive term Deviated nasal septum 01/03/20102019 Subjective tinnitus 01/03/2010 08/04/20 19 Vertigo 01/03/2010 08/04/2019 Other specified forms of hearing loss 01/03/2010 08/04/2019 ADVANCE DIRECTIVE INFORMATION 03/08/2006 02/12/2017 Overview: No, Advance Directive brochure given to patient at prior appointment. UNILAT INGUINAL HERNIA 05/05/200302/12 documented as of this encounter (statuses as of 07/16/2024) Immunizations Name Administration Dates Next Due COVID-19 [...] Recorded PHQ Adult Total Score 0 10/26/2023 Utilities Answer Date Recorded Do you have trouble paying y our heating, water, or electric bill? (Adult - for ages 18 years and over) Not on file 03/11/2024 Is your family able to pay t he heat, water, or electric bill? (Household - for ages 0-17 years) Not on file 03/11/2024 Does your family have access to good internet? (Household - for ages 0-17 years) Not on file 03/11/2024 Social Connections Answer Date Recorded How often do you feel lonely or isolated from those around you? (Adult - for ages 18 years and over) Not on file 03/11/2024 Sex and Gender Information Value Date Recorded Sex Assigned at Male 02/24/2019 1:00 PM EDT Gender Identity Male 02/24/2019 1:00 PM EDT Sexual Orientation Straight 02/24/2019 1: 00 PM EDT Job Start Date Occupation Industry Not on file Not on file Not on file documented as of this encounter Miscellaneous Notes * Telephone Encounter - Angelique Goldman LPN - 07/16/2024 7:40 AM EDT Talked to patient about new directions to [facility] * Telephone Encounter - Eugenie Cohen OSA - 07/15/2024 8:40 AM EDT Scheduled at [facility] on 07/21/24. * Telephone Encounter - Angelique Goldman LPN - 07/15/2024 8:10 AM EDT Called and asked to have Vaibhav call me I have some different directions for his surgery. * Telephone Encounter - Aida Ruffin RN - 07/14/2024 5:01 PM EDT Pt has mod to severe mitral valve regurgitation, therefore, does not meet our criteria at [facility]. He will need a hospital setting. I spoke with pt at 5 pm this evening, so he IS aware. Thank you. documented in this encounter Plan of Treatment Upcoming Encounters Date Type Department Care Team (Late st Contact Info) Description 07/21/2024 7:30 AM EDT Office Visit [facility], Operating Room, [facility] [address] [facility] [place] [address] Ole Lee MD [address] [place] [address] 08/06/2024 11:45 AM EST Office Visit General Surgery, [facility] [address] [place] [address] Ole Lee MD [address] [place] [address] 08/15/2024 2:00 PM EST Office Visit Cardiology, [facility] [address] [place] [address] Shruti Friedman PA-C [address] [place] [address] 09/05/2024 2:00 PM EST Office Visit General Internal Medicine [facility] [address] [place] [address] Priya Keith MD 200 [place] [address] Scheduled Procedures Name Priority Associated Diagnoses Date/Ti [...] D LEVEL ONCE IN A LIFETIME-USE SMARTSET# [id number] Completed 01/28/2021, 06/20/2017, 02/12/2014, Additional history exists [...] this encounter Medical Devices Implanted Type Area Apparel Pattern Maker Device Identifier Shelf Expiration Date Model / Serial / Lot Envista Toric Mx60t Se +22.0 Cyl 2.00 Implanted:Qty: 1 on 11/11/2020 by Pk Chapa MD at OR [facility] Left: Eye 04/23/2021 [id number] / [id number] / [id number] Toric 200 21.5 Implanted:Qty: 1 on 11/23/2020 by Pk Chapa MD at OR [facility] Right: Eye 06/23/2021 [id number] / [id number] / documented as of this encounter Care Teams Rehabilitation Therapy Aide Relationship Specialty Start Date End Date Priya Keith MD [address] [place] [address] PCP - General Internal Medicine 01/24/24 documented as of this encounter
--- OUTSIDE RECORDS SUMMARY | 2024-11-21 09:29 | External Medical Summary | Summary of Care ---
Author Name Unknown Organization [facility] Address [address] [place] [address] Phone [phone] Care Team Providers Care Blasting Entry Specialist Name Role Phone Priya Keith MD Primary Care Provider [phone] Reason for Visit * Reason Onset Date Comments Surgery Procedure Cancelled 07/14/2024 carlitos infante Encounter Details Date Type Department Care Team (Late st Contact Info) Description 07/14/2024 Telephone Pre Surgery Center, [facility] [address] [facility] [place] [address] Ole Lee MD [address] [facility] [place] [address] Surgery Procedure Cancelled (hernias) Allergies No known active allergiesdocumented as of this encounter (statuses as of 07/15/2024) Medications Medication Sig Dispensed Refills Start Date [...] as of this encounter (statuses as of 07/15/2024) Active Problems Problem Noted Date Diagnosed Date Right inguinal hernia 06/20/2024 Umbilical hernia without obstruction and without gangrene 06/20/2024 Benign paroxysmal vertigo of left ear 07/17/2023 History of lower GI bleeding 07/17/2023 Vascular ectasia of colon 07/17/2023 History of anemia 07/17/2023 Coronary artery disease invo lving [place] coronary artery of [place] heart without angina pectoris 01/11/2023 Dyslipidemia, goal [...] as of this encounter (statuses as of 07/15/2024) Resolved Problems Problem Noted Date Diagnosed Date [...] as of this encounter (statuses as of 07/15/2024) Immunizations Name Administration Dates Next Due COVID-19 [...] encounter Miscellaneous Notes * Telephone Encounter - Eugenie Cohen OSA - 07/15/2024 8:40 AM EDT Scheduled at [facility] on 07/21/24. * Telephone Encounter - Angelique Goldman LPN - 07/15/2024 8:10 AM EDT Called and asked to have Vaibhav call me I have some different directions for his surgery. * Telephone Encounter - Aida Ruffin RN - 07/14/2024 5:01 PM EDT Pt has mod to severe mitral valve regurgitation, therefore, does not meet our criteria at [facility]. He will need a hospital setting. I spoke with pt at 5 pm this evening, so he IS aware. Thank you. documented in this encounter Plan of Treatment Upcoming Encounters Date Type Department Care Team (Late st Contact Info) Description 07/21/2024 7:30 AM EDT Office Visit [facility], Operating Room, [facility] [address] [facility] [place] [address] Ole Lee MD 132 [facility] [place] [address] 08/06/2024 11:45 AM EST Office Visit General Surgery, [facility] [address] [place] [address] Ole Lee MD [address] [place] [address] 08/15/2024 2:00 PM EST Office Visit Cardiology, [facility] [address] [place] [address] Shruti Friedman PA-C [address] [place] [address] 09/05/2024 2:00 PM EST Office Visit General Internal Medicine [facility] [address] [facility] [place] [address] Priya Keith MD [address] [facility] [place] [address] Scheduled Procedures Name Priority Associated Diagnoses Date/Ti [...] 05/10/2023, Additional history exists Colonoscopy 04/24/2027 04/24/2022, 0809/2021, 04/13/2022, Additional history exists DTap/Tdap Vaccines (2 - Td or Tdap) 01/06/2029 01/06/2019, 02/16/2009 Pneumococcal Vaccine: 65+ Years Completed 05/03/2017, 01/06/2009 Zoster Vaccines Completed 06/14/2020, 04/08/2020 VITAMIN D LEVEL ONCE IN A LIFETIME-USE SMARTSET# [id number] Completed 01/28/2021, 06/20/2017, 02/12/2014, Additional history exists [...] this encounter Medical Devices Implanted Type Area Staff Mine Warfare Officer Device Identifier Shelf Expiration Date Model / Serial / Lot Envista Toric [id number] Se +22.0 Cyl 2.00 Implanted:Qty: 1 on 11/11/2020 by Pk Chapa MD at OR [facility] Left: Eye 04/23/2021 [id number] / [id number] / [id number] Toric 200 21.5 Implanted:Qty: 1 on 11/23/2020 by Pk Chapa MD at OR [facility] Right: Eye 06/23/2021 [id number] / [id number] / documented as of this encounter Care Teams Blasting Entry Specialist Relationship Specialty Start Date End Date Priya Keith MD [address] [facility] [place] [address] PCP - General Internal Medicine 01/24/24 documented as of this encounter
--- OUTSIDE RECORDS SUMMARY | 2024-11-21 09:29 | External Medical Summary | Summary of Care ---
Author Name Unknown Organization [facility] Address [address] [place] [address] Phone [phone] Care Team Providers Care Graphic Arts Technician Name Role Phone Priya Keith MD Primary Care Provider [phone] Reason for Visit * Reason Onset Date Comments Surgery Procedure Cancelled 07/14/2024 carlitos infante Encounter Details Date Type Department Care Team (Late st Contact Info) Description 07/14/2024 Telephone Pre Surgery Center, [facility] [address] [facility] [place] [address] Ole Lee MD [address] [facility] [place] [address] Surgery Procedure Cancelled (hernias) Allergies No known active allergiesdocumented as of this encounter (statuses as of 07/17/2024) Medications Medication Sig Dispensed Refills Start Date [...] as of this encounter (statuses as of 07/17/2024) Active Problems Problem Noted Date Diagnosed Date Right inguinal hernia 06/20/2024 Umbilical hernia without obstruction and without gangrene 06/20/2024 Benign paroxysmal vertigo of left ear 07/17/2023 History of lower GI bleeding 07/17/2023 Vascular ectasia of colon 07/17/2023 History of anemia 07/17/2023 Coronary artery disease invo lving [place] coronary artery of [place] heart without angina pectoris 01/11/2023 Dyslipidemia, goal [...] as of this encounter (statuses as of 07/17/2024) Resolved Problems Problem Noted Date Diagnosed Date [...] as of this encounter (statuses as of 07/17/2024) Immunizations Name Administration Dates Next Due COVID-19 [...] encounter Miscellaneous Notes * Telephone Encounter - Evita Yeh OSA - 07/17/2024 12:39 PM EDT Pre-op at [facility] calling in regarding this pt. Cardiology wants to see the pt before having surgery and soonest they could get him in is 08/15. Surgery needs postponed until after that appt. * Telephone Encounter - Angelique Goldman LPN - 07/16/2024 7:40 AM EDT Talked to patient about new directions to [facility] * Telephone Encounter - Eugenie Cohen OSA - 07/15/2024 8:40 AM EDT Scheduled at [facility] on 07/21/24. * Telephone Encounter - Angelique Goldman LPN - 07/15/2024 8:10 AM EDT Called and asked to have Vaibhav call me I have some different directions for his surgery. * Telephone Encounter - Aida Ruffin RN - 07/14/2024 5:01 PM EDT Pt has mod to severe mitral valve regurgitation, therefore, does not meet our criteria at [facility]. He will need a hospital setting. I spoke with pt at 5 pm this evening, so he IS aware. Thank you. documented in this encounter Plan of Treatment Upcoming Encounters Date Type Department Care Team (Late st Contact Info) Description 07/21/2024 7:30 AM EDT Office Visit [facility], Operating Room, [facility] [address] [place] [facility] [address] Ole Lee MD [address] [place] [address] 08/06/2024 11:45 AM EST Office Visit General Surgery, [facility] [address] [place] [address] Ole Lee MD [address] [place] [address] 08/15/2024 2:00 PM EST Office Visit Cardiology, [facility] [address] [place] [address] Shruti Friedman PA-C [address] [place] [address] 09/05/2024 2:00 PM EST Office Visit General Internal Medicine [facility] [address] [place], [place] [address] Priya Keith MD 200 [facility] [place] [address] Scheduled Procedures Name Priority Associated Diagnoses Date/Ti [...] D LEVEL ONCE IN A LIFETIME-USE SMARTSET# 06486 Completed 01/28/2021, 06/20/2017, 02/12/2014, Additional history exists [...] this encounter Medical Devices Implanted Type Area Publicity Director Device Identifier Shelf Expiration Date Model / Serial / Lot Envista Toric Mx60t Se +22.0 Cyl 2.00 Implanted:Qty: 1 on 11/11/2020 by Pk Chapa MD at [facility] Left: Eye 04/23/2021 [id number] / [id number] / [id number] Toric 200 21.5 Implanted:Qty: 1 on 11/23/2020 by Pk Chapa MD at OR [facility] Right: Eye 06/23/2021 [id number] / [id number] / documented as of this encounter Care Teams Graphic Arts Technician Relationship Specialty Start Date End Date Priya Keith MD 200 [place] [address] PCP - General Internal Medicine 01/24/24 documented as of this encounter
--- OUTSIDE RECORDS SUMMARY | 2024-11-21 09:29 | External Medical Summary | Summary of Care ---
Author Name Unknown Organization [facility] Address [address] [place] [address] Phone [phone] Care Team Providers Care Studio Designer Name Role Phone Priya Keith MD Primary Care Provider Reason for Visit * Reason Onset Date Comments Surgery Procedure Cancelled 07/14/2024 carlitos infante Encounter Details Date Type Department Care Team (Late st Contact Info) Description 07/14/2024 Telephone Pre Surgery Center, [facility] [address] [facility] [place] [address] Ole Lee MD [address] [place] [address] Surgery Procedure Cancelled (hernias) Allergies No known [...] anemia 07/17/2023 Coronary artery disease invo lving [place] coronary artery of [place] heart without angina pectoris 01/11/2023 Dyslipidemia, goal [...] Telephone Encounter - Eugenie Cohen OSA - 07/17/2024 1:19 PM EDT Lmom to return call * Telephone Encounter - Evita Yeh OSA - 07/17/2024 12:39 PM EDT Pre-op at [facility] calling in regarding this pt. Cardiology wants [...] - 07/15/2024 8:40 AM EDT Scheduled at [facility] on 07/21/24. * Telephone Encounter - Angelique Goldman LPN - 07/15/2024 8:10 AM EDT Called and asked to have Vaibhav call me I have some different directions for his surgery. * Telephone Encounter - Aida Ruffin, RN - 07/14/2024 5:01 PM EDT Pt has mod to severe mitral valve regurgitation, therefore, does not meet our criteria at [facility]. He will need a hospital setting. I spoke with pt at 5 pm this evening, so he IS aware. Thank you. documented in this encounter Plan of Treatment Upcoming Encounters Date Type Department Care Team (Late st Contact Info) Description 07/21/2024 7:30 AM EDT Office Visit [facility], Operating Room, [facility] [address] [facility], [place] [address] Ole Lee MD [address] [place] [address] 08/06/2024 11:45 AM EST Office Visit General Surgery, [facility] [address] [place] [address] Ole Lee MD [address] [place] [address] 08/15/2024 2:00 PM EST Office Visit Cardiology, [facility] [address] [place] [address] Shruti Friedman PA-C [address] [place] [address] 09/05/2024 2:00 PM EST Office Visit General Internal Medicine [facility] [address] [facility] [place], [place] [address] Priya Keith MD 200 [facility] [place] [address] Scheduled Procedures Name Priority Associated Diagnoses Date/Ti [...] D LEVEL ONCE IN A LIFETIME-USE SMARTSET# [id number] Completed 01/28/2021, 06/20/2017, 02/12/2014, Additional history exists [...] this encounter Medical Devices Implanted Type Area Blower Installer Device Identifier Shelf Expiration Date Model / Serial / Lot Dave Infante Mx60t Se +22.0 Cyl 2.00 Implanted:Qty: 1 on 11/11/2020 by Pk Chapa MD at OR [facility] Left: Eye 04/23/2021 [id number] / [id number] / [id number] Toric 200 21.5 Implanted:Qty: 1 on 11/23/2020 by Pk Chapa MD at OR [facility] Right: Eye 06/23/2021 [id number] / [id number] / documented as of this encounter Care Teams Studio Designer Relationship Specialty Start Date End Date Priya Keith MD 200 [facility] [place] [address] PCP - General Internal Medicine 01/24/24 documented as of this encounter
--- OUTSIDE RECORDS SUMMARY | 2024-11-21 09:29 | External Medical Summary | Summary of Care ---
Author Name Unknown Organization [facility] Address [address] [place] [address] Phone [phone] Care Team Providers Care Fur Feeder Name Role Phone Priya Keith MD Primary Care Provider [phone] Reason for Visit * Reason Onset Date Comments Surgery Procedure Cancelled 07/14/2024 carlitos infante Encounter Details Date Type Department Care Team (Late st Contact Info) Description 07/14/2024 Telephone Pre Surgery Center, [facility] [address] [facility] [place] [address] Ole Lee MD [address] [facility] [place] [place] [address] Surgery Procedure Cancelled (hernias) Allergies No known [...] anemia 07/17/2023 Coronary artery disease invo lving [place] coronary artery of [place] heart without angina pectoris 01/11/2023 Dyslipidemia, goal [...] - 07/17/2024 12:39 PM EDT Pre-op at [facility] calling in regarding this pt. Cardiology wants [...] - 07/15/2024 8:40 AM EDT Scheduled at [facility] on 07/21/24. * Telephone Encounter - Angelique Goldman LPN - 07/15/2024 8:10 AM EDT Called and asked to have Vabihav call me I have some different directions for his surgery. * Telephone Encounter - Aida Ruffin, RN - 07/14/2024 5:01 PM EDT Pt has mod to severe mitral valve regurgitation, therefore, does not meet our criteria at [facility]. He will need a hospital setting. I spoke with pt at 5 pm this evening, so he IS aware. Thank you. documented in this encounter Plan of Treatment Upcoming Encounters Date Type Department Care Team (Late st Contact Info) Description 07/21/2024 7:30 AM EDT Office Visit Non [facility], Operating Room, [facility] [address] [facility], [place] [address] Ole Lee MD [address] [place] [address] 08/06/2024 11:45 AM EST Office Visit General Surgery, [facility] [address] [place] [address] Ole Lee MD [address] [place] [address] 08/15/2024 2:00 PM EST Office Visit Cardiology, [facility] [address] [place] [address] Shruti Friedman PA-C [address] [place] [address] 09/05/2024 2:00 PM EST Office Visit General Internal Medicine [facility] [address] [facility] [place], [place] [address] Priya Keith MD 200 [facility] [place] [address] Scheduled Procedures Name Priority Associated Diagnoses Date/Ti [...] D LEVEL ONCE IN A LIFETIME-USE SMARTSET# 14974 Completed 01/28/2021, 06/20/2017, 02/12/2014, Additional history exists [...] this encounter Medical Devices Implanted Type Area Incident Response Lead Device Identifier Shelf Expiration Date Model / Serial / Lot Dave Infante Mx60t Se +22.0 Cyl 2.00 Implanted:Qty: 1 on 11/11/2020 by Pk Chapa MD at OR [facility] Left: Eye 04/23/2021 [id number] / [id number] / [id number] Toric 200 21.5 Implanted:Qty: 1 on 11/23/2020 by Pk Chapa MD at OR [facility] Right: Eye 06/23/2021 [id number] / [id number] / documented as of this encounter Care Teams Fur Feeder Relationship Specialty Start Date End Date Priya Keith MD 200 [facility] [place] [address] PCP - General Internal Medicine 01/24/24 documented as of this encounter
--- OUTSIDE RECORDS SUMMARY | 2024-11-21 09:29 | External Medical Summary | Summary of Care ---
Author Name Unknown Organization [facility] Address [address] [place] [address] Phone [phone] Care Team Providers Care Automobile Club Information Clerk Name Role Phone Priya Keith MD Primary Care Provider [phone] Reason for Visit * Reason Onset Date Comments Surgery Procedure Cancelled 07/14/2024 carlitos infante Encounter Details Date Type Department Care Team (Late st Contact Info) Description 07/14/2024 Telephone Pre Surgery Center, [facility] [address] [facility] [place] [address] Ole Lee MD [address] [facility] [place] [address] Surgery Procedure Cancelled (hernias) Allergies No known [...] anemia 07/17/2023 Coronary artery disease invo lving [place] coronary artery of [place] heart without angina pectoris 01/11/2023 Dyslipidemia, goal [...] criteria at [facility]. He will need a hospital setting. I spoke with pt at 5 pm this evening, so he IS aware. Thank you. documented in this encounter Plan of Treatment Upcoming Encounters Date Type Department Care Team (Latest Contact Info) Description 07/21/2024 7:30 AM EDT Office Visit Non [facility], Operating Room, [facility] [address] [facility], [place] [address] Ole Lee MD [address] [place] [address] 07/22/2024 7:45 AM EDT Hospital Encounter [facility], Operating Room [facility] [address] [place] [id number] Ole Lee MD [address] [place] [address] 07/22/2024 7:45 AM EDT - 07/22/2024 9:18 AM EDT Surgery OR [facility], Operating Room [facility] [address] [place] [address] Ole Lee MD [address] [place] [address] LAPAROSCOPIC REPAIR INGUINAL HERNIA INITIAL 08/06/2024 11:45 AM EST Office Visit General Surgery, [facility] [address] [place] [address] Ole Lee MD [address] [place] [address] 08/15/2024 2:00 PM EST Office Visit Cardiology, [facility] [address] [place] [address] Shruti Friedman PA-C [address] [place] [address] 09/05/2024 2:00 PM EST Office Visit General Internal Medicine [facility] [address] [facility] [place], [place] [address] Priya Keith MD 200 [place] [address] Scheduled Procedures Name Priority Associated Diagnoses Date/Ti pa LAPAROSCOPIC REPAIR INGUINAL HERNIA INITIAL Right inguinal hernia Umbilical hernia without obstruction and without gangrene 07/22/2024 7:45 AM EDT EPIGASTRIC/UMBILICAL HERNIA REPAIR INITIAL < 3 CM REDUCIBLE Right inguinal hernia Umbilical hernia without obstruction and without gangrene 07/22/2024 7:45 AM EDT COLONOSCOPY FLEXIBLE PROXIMAL DIAGNOSTIC Recall History of [...] D LEVEL ONCE IN A LIFETIME-USE SMARTSET# 17810 Completed 01/28/2021, 06/20/2017, 02/12/2014, Additional history exists [...] this encounter Medical Devices Implanted Type Area Clinical Administrator Device Identifier Shelf Expiration Date Model / Serial / Lot Envista Toric Mx60t Se +22.0 Cyl 2.00 Implanted:Qty: 1 on 11/11/2020 by Pk Chapa MD at [facility] Left: Eye 04/23/2021 [id number] / [id number] / [id number] Toric 200 21.5 Implanted:Qty: 1 on 11/23/2020 by Pk Chapa MD at OR [facility] Right: Eye 06/23/2021 [id number] / [id number] / documented as of this encounter Care Teams Automobile Club Information Clerk Relationship Specialty Start Date End Date Priya Keith MD [address] [place] [address] PCP - General Internal Medicine 01/24/24 documented as of this encounter
--- OUTSIDE RECORDS SUMMARY | 2024-11-21 09:29 | External Medical Summary | Summary of Care ---
Author Name Unknown Organization [facility] Address [address] [place] [address] Phone [phone] Care Team Providers Care Communications Superintendent Name Role Phone Priya Keith MD Primary Care Provider [phone] Reason for Visit * Reason Onset Date Comments Surgery Procedure Cancelled 07/14/2024 carlitos infante Encounter Details Date Type Department Care Team (Late st Contact Info) Description 07/14/2024 Telephone Pre Surgery Center, [facility] [address] [facility] [place] [address] Ole Lee MD [address] [facility] [place] [address] Surgery Procedure Cancelled (hernias) Allergies No known active allergiesdocumented as of this encounter (statuses as of 07/18/2024) Medications Medication Sig Dispensed Refills Start Date [...] as of this encounter (statuses as of 07/18/2024) Active Problems Problem Noted Date Diagnosed Date Right inguinal hernia 06/20/2024 Umbilical hernia without obstruction and without gangrene 06/20/2024 Benign paroxysmal vertigo of left ear 07/17/2023 History of lower GI bleeding 07/17/2023 Vascular ectasia of colon 07/17/2023 History of anemia 07/17/2023 Coronary artery disease invo lving [place] coronary artery of [place] heart without angina pectoris 01/11/2023 Dyslipidemia, goal [...] as of this encounter (statuses as of 07/18/2024) Resolved Problems Problem Noted Date Diagnosed Date [...] as of this encounter (statuses as of 07/18/2024) Immunizations Name Administration Dates Next Due COVID-19 [...] Telephone Encounter - Eugenie Cohen OSA - 07/18/2024 9:09 AM EDT SCHEDULED ON 08/25/2024. * Telephone Encounter - Eugenie Cohen OSA - 07/17/2024 1:19 PM EDT Lmom to return call * Telephone Encounter - Evita Yeh OSA - 07/17/2024 12:39 PM EDT Pre-op at [facility] calling in regarding this pt. Cardiology [...] - 07/15/2024 8:40 AM EDT Scheduled at [facility] on 07/21/24. * Telephone Encounter - Angelique Goldman LPN - 07/15/2024 8:10 AM EDT Called and asked to have Vaibhav call me I have some different directions for his surgery. * Telephone Encounter - Aida Ruffin RN - 07/14/2024 5:01 PM EDT Pt has mod to severe mitral valve regurgitation, therefore, does not meet our criteria at [facility]. He will need a hospital setting. I spoke with pt at 5 pm this evening, so he IS aware. Thank you. documented in this encounter Plan of Treatment Upcoming Encounters Date Type Department Care Team (Late st Contact Info) Description 08/15/2024 2:00 PM EST Office Visit [facility], [facility] [place] [address] Shruti Friedman PA-C [facility] [place] [address] 08/25/2024 7:15 AM EST Office Visit [facility], Operating Room, [facility] [address] [facility], [place] [address] Ole Lee MD [facility] [place] [address] 09/05/2024 2:00 PM EST Office Visit [facility] Internal [facility] [address] [place] [address] Priya Keith MD [address] [place] [address] 09/11/2024 1:15 PM EST Office Visit General Surgery, [facility] [address] [place] [address] Ole Lee MD [address] [place] [address] Scheduled Procedures Name Priority Associated Diagnoses Date/Ti [...] D LEVEL ONCE IN A LIFETIME-USE SMARTSET# 51706 Completed 01/28/2021, 06/20/2017, 02/12/2014, Additional history exists [...] this encounter Medical Devices Implanted Type Area Nanofabrication Specialist Device Identifier Shelf Expiration Date Model / Serial / Lot Envista Toric Mx60t Se +22.0 Cyl 2.00 Implanted:Qty: 1 on 11/11/2020 by Pk Chapa MD at OR [facility] Left: Eye 04/23/2021 [id number] / [id number] / [id number] Toric 200 21.5 Implanted:Qty: 1 on 11/23/2020 by Pk Chapa MD at OR [facility] Right: Eye 06/23/2021 [id number] / [id number] / documented as of this encounter Care Teams Communications Superintendent Relationship Specialty Start Date End Date Priya Keith MD 200 [facility] [place] [address] PCP - General Internal Medicine 01/24/24 documented as of this encounter
--- OUTSIDE RECORDS SUMMARY | 2024-11-21 09:30 | External Medical Summary | Summary of Care ---
Author Name Unknown Organization [facility] Address [address] [place] [address] Phone [phone] Care Team Providers Care Solution Architect Name Role Phone Priya Keith MD Primary Care Provider [phone] Reason for Visit * Reason Comments NEW PATIENT Right inguinal herni a * Evaluate & Treat - Unlimited Visits (Within 10 days (routine)) - Authorized Specialty Diagnoses / Procedures Referred By Debora heath Referred To Contact General Surgery Diagnoses Right inguinal hernia Alysia Evangelista PA-C [address] [place] [address] Referral ID Status Reason Start Date Expiration Date Visits Requested Visits Authorized [id number] Authorized Specialty Services Required 06/16/2024 [id number] Encounter Details Date Type Department Care Team (Late st Contact Info) Description 06/20/2024 2:00 PM EDT Office Visit General Surgery, [facility] [address] [id number] Ole Lee MD [address] [place] [address] Right inguinal hernia*; Umbilical hernia without obstruction and without gangrene; Pre-op examination Allergies No known active allergiesdocumented as of this encounter (statuses as of 06/20/2024) Medications Medication Sig Dispensed Refills Start Date [...] as of this encounter (statuses as of 06/20/2024) Active Problems Problem Noted Date Diagnosed Date Right inguinal hernia 06/20/2024 Umbilical hernia without obstruction and without gangrene 06/20/2024 Benign paroxysmal vertigo of left ear 07/17/2023 History of lower GI bleeding 07/17/2023 Vascular ectasia of colon 07/17/2023 History of anemia 07/17/2023 Coronary artery disease invo lving [place] coronary artery of [place] heart without angina pectoris 01/11/2023 Dyslipidemia, goal [...] as of this encounter (statuses as of 06/20/2024) Resolved Problems Problem Noted Date Diagnosed Date [...] as of this encounter (statuses as of 06/20/2024) Immunizations Name Administration Dates Next Due COVID-19 mRNA, LNP-s, No Pre serve, 2-Dose Series (Pfizer) 01/07/2021,12/16/2020 Pneumococcal Conjugate Vacc, 13 Valent (Prevnar) 05/03/2017 Pneumococcal Polysaccharide PPV23 (Pneumovax) Season Influenza, Quad, PF, Adjuvanted, 65+ Yrs, IM (FLUAD) 07/08/2020 Seasonal Influenza, High Dos e, Trivalent, PF, IM (Fluzone HD) 06/16/2024 Seasonal Influenza, PF, 6 M & above, IM , (FluLaval or Fluzone) 07/13/2022,07/04/2018 Seasonal Influenza, Quadrivalent Hd (Fluzone Hd) 10/26/2023,07/08/2021 Seasonal Influenza, Trivalen t, (IIV3), with Preserv, (Fluzone) 07/03/2013,08/09/2010 Seasonal Influenza, Trivalen t, Adjuvanted, 65+ YRS, [...] Average Number of Drinks 1 or 2 10/08/2 020 Frequency of Binge Drinking Not asked [...] on file documented as of this encounter Last Filed Vital Signs Vital Sign Reading Time Taken Comments Blood Pressure 150/68 06/20/2024 1:52 PM EDT Pulse 55 06/20/2024 1:52 PM EDT Temperature 36.3 C (97.3 F) 06/20/2024 1:52 PM ED T Respiratory Rate - - Oxygen Saturation - - Inhaled Oxygen Concentration - - Weight 70.7 kg (155 lb 12.8 oz) 06/20/2024 1:52 PM EDT Height - - Body Mass Index 22.68 01/24/2024 1:09 PM EDT documented in this encounter Progress Notes * Ole Lee MD - 06/20/2024 2:11 PM EDT CC- Chief Complaint Patient presents with NEW PATIENT Right inguinal hernia Ref: ELIANA SAMUEL[[id number]] [address] [facility] [place] [address] (office) [phone] (fax) HPI.: Vaibhav Magaña is a 84 year old male seen in consultation for a right inguinal hernia. Symptoms have been present for a few years duration. Sxs did not start at work. Pain is intermittent and radiating to groin. Lump is reducible. He has no Sxs of chronic constipation,chronic cough,difficulty urinating. Past Medical History Past Medical History: Diagnosis Date Benign neoplasm of colon 07/07/2011 diverticulosis, one 5 mm polyp, path shows adenomatous tissue repeat in 3years Diverticulosis of colon (without mention of hemorrhage) Impotence of organic origin Historical Varicose veins of lower extremities with complications Historical Vertigo Past Surgical History Past Surgical History: Procedure Laterality Date COLONOSCOPY W/ LESION REMOVAL, SNARE 07/07/2011 diverticulosis, one 5 mm polyp, path shows adenomatous tissue repeat in 3years COLONOSCOPY W/ SUBMUCOUS INJ 07/07/2011 COLONOSCOPY, DIAGNOSTIC (RECTUM) 02/05/2014 inflammatory tissue on bx, diverticulosis, repeat 5 yrs/COLONOSCOPY FLEXIBLE PROXIMAL DIAGNOSTIC performed by Eliana Samuel DO at ENDOSCOPY [facility] COLONOSCOPY, DIAGNOSTIC (RECTUM) 07/04/2019 diverticulosis, 5yr repeat-COLONOSCOPY FLEXIBLE PROXIMAL DIAGNOSTIC performed by Eliana Samuel DO at ENDOSCOPY [facility] COLONOSCOPY, DIAGNOSTIC (RECTUM) 04/24/2022 fair prep, diverticulosis, old blood - entire colon / INPT [facility] COLONOSCOPY, DIAGNOSTIC (RECTUM) 04/13/2022 colonic angioectasias, diverticulosis, repeat 5 yrs / [facility] EGD, FLEXIBLE, DIAGNOSTIC 08/29/2012 UPPER GI ENDOSCOPY DIAGNOSTIC performed by Eliana Samuel DO at [facility]; mild esophageal irriatation, no Barretts EGD, FLEXIBLE, DIAGNOSTIC 08/15/2021 z-line irregular, 40cm from incisors, gastritis / biopsiesmild inflammation without any worrisome features / ESOPHAGOGASTRODUODENOSCOPY (EGD), FLEXIBLE, TRANSORAL, DIAGNOSTIC performed by Eliana Samuel DO at ENDOSCOPY [facility] EGD, FLEXIBLE, INSERT WIRE, PASS DILATOR 08/02/2011 bxspath shows reflux esophagitis neg for Barretts esophagitis INJECT DX/THER SUBSTANCE INTERLAMINAR CERVICAL/THORACIC W IMAGE GUIDE 03/29/2021 INJECTION SPINE LUMBAR CERVICAL OR THORACIC performed by Adam Blanchard DO at OR [facility] INJECT DX/THER SUBSTANCE INTERLAMINAR CERVICAL/THORACIC W IMAGE GUIDE 08/04/2021 INJECTION SPINE LUMBAR CERVICAL OR THORACIC performed by Adam Blanchard DO at OR [facility] LASERING OF SECONDARY CATARACT Bilateral 01/12/2021 Jarrodjuve Silvah OTHER ACT 112 signed, 05/03/2021 REMOVAL OF APPENDIX 1976 Appendectomy REMOVE CATARACT, INSERT LENS PROSTH Left 11/11/2020 LEFT EXTRACAPSULAR CATARACT REMOVAL WITH INTRAOCULAR LENS performed by Pk Chapa MD at OR [facility] REMOVE CATARACT, INSERT LENS PROSTH Right 11/23/2020 right EXTRACAPSULAR CATARACT REMOVAL WITH INTRAOCULAR LENS performed by Pk Chapa MD at OR [facility] RMV LSN SCLP,NCK,EXT 1.1-2.0CM 03/08/2006 Excision of a lipoma back of neck right side in office by Dr. Hidalgo UNLISTED LAPAROSCOPY;HERNIA 01/06/2005 lap repair of L direct hernia w/mesh Dr Hidalgo Medications: Current Outpatient Medications Medication Sig Dispense Refill [facility] Natural Products (OSTEO BI-FLEX ADV TRIPLE ST) Tablet Take by mouth 1 Tablet daily . Aspirin EC 81 MG Oral Tablet Delayed Release Take by mouth 1 Tablet in the morning. Fish Oil 1000 MG Oral Capsule Take 1 Capsule by mouth in the morning. amLODIPine Besylate 5 MG Oral Tablet (Norvasc) Take 1 Tablet by mouth in the morning. 90 Tablet 3 No current facility-administered medications for this visit. Allergies: Allergies as of 06/20/2024 (No Known Allergies) Family History Family History Problem Relation Name Age of Onset Heart Disorder Mother No Past Hx Father accident Cancer Sister colon Cancer Brother brain Neurological Disorder Sister MS Neurological Disorder Brother MS Eye Problems None denies fm: glaucoma, AMD, Blindness, RD Social History Social History Socioeconomic History Marital status: Spouse name: Not on file Number of children: Not on file Years of education: Not on file Highest education level: Not on file Occupational History Not on file Tobacco Use Smoking status: Former Current packs/day: 0.00 Average packs/day: 2.0 packs/day for 15.0 years (30.0 ttl pk-yrs) Types: Cigarettes Start date: 05/05/1957 Quit date: 05/05/1972 Years since quittin.1 Smokeless tobacco: Never Vaping Use Vaping status: Never Used Substance and Sexual Activity Alcohol use: Yes Comment: occ Drug use: No Sexual activity: Not on file Other Topics Concern Service Not Asked Blood Transfusions Yes Comment: Caffeine Concern Not Asked Occupational Exposure Not Asked Hobby Hazards Not Asked Sleep Concern Not Asked Stress Concern Not Asked Weight Concern Not Asked Special Diet Not Asked Back Care Not Asked Exercise Not Asked Bike Helmet Not Asked Seat Belt Not Asked Self-Exams Not Asked Social History Narrative Not on file Social Determinants of Health Financial Resource Strain: Not on file Food Insecurity: Not on file Transportation Needs: Not on file Social Connections: Unknown (03/11/2024) Social Connections How often do you feel lonely or isolated from those around you? (Adult - for ages 18 years and over): Not on file Housing Stability: Not on file ROS: GEN: no weight loss, fever, fatigue HEENT: no changes in vision or hearing, no sinus problems, no sore throat, no hoarseness RESPIRATORY: no cough, wheezing, SOB or change in breathing CARDIOVASCULAR: no exertional chest pain, dyspnea, palpitations GI: no melena or hemetemesis, no change in bowel habits, no nausea or vomiting : no dysuria, hematuria, frequency MUSCULOSKELETAL: no change in joint pains, no new arthritis PSYCHIATRIC: no significant anxiety or depression, unchanged sleep pattern HEME: no bleeding tendency, no clotting tendency NEURO: no significant headache, no seizures , no tremors SKIN: no new rashes, no itching Physical Exam: Blood pressure 150/68, pulse 55, temperature 36.3 C (97.3 F), weight 70.7 kg (155 lb 12.8 oz). Constitutional: alert, healthy, well nourished Head: normocephalic, atraumatic Eyes: conjunctiva non-injected, sclera white Neck: supple, no adenopathy Lungs: clear to auscultation, breath sounds are equal and symmetric Heart: regular rate & rhythm and no murmur, gallops or rubs Abdomen: soft, non-tender, + hernia (inguinal, right, reducible, non-tender); small reducible nontender umbilical hernia Extremities: no edema, no skin discoloration Skin: no obvious rashes or significant lesions IMP: Vaibhav Magaña is a 84 year old male with a right inguinal hernia which is currently mildly symptomatic. For this reason, I have recommended that the patient consider a hernia repair. This couldbe performed in open or laparascopic approach. We reviewed that for unilateral first time hernias, I typically recommend an open procedure due to the lower recurrence rate, lower chance of nerve injury, and essentially equivalent recovery time. He does have a small umbilical hernia as well which would be repaired at the same time during a laparoscopic procedure. Laparascopic surgery is useful in bilateral or recurrent hernias where there is a benefit seen in recovery time. Risks of laparascopic surgery including a slightly higher recurrence rate, slightly higher chance of nerve injury and possibility of injury to bowel or blood vessels were also discussed. I discussed the surgery in detail and the complications related to the surgery and the anesthesia. Risks include, but are not limited to: recurrence of the hernia, persistent pain in the groin from injury to the ilioinguinal nerve, numbness, seroma formation, bleeding, infection and mesh infection requiring mesh removal. Patient understands these risks. Expected same day nature of surgery and postoperative recovery period reviewed. Activity restrictions postoperatively to include no heavy lifting or high impact activity for four to six weeks reviewed. All questions were answered. We also reviewed the signs and symptoms of incarceration and the patient was instructed to go directly to the emergency room should this occur. Ole Lee MD 06/20/2024 documented in this encounter Nursing Notes * Angelique Goldman LPN - 06/20/2024 2:30 PM EDT [facility] Inguinal Hernia Pre-op Education Patient was seen in clinic 06/20/2024 for [facility] Inguinal Hernia preoperative education. Patient was provided with the [facility] bag with supplies needed for preoperative preparation for surgery and educated per instructions on sheet. Patient was instructed to begin preparation on 06/20/2027. The following was provided to the patient: Patient Instruction Sheet HELP Card Chlorhexidine Soap Preventing Adverse Events During Surgery Pamphlet Help Prevent Skin Infections After Surgery Patient Education Included: Boost Breeze: Patient should drink at 10:00 pm the evening before surgery and 3 hours before arrival time to the hospital on the day of their surgery. Patient has been instructed not to eat or drink anything other than Boost Breeze after midnight thenight before surgery. Antibacterial soap or wipes: Provided and instructed to use evening prior and morning of surgery. The leave the soap on skin for 2 minutes and to not apply any lotions, creams, powders or deodorant after showering. Reviewed deep breathing and coughing exercises. Smoking cessation education not applicable. . Preop testing reviewed with patient by provider (see screening labs and procedures ordered prior tosurgery). Ambulation requirements prior to surgery: Encouraged to walk twice a day for at least 10 minutes. Postoperative activity restrictions: No lifting, pushing or pulling greater than 10 pounds for minimum of 6 weeks post-op. Discharge Needs Assessment: Not applicable. Patient has been or will be instructed by the preadmisison testing nurse on which medications should be held prior to surgery. [facility] written instructions were provided to patient along with contact information for nurse and clinic. Patient encouraged to contact nurse with any questions or concerns. Patient verbalized understanding. * Angelique Goldman LPN - 06/20/2024 1:52 PM EDT Chief Complaint Patient presents with NEW PATIENT Right inguinal hernia Patient states hernia has been there for a while but it is getting worse. documented in this encounter Miscellaneous Notes * Addendum Note - Angelique Goldman LPN - 06/20/2024 2:17 PM EDTAddended by: ANGELIQUE GOLDMAN on: 06/20/2024 02:17 PM Modules accepted: Orders documented in this encounter Plan of Treatment Upcoming Encounters Date Type Department Care Team (Latest Contact Info) Description 06/20/2024 2:50 PM EDT [facility] [address] [phone] TerryA[facility] [place] [address] [id number] Arrived 07/22/2024 7:45 AM EDT Hospital Encounter [facility], Operating Room [facility] [address] [phone] Ole Lee MD [address] [place] [address] 07/22/2024 7:45 AM EDT - 07/22/2024 9:18 AM EDT Surgery OR [facility], Operating Room [facility] [address] [place] [address] Ole Lee MD [address] [place] [address] LAPAROSCOPIC REPAIR INGUINAL HERNIA INITIAL 08/06/2024 11:45 AM EST Office Visit General Surgery, [facility] [address] [place] [address] Ole Lee MD [address] [place] [address] 08/15/2024 2:00 PM EST Office Visit Cardiology, [facility] [address] [place] [address] Shruti Friedman PA-C [address] [place] [address] 09/05/2024 2:00 PM EST Office Visit General Internal Medicine [facility] [address] [place] [address] Priya Keith MD [address] [facility] [address] [address] [place] [address] Scheduled Orders Name Type Priority Associated Diagnoses Orde r Schedule EKG EKG Routine Pre-op examination Expected: 06/20/2024 (Approximate), Expires: 07/20/2025 CBC Lab Routine Pre-op examination Expected: 06/20/2024, Expires: 06/20/2025 COMPREHENSIVE METABOLIC PANEL Lab Routine Pre-op examination Expected: 06/20/2024, Expires: 06/20/2025 Scheduled Procedures Name Priority Associated Diagnoses Date/Ti me LAPAROSCOPIC REPAIR INGUINAL HERNIA INITIAL Right inguinal [...] COVID-19 Vaccine ( season) 2024 01/07/2021, 12/16/2020 GFR 09/10/2024 09/10/2023, 04/24, 12/28/2022, Additional history exists Depression Screening 10/26/2024 10/26/2023 Albumin/Creatinine Ratio 01/11/2025 01/11/2022 Colonoscopy 04/24/2027 04/24/2022, 08/0 09/2021, 04/13/2022, Additional history exists DTap/Tdap Vaccines (2 - Td or Tdap) 01/06/2029 01/06/2019, 02/16/2009 Pneumococcal Vaccine: 65+ Years Completed 05/03/2017, 01/06/2009 Zoster Vaccines Completed 06/14/2020, 04/08/2020 VITAMIN D LEVEL ONCE IN A LIFETIME-USE SMARTSET# [id number] Completed 01/28/2021, 06/20/2017, 02/12/2014, Additional history exists [...] this encounter Medical Devices Implanted Type Area Senior Interactive Developer Device Identifier Shelf Expiration Date Model / Serial / Lot Envista Toric [id number] Se +22.0 Cyl 2.00 Implanted:Qty: 1 on 11/11/2020 by Pk Chapa MD at OR [facility] Left: Eye 04/23/2021 [id number] / [id number] / [id number] Toric 200 21.5 Implanted:Qty: 1 on 11/23/2020 by Pk Chapa MD at OR [facility] Right: Eye 06/23/2021 [id number] / [id number] / documented as of this encounter Visit Diagnoses Diagnosis Right inguinal hernia- Primary Inguinal hernia without mention of obstruction or gangrene, unilateral or unspecified, (not specified as recurrent) Umbilical hernia without obstruction and without gangrene Pre-op examination Preoperative examination, unspecified Right inguinal hernia Inguinal hernia without mention of obstruction or gangrene, unilateral or unspecified, (not specified as recurrent) Umbilical hernia without obstruction and without gangrene Right inguinal hernia Inguinal hernia without mention of obstruction or gangrene, unilateral or unspecified, (not specified as recurrent) Umbilical hernia without obstruction and without gangrene documented in this encounter Care Teams Solution Architect Relationship Specialty Start Date End Date Priya Keith MD [address] [place] [address] PCP - General Internal Medicine 01/24/24 documented as of this encounter
--- OUTSIDE RECORDS SUMMARY | 2024-11-21 09:30 | External Medical Summary | Summary of Care ---
Author Name Unknown Organization [facility] Address [address] [place] [address] Phone [phone] Care Team Providers Care Beef Pusher Name Role Phone Priya Keith MD Primary Care Provider [phone] Reason for Visit * Reason Comments NEW PATIENT Right inguinal herni a * Evaluate & Treat - Unlimited Visits (Within 10 days (routine)) - Authorized Specialty Diagnoses / Procedures Referred By Debora heath Referred To Contact General Surgery Diagnoses Right inguinal hernia Alysia Evangelista PA-C [address] [place] [address] Referral ID Status Reason Start Date Expiration Date Visits Requested Visits Authorized [id number] Authorized Specialty Services Required 06/16/[phone] Encounter Details Date Type Department Care Team (Late st Contact Info) Description 06/20/2024 2:00 PM EDT Office Visit General Surgery, [facility] [address] [address] Ole Lee MD [address] [place] [address] Right inguinal hernia*; Umbilical hernia without obstruction [...] anemia 07/17/2023 Coronary artery disease invo lving [place] coronary artery of [place] heart without angina pectoris 01/11/2023 Dyslipidemia, goal [...] NEW PATIENT Right inguinal hernia Ref: ELIANA PARK[[id number]] 132 [facility] [place] [address] (office) [phone] (fax) HPI.: Vaibhav Magaña is a 84 [...] yrs/COLONOSCOPY FLEXIBLE PROXIMAL DIAGNOSTIC performed by Eliana Park DO at ENDOSCOPY [facility] COLONOSCOPY, DIAGNOSTIC (RECTUM) 07/04/2019 diverticulosis, 5yr repeat-COLONOSCOPY FLEXIBLE PROXIMAL DIAGNOSTIC performed by Eliana Park DO at ENDOSCOPY [facility] COLONOSCOPY, DIAGNOSTIC (RECTUM) 04/24/2022 fair prep, diverticulosis, old blood - entire colon / INPT [facility] COLONOSCOPY, DIAGNOSTIC (RECTUM) 04/13/2022 colonic angioectasias, diverticulosis, repeat 5 yrs / [facility] EGD, FLEXIBLE, DIAGNOSTIC 08/29/2012 UPPER GI ENDOSCOPY DIAGNOSTIC performed by Eliana Park DO at ENDOSCOPY [facility]; mild esophageal irriatation, no Barretts EGD, FLEXIBLE, DIAGNOSTIC 08/15/2021 z-line irregular, 40cm from incisors, gastritis / biopsiesmild inflammation without any worrisome features / ESOPHAGOGASTRODUODENOSCOPY (EGD), FLEXIBLE, TRANSORAL, DIAGNOSTIC performed by Eliana Park DO at ENDOSCOPY [facility] EGD, FLEXIBLE, INSERT WIRE, PASS DILATOR 08/02/2011 bxspath shows reflux esophagitis neg for Barretts esophagitis INJECT DX/THER SUBSTANCE INTERLAMINAR CERVICAL/THORACIC W IMAGE GUIDE 03/29/2021 INJECTION SPINE LUMBAR CERVICAL OR THORACIC performed by Adam Blanchard DO at OR [facility] INJECT DX/THER SUBSTANCE INTERLAMINAR CERVICAL/THORACIC W IMAGE GUIDE 08/04/2021 INJECTION SPINE LUMBAR CERVICAL OR THORACIC performed by Adam Blanchard DO at OR [facility] LASERING OF SECONDARY CATARACT Bilateral 01/12/2021 Jarrodjuve Silvah OTHER ACT 112 signed, 05/03/2021 REMOVAL OF APPENDIX 1976 Appendectomy REMOVE CATARACT, INSERT LENS PROSTH Left 11/11/2020 LEFT EXTRACAPSULAR CATARACT REMOVAL WITH INTRAOCULAR LENS performed by Pk Chapa MD at OR [facility] REMOVE CATARACT, INSERT LENS PROSTH Right 11/23/2020 right EXTRACAPSULAR CATARACT REMOVAL WITH INTRAOCULAR LENS performed by Pk Chapa MD at OR [facility] RMV LSN SCLP,NCK,EXT 1.1-2.0CM 03/08/2006 Excision of a lipoma back of neck right side in office by Dr. Hidalgo UNLISTED LAPAROSCOPY;HERNIA 01/06/2005 lap repair of L direct hernia w/mesh Dr Hidalgo Medications: Current Outpatient Medications Medication Sig Dispense Refill [facility] Natural Products (OSTEO BI-FLEX ADV TRIPLE ST) [...] in this encounter Nursing Notes * Angelique Alva LPN - 06/20/2024 2:30 PM EDT [facility] [...] or concerns. Patient verbalized understanding. * Angelique Alva LPN - 06/20/2024 1:52 PM EDT Chief Complaint Patient presents with NEW PATIENT Right inguinal hernia Patient states hernia has been there for a while but it is getting worse. documented in this encounter Miscellaneous Notes * Addendum Note - Angelique Alva LPN - 06/20/2024 2:17 PM EDTAddended by: ANGELIQUE ALVA on: 06/20/2024 02:17 PM Modules accepted: Orders documented in this encounter Plan of Treatment Upcoming Encounters Date Type Department Care Team (Late st Contact Info) Description 08/06/2024 11:45 AM EST Office Visit General Surgery, [facility] [address] [address] [address] Ole Lee MD [address] [place] [address] 08/15/2024 2:00 PM EST Office Visit Cardiology, [facility] [address] [place] [address] [address] Shruti Friedman PA-C [address] [place] [address] 09/05/2024 2:00 PM EST Office Visit General Internal Medicine [facility] [address] [facility] [place] [address] Priya Keith MD 200 [facility] [place] [address] Scheduled Orders Name Type Priority Associated Diagnoses Orde r Schedule EKG EKG Routine Pre-op examination Expected: 06/20/2024 (Approximate), Expires: 07/20/2025 CBC Lab Routine Pre-op examination Expected: 06/20/2024, Expires: 06/20/2025 COMPREHENSIVE METABOLIC PANEL Lab Routine Pre-op examination Expected: 06/20/2024, Expires: 06/20/2025 Scheduled Procedures Name Priority Associated Diagnoses Date/Ti me LAPAROSCOPIC REPAIR INGUINAL HERNIA INITIAL Right inguinal hernia Umbilical hernia without obstruction and without gangrene COLONOSCOPY FLEXIBLE PROXIMA L DIAGNOSTIC Recall History of colon polyps Health [...] D LEVEL ONCE IN A LIFETIME-USE SMARTSET# 43420 Completed 01/28/2021, 06/20/2017, 02/12/2014, Additional history exists [...] this encounter Medical Devices Implanted Type Area Cook Fast Food Device Identifier Shelf Expiration Date Model / Serial / Lot Envista Toric [id number] Se +22.0 Cyl 2.00 Implanted:Qty: 1 on 11/11/2020 by Pk Chapa MD at OR [facility] Left: Eye 04/23/2021 [id number] / [id number] / [id number] Toric 200 21.5 Implanted:Qty: 1 on 11/23/2020 by Pk Chapa MD at OR [facility] Right: Eye 06/23/2021 [id number] / [id number] / documented as of this encounter Visit Diagnoses Diagnosis Right inguinal hernia- Primary Inguinal hernia without mention of obstruction or gangrene, unilateral or unspecified, (not specified as recurrent) Umbilical hernia without obstruction and without gangrene Pre-op examination Preoperative examination, unspecified documented in this encounter Care Teams Beef Pusher Relationship Specialty Start Date End Date Priya Keith MD 200 [facility] [place] [address] PCP - General Internal Medicine 01/24/24 documented as of this encounter
--- OUTSIDE RECORDS SUMMARY | 2024-11-21 09:30 | External Medical Summary | Summary of Care ---
Author Name Unknown Organization [facility] Address [address] [place] [address] Phone [phone] Care Team Providers Care Skiver Blockers Name Role Phone Priya Keith MD Primary Care Provider [phone] Reason for Referral * Evaluate & Treat - Unlimited Visits (Within 10 days (routine)) - Authorized Specialty Diagnoses / Procedures Referred By Debora heath Referred To Contact General Surgery Diagnoses Right inguinal hernia Alysia Evangelista PA-C [address] [place] [address] Referral ID Status Reason Start Date Expiration Date Visits Requested Visits Authorized [id number] Authorized Specialty Services Required 06/16/[phone] Question Answer Referral Priority Within 10 days (routine) Where should this appointment be scheduled? [facility] What condition is the patient being seen for? General Surgery Conditions What condition is the patient being seen for? Hernia (excluding Hiatal) Reason for Visit * Reason Onset Date Comments Acute Patient c/o carlitos ia in right groin area - reports it has been there for quite some time but is now becoming more of a problem. Has grown in size since originally presenting. Is causing quite a bit of pain. Medication Administration 06/16/2024 Flu an d/or Pneumo Inj Encounter Details Date Type Department Care Team (Late st Contact Info) Description 06/16/2024 1:00 PM EDT Office Visit General Internal Medicine [facility] [address] [place] [address] [address] Alysia Evangelista PA-C [address] [place] [address] [address] Right inguinal hernia*; Need for prophylactic vaccination and inoculation against influenza Allergies No known active allergiesdocumented as of this encounter (statuses as of 06/16/2024) Medications Medication Sig Dispensed Refills Start Date [...] the morning. 90 Tablet 3 02/20/2024 Active Doxycycline Hyclate 100 MG Oral CapsuleIndication s:Rosacea TAKE ONE CAPSULE BY MOUTH EVERY MORNING 90 Capsule 3 12/21/2023 06/16/2024 Discontinued (Medication List Clean Up) Gabapentin 100 MG Oral Capsule (Neurontin) Take 1 Capsule by mouth at bedtime in 1 week increase to 2 capsules 60 Capsule 5 01/24/2024 06/16/2024 Discontinued (Medication List Clean Up) documented as of this encounter (statuses as of 06/16/2024) Active Problems Problem Noted Date Diagnosed Date Benign paroxysmal vertigo of left ear 07/17/2023 History of lower GI bleeding 07/17/2023 Vascular ectasia of colon 07/17/2023 History of anemia 07/17/2023 Coronary artery disease invo lving [place] coronary artery of [place] heart without angina pectoris 01/11/2023 Dyslipidemia, goal [...] as of this encounter (statuses as of 06/16/2024) Resolved Problems Problem Noted Date Diagnosed Date [...] as of this encounter (statuses as of 06/16/2024) Immunizations Name Administration Dates Next Due COVID-19 [...] Sign Reading Time Taken Comments Blood Pressure 136/58 06/16/2024 1:03 PM EDT Pulse 59 06/16/2024 1:03 PM EDT Temperature 36.1 C (97 F) 06/16/2024 1:03 PM EDT Respiratory Rate - - Oxygen Saturation 100% 06/16/2024 1:03 PM EDT Inhaled Oxygen Concentration - - Weight 70.5 kg (155 lb 8 oz) 06/16/2024 1:03 PM EDT Height - - Body Mass Index 22.64 01/24/2024 1:09 PM EDT documented in this encounter Patient Instructions * Patient Instructions* Joy Burgos MED ASSIST - 06/16/2024 1:07 PM EDT ~~PATIENT INSTRUCTIONS FOR FLU SHOT~~ Possible side effects of influenza vaccine, (flu shot), are usually mild and include: 1. Soreness or redness at injection site 2. Low grade fever 3. Body aches You may use Tylenol/Acetaminophen as needed for these symptoms. LET YOUR DOCTOR KNOW IMMEDIATELY IF YOU HAVE DIFFICULTY BREATHING OR SWALLOWING, EXPERIENCE ITCHINGOF FEET OR HANDS, HAVE SWELLING OF EYES, FACE OR INSIDE OF NOSE. documented in this encounter Progress Notes * Alysia Evangelista PA-C - 06/16/2024 1:07 PM EDT Images from the original note were not included. History of Present Illness Vaibhav Magaña is a 84 year old male that presents for Acute (Patient c/o hernia in right groin area - reports it has been there for quite some time but is now becoming more of a problem. Has grown in size since originally presenting. Is causing quite a bit of pain.) and Medication Administration (Flu and/or Pneumo Inj) Pt here today for an acute visit with c/o worsening hernia in groin. Reports hernia has been there for approx 5 years, but seems to be growing in size and causing more symptoms. Feels a burning upon standing. Pt denies dysuria, hematuria, fever/chills, or change in Bms. Review of Systems: See HPI for pertinent positives. All other review of systems is negative. Physical Exam Vitals: 06/16/24 1303 Temp: 36.1 C (97 F) Pulse: 59 SpO2: 100% BP: 136/58 Physical Exam Constitutional: General: He is not in acute distress. Appearance: He is not diaphoretic. Cardiovascular: Rate and Rhythm: Normal rate and regular rhythm. Pulmonary: Effort: Pulmonary effort is normal. Breath sounds: Normal breath sounds. Abdominal: General: Bowel sounds are normal. Palpations: Abdomen is soft. Hernia: A hernia is present. Hernia is present in the right inguinal area. Skin: General: Skin is warm and dry. Neurological: General: No focal deficit present. Mental Status: He is alert. Mental status is at baseline. I have reviewed the following results: Assessment and Plan Right inguinal hernia Refer to gen surg to discuss hernia repair. - SURGERY REFERRAL OP Need for prophylactic vaccination and inoculation against influenza Flu vac given today. - INFLUENZA VAC., TRIVALENT, HD, PF, 65 AND ABOVE, 0.5 ML IM (FLUZONE HD) Wrap-Up Follow Up: Return in about 6 weeks (around 07/28/2024) for Return with Physician. | For: Return withPhysician | Check-out note: Routine f/up appt with Dr. Keith in 6 weeks. Time: I spent a total of 20-29 minutes (exact time 22 mins) on the date of service in preparation, delivery, and documentation of the care provided to Vaibhav Magaña excluding any time spent in the performance of separately billed services. * Joy Burgos MED ASSIST - 06/16/2024 1:07 PM EDT PRE - ADMINISTRATION DOCUMENTATION Are you experiencing any cold symptoms or fever? No Have you had Guillain-Belfast Syndrome (an illness that causes paralysis) within the last 6 weeks? No Have you had the flu shot in the past? YES Have you ever had a reaction to the flu shot? No MEGHAN Nina, 06/16/2024 1:07 PM Immunization Administration Documentation Time Out Procedure Performed: Yes Patient Identified (Ask Name/Date of ): Yes Does the patient have a fever greater than 101 degrees today? No Patient allergic to latex? No VFC Stock: No Immunization(s) verified: Yes, Immunization Name: Flu, VIS Sheet(s) given: Yes Verified Side and Site: Yes Verified Shot(s) with Parent(s)/Patient: Yes documented in this encounter Nursing Notes * Joy Burgos MED ASSIST - 06/16/2024 1:06 PM EDT Chief Complaint Patient presents with Acute Patient c/o hernia in right groin area - reports it has been there for quite some time but is now becoming more of a problem. Has grown in size since originally presenting. Is causing quite a bit of pain. documented in this encounter Plan of Treatment Upcoming Encounters Date Type Department Care Team (Late st Contact Info) Description 06/20/2024 2:00 PM EDT Office Visit General Surgery, [facility] [address] [place] [address] Ole Lee MD [address] [place] [address] 08/15/2024 2:00 PM EST Office Visit Cardiology, [facility] [address] [place] [address] Shruti Friedman PA-C [address] [place] [address] 09/05/2024 2:00 PM EST Office Visit General Internal Medicine [facility] [address] [place] [address] Priya Keith MD 200 [facility] [place] [address] Scheduled Procedures Name Priority Associated Diagnoses Date/Ti az COLONOSCOPY FLEXIBLE PROXIMAL DIAGNOSTIC Recall History of colon polyps Scheduled Referrals Name Type Priority Associated Diagnoses Orde r Schedule SURGERY REFERRAL OP Referral Within 10 da ys (routine) Right inguinal hernia Ordered: 06/16/2024 Health Maintenance Due Date Last Done Comments *BISPHONATE OR OTHER ACCEPTABLE MEDICATION NEEDED FOR OSTEOPOROSIS (REFER TO SMARTSET #1146) 01/09/2019 DXA Scan 05/15/2019 05/15/2017, 06/25, 07/17/2011, Additional history exists Adult Wellness Visit 07/01/2022 07/01/2021 COVID-19 Vaccine ( season) 2024 01/07/2021, 12/16/2020 Postponed from 05/25/2024 (Unavailable) GFR 09/10/2024 09/10/2023, 04/24, 12/28/2022, Additional history exists Depression Screening 10/26/2024 10/26/2023 Albumin/Creatinine Ratio 01/11/2025 01/11/2022 Colonoscopy 04/24/2027 04/24/2022, 08/09/2021, 04/13/2022, Additional history exists DTap/Tdap Vaccines (2 - Td or Tdap) 01/06/2029 01/06/2019, 02/16/2009 Pneumococcal Vaccine: 65+ Years Completed 05/03/2017, 01/06/2009 Zoster Vaccines Completed 06/14/2020, 04/08/2020 VITAMIN D LEVEL ONCE IN A LIFETIME-USE SMARTSET# 98619 Completed 01/28/2021, 06/20/2017, 02/12/2014, Additional history exists [...] this encounter Medical Devices Implanted Type Area Web Site Project Manager Device Identifier Shelf Expiration Date Model / Serial / Lot Dave Infante [id number] Se +22.0 Cyl 2.00 Implanted:Qty: 1 on 11/11/2020 by Pk Chapa MD at OR [facility] Left: Eye 04/23/2021 [id number] / [id number] / [id number] Toric 200 21.5 Implanted:Qty: 1 on 11/23/2020 by Pk Chapa MD at OR [facility] Right: Eye 06/23/2021 [id number] / [id number] / documented as of this encounter Visit Diagnoses Diagnosis Right inguinal hernia- Primary Inguinal hernia without mention of obstruction or gangrene, unilateral or unspecified, (not specified as recurrent) Need for prophylactic vaccination and inoculation against influenza documented in this encounter Care Teams Skiver Blockers Relationship Specialty Start Date End Date Priya Keith MD [address] [place] [address] PCP - General Internal Medicine 01/24/24 documented as of this encounter"
--- OUTSIDE RECORDS SUMMARY | 2024-11-21 09:30 | External Medical Summary | Summary of Care ---
Author Name Unknown Organization [facility] Address [address] [place] [address] Phone [phone] Care Team Providers Care Internet Assessor Name Role Phone Priya Keith MD Primary Care Provider [phone] Reason for Visit * Reason Comments NEW PATIENT Right inguinal herni a * Evaluate & Treat - Unlimited Visits (Within 10 days (routine)) - Authorized Specialty Diagnoses / Procedures Referred By Debora heath Referred To Contact General Surgery Diagnoses Right inguinal hernia Alysia Evangelista PA-C [address] [place] [address] Referral ID Status Reason Start Date Expiration Date Visits Requested Visits Authorized [id number] Authorized Specialty Services Required 06/16/[phone] Encounter Details Date Type Department Care Team (Late st Contact Info) Description 06/20/2024 2:00 PM EDT Office Visit General Surgery, [facility] [address] [address] Ole Lee MD [address] [place] [address] Right inguinal hernia*; Umbilical hernia without obstruction [...] anemia 07/17/2023 Coronary artery disease invo lving [place] coronary artery of [place] heart without angina pectoris 01/11/2023 Dyslipidemia, goal [...] NEW PATIENT Right inguinal hernia Ref: ELIANA SAMUEL[[id number]] 132 [facility] [place] [address] (office) [phone] (fax) HPI.: Vaibhav Magaña is a 84 [...] performed by Eliana Samuel DO at ENDOSCOPY [facility] COLONOSCOPY, DIAGNOSTIC (RECTUM) 07/04/2019 diverticulosis, 5yr repeat-COLONOSCOPY FLEXIBLE PROXIMAL DIAGNOSTIC performed by Eliana Samuel DO at ENDOSCOPY [facility] COLONOSCOPY, DIAGNOSTIC (RECTUM) 04/24/2022 fair prep, diverticulosis, old blood - entire colon / INPT [facility] COLONOSCOPY, DIAGNOSTIC (RECTUM) 04/13/2022 colonic angioectasias, diverticulosis, repeat 5 yrs / [facility] EGD, FLEXIBLE, DIAGNOSTIC 08/29/2012 UPPER GI ENDOSCOPY DIAGNOSTIC performed by Eliana Samuel DO at ENDOSCOPY [facility]; mild esophageal irriatation, no Barretts EGD, FLEXIBLE, DIAGNOSTIC 08/15/2021 z-line irregular, 40cm from incisors, gastritis / biopsiesmild inflammation without any worrisome features / ESOPHAGOGASTRODUODENOSCOPY (EGD), FLEXIBLE, TRANSORAL, DIAGNOSTIC performed by Eliana Samuel DO at ENDOSCOPY [facility] EGD, FLEXIBLE, INSERT WIRE, PASS DILATOR 08/02/2011 bxspath shows reflux esophagitis neg for Barretts esophagitis INJECT DX/THER SUBSTANCE INTERLAMINAR CERVICAL/THORACIC W IMAGE GUIDE 03/29/2021 INJECTION SPINE LUMBAR CERVICAL OR THORACIC performed by Adam Blanchard DO at OR [facility] INJECT DX/THER SUBSTANCE INTERLAMINAR CERVICAL/THORACIC W IMAGE GUIDE 08/04/2021 INJECTION SPINE LUMBAR CERVICAL OR THORACIC performed by Adam Blanchard DO at OR [facility] LASERING OF SECONDARY CATARACT Bilateral 01/12/2021 Jarrodjuve Silvah OTHER ACT 112 signed, 05/03/2021 REMOVAL OF APPENDIX 1976 Appendectomy REMOVE CATARACT, INSERT LENS PROSTH Left 11/11/2020 LEFT EXTRACAPSULAR CATARACT REMOVAL WITH INTRAOCULAR LENS performed by Pk Chapa MD at OR [facility] REMOVE CATARACT, INSERT LENS PROSTH Right 11/23/2020 right EXTRACAPSULAR CATARACT REMOVAL WITH INTRAOCULAR LENS performed by Pk Chapa MD at OR [facility] RMV LSN SCLP,NCK,EXT 1.1-2.0CM 03/08/2006 Excision of a lipoma back of neck right side in office by Dr. Hidalgo UNLISTED LAPAROSCOPY;HERNIA 01/06/2005 lap repair of L direct hernia w/mesh Dr Hidalgo Medications: Current Outpatient Medications Medication Sig Dispense Refill [facility] Natural Products (OSTEO BI-FLEX [...] Notes * Angelique Goldman LPN - 06/20/2024 1:52 [...] 08/15/2024 2:00 PM EST Office Visit Cardiology, [address] [place] [address] Shruti Friedman PA-C [address] [place] [address] 09/05/2024 2:00 PM EST Office Visit General Internal Medicine [facility] [address] [facility] [place], [place] [address] Priya Keith MD [address] [facility] [place], [place] [address] Scheduled Orders Name Type Priority Associated Diagnoses [...] D LEVEL ONCE IN A LIFETIME-USE SMARTSET# 27857 Completed 01/28/2021, 06/20/2017, 02/12/2014, Additional history exists [...] this encounter Medical Devices Implanted Type Area Athletic Field Custodian Device Identifier Shelf Expiration Date Model / Serial / Lot Envista Toric [id number] Se +22.0 Cyl 2.00 Implanted:Qty: 1 on 11/11/2020 by kP Chapa MD at OR [facility] Left: Eye 04/23/2021 [id number] / [id number] / [id number] Toric 200 21.5 Implanted:Qty: 1 on 11/23/2020 by Pk Chapa MD at OR [facility] Right: Eye 06/23/2021 [id number] / [id number] / documented as of this encounter Visit Diagnoses Diagnosis Right inguinal hernia- Primary Inguinal hernia without mention of obstruction or gangrene, unilateral or unspecified, (not specified as recurrent) Umbilical hernia without obstruction and without gangrene Pre-op examination Preoperative examination, unspecified documented in this encounter Care Teams Internet Assessor Relationship Specialty Start Date End Date Priya Keith MD [address] [facility] [place], [place] [address] PCP - General Internal Medicine 01/24/24 documented as of this encounter
--- OUTSIDE RECORDS SUMMARY | 2024-11-21 09:30 | External Medical Summary | Summary of Care ---
Author Name Unknown Organization [facility] Address [address] [place] [address] Phone [phone] Care Team Providers Care Photogrammetric Tech Name Role Phone Priya Keith MD Primary Care Provider [phone] Reason for Visit * Reason Comments Outpatient Testing Encounter Details Date Type Department Care Team (Late st Contact Info) Description 06/20/2024 2:50 PM EDT Laboratory Laboratory, [facility] [address] [facility] [place] [address] [facility] [address] [place] [address] Pre-op examination Allergies No known active allergiesdocumented [...] anemia 07/17/2023 Coronary artery disease invo lving [place] coronary artery of [place] heart without angina pectoris 01/11/2023 Dyslipidemia, goal [...] on file documented as of this encounter Plan of Treatment Upcoming Encounters Date Type Department Care Team (Latest Contact Info) Description 07/22/2024 7:45 AM EDT Hospital Encounter [facility] [address] [place] [address] Ole Lee MD [address] [place] [address] 07/22/2024 7:45 AM EDT - 07/22/2024 9:18 AM EDT Surgery OR [facility], [facility] [address] [place] [address] Ole Lee MD [address] [place] [address] LAPAROSCOPIC REPAIR INGUINAL HERNIA INITIAL 08/06/2024 11:45 AM EST Office Visit General Surgery, [facility] [address] [place] [address] Ole Lee MD [address] [place] [address] 08/15/2024 2:00 PM EST Office Visit Cardiology, [facility] [address] [place] [address] Shruti Friedman PA-C [address] [place] [address] 09/05/2024 2:00 PM EST Office Visit General Internal Medicine [facility] [address] [place] [address] Priya Keith MD [address] [facility] [place] [address] Pending Results Name Type Priority Associated Diagnoses Date /Time CBC Lab Routine Pre-op examination 06/20/2024 2:50 PM EDT COMPREHENSIVE METABOLIC PANEL Lab Routine Pre-op examination 06/20/2024 2:50 PM EDT Scheduled Procedures Name Priority Associated Diagnoses Date/Ti [...] D LEVEL ONCE IN A LIFETIME-USE SMARTSET# [id number] Completed 01/28/2021, 06/20/2017, 02/12/2014, Additional history exists [...] this encounter Medical Devices Implanted Type Area Cop Winder Device Identifier Shelf Expiration Date Model / Serial / Lot Envista Toric [id number] Se +22.0 Cyl 2.00 Implanted:Qty: 1 on 11/11/2020 by Pk Chapa MD at OR [facility] Left: Eye 04/23/2021 [id number] / [id number] / [id number] Toric 200 21.5 Implanted:Qty: 1 on 11/23/2020 by Pk Chapa MD at OR [facility] Right: Eye 06/23/2021 [id number] / [id number] / documented as of this encounter Visit Diagnoses Diagnosis Right inguinal hernia Inguinal hernia without mention of obstruction or gangrene, unilateral or unspecified, (not specified as recurrent) Umbilical hernia without obstruction and without gangrene Pre-op examination Preoperative examination, unspecified Right inguinal hernia Inguinal hernia without mention of obstruction or gangrene, unilateral or unspecified, (not specified as recurrent) Umbilical hernia without obstruction and without gangrene documented in this encounter Care Teams Photogrammetric Tech Relationship Specialty Start Date End Date Priya Keith MD [address] [place] [address] PCP - General Internal Medicine 01/24/24 documented as of this encounter
--- OUTSIDE RECORDS SUMMARY | 2024-11-21 09:30 | External Medical Summary ---
Author Name Unknown Address Unknown Organization [facility] [address] [place] [id number] Laboratory Report Ordering Provider Test Date Status TONI SHARPE 06/20/2024 14:50:18 Final Observation Date Value Abnormality Reference (Units ) Status WBC, Total 06/20/2024 14:50:18 4.88 4.00-10.8 0 (K/uL) Final RBC 06/20/2024 14:50:18 3.64 4.50-5.25 (M/uL) Final Hemoglobin 06/20/2024 14:50:18 11.7 Below low normal 14 .0-16.8 (g/dL) Final HCT 06/20/2024 14:50:18 35.1 Below low normal 40. 0-48.4 (%) Final MCV 06/20/2024 14:50:18 96.4 82.0-99.5 (fL) Final MCH 06/20/2024 14:50:18 32.1 27.0-34.0 (pg) Final MCHC 06/20/2024 14:50:18 33.3 32.0-36.0 (g/dL) Final RDW 06/20/2024 14:50:18 13.5 11.5-15.5 (%) Final Platelets 06/20/2024 14:50:18 154 140-400 (K /uL) Final MPV 06/20/2024 14:50:18 11.2 6.6-11.1 ( fL) Final Performing Location [facility] [address] [place] [id number]
--- OUTSIDE RECORDS SUMMARY | 2024-11-21 09:30 | External Medical Summary | Summary of Care ---
Author Name Unknown Organization [facility] Address [address] [place] [address] Phone [phone] Care Team Providers Care Technical Manager [employer] Name Role Phone Priya Keith MD Primary Care Provider [phone] Reason for Visit * Reason Comments NEW PATIENT Right inguinal herni a * Evaluate & Treat - Unlimited Visits (Within 10 days (routine)) - Authorized Specialty Diagnoses / Procedures Referred By Debora heath Referred To Contact General Surgery Diagnoses Right inguinal hernia Alysia Evangelista PA-C [address] [place] [address] Referral ID Status Reason Start Date Expiration Date Visits Requested Visits Authorized [id number] Authorized Specialty Services Required 06/16/[phone] Encounter Details Date Type Department Care Team (Late st Contact Info) Description 06/20/2024 2:00 PM EDT Office Visit General Surgery, [facility] [address] [place] [address] Ole Lee MD [address] [place] [address] Right inguinal hernia*; Umbilical hernia without obstruction [...] anemia 07/17/2023 Coronary artery disease invo lving [place] coronary artery of [place] heart without angina pectoris 01/11/2023 Dyslipidemia, goal [...] NEW PATIENT Right inguinal hernia Ref: ELIANA SAMUEL[[id number]] [address] [facility] [place] [address] (office) [phone] (fax) HPI.: Vaibhav Magaña is a 84 [...] performed by Eliana Samuel DO at ENDOSCOPY [facility] COLONOSCOPY, DIAGNOSTIC (RECTUM) 07/04/2019 diverticulosis, 5yr repeat-COLONOSCOPY FLEXIBLE PROXIMAL DIAGNOSTIC performed by Eliana Samuel DO at ENDOSCOPY [facility] COLONOSCOPY, DIAGNOSTIC (RECTUM) 04/24/2022 fair prep, diverticulosis, old blood - entire colon / INPT [facility] COLONOSCOPY, DIAGNOSTIC (RECTUM) 04/13/2022 colonic angioectasias, diverticulosis, repeat 5 yrs / [facility] EGD, FLEXIBLE, DIAGNOSTIC 08/29/2012 UPPER GI ENDOSCOPY DIAGNOSTIC performed by Eliana Samuel DO at [facility]; mild esophageal irriatation, no Barretts EGD, FLEXIBLE, DIAGNOSTIC 08/15/2021 z-line irregular, 40cm from incisors, gastritis / biopsiesmild inflammation without any worrisome features / ESOPHAGOGASTRODUODENOSCOPY (EGD), FLEXIBLE, TRANSORAL, DIAGNOSTIC performed by Eliana Samuel DO at END[facility]COPY [facility] EGD, FLEXIBLE, INSERT WIRE, PASS DILATOR 08/02/2011 bxspath shows reflux esophagitis neg for Barretts esophagitis INJECT DX/THER SUBSTANCE INTERLAMINAR CERVICAL/THORACIC W IMAGE GUIDE 03/29/2021 INJECTION SPINE LUMBAR CERVICAL OR THORACIC performed by Adam Blanchard DO at OR [facility] INJECT DX/THER SUBSTANCE INTERLAMINAR CERVICAL/THORACIC W IMAGE GUIDE 08/04/2021 INJECTION SPINE LUMBAR CERVICAL OR THORACIC performed by Adam Blanchard DO at OR [facility] LASERING OF SECONDARY CATARACT Bilateral 01/12/2021 Jarrodjuve Silvah OTHER ACT 112 signed, 05/03/2021 REMOVAL OF APPENDIX 1976 Appendectomy REMOVE CATARACT, INSERT LENS PROSTH Left 11/11/2020 LEFT EXTRACAPSULAR CATARACT REMOVAL WITH INTRAOCULAR LENS performed by Pk Chapa MD at OR [facility] REMOVE CATARACT, INSERT LENS PROSTH Right 11/23/2020 right EXTRACAPSULAR CATARACT REMOVAL WITH INTRAOCULAR LENS performed by Pk Chapa MD at OR [facility] RMV LSN SCLP,NCK,EXT 1.1-2.0CM 03/08/2006 Excision of a lipoma back of neck right side in office by Dr. Hidalgo UNLISTED LAPAROSCOPY;HERNIA 01/06/2005 lap repair of L direct hernia w/mesh Dr Hidalgo Medications: Current Outpatient Medications Medication Sig Dispense Refill [facility] [employer] (OSTEO BI-FLEX ADV TRIPLE ST) [...] 08/15/2024 2:00 PM EST Office Visit Cardiology, [address] [place] [address] Shruti Friedman PA-C [address] [place] [address] 09/05/2024 2:00 PM EST Office Visit General Internal Medicine [facility] [address] [facility] [place], [place] [address] Priya Keith MD [address] [facility] [place], [place] [address] Scheduled Orders Name Type Priority Associated Diagnoses [...] D LEVEL ONCE IN A LIFETIME-USE SMARTSET# [id number] Completed 01/28/2021, 06/20/2017, 02/12/2014, Additional history exists [...] this encounter Medical Devices Implanted Type Area Veneer Stapler Device Identifier Shelf Expiration Date Model / Serial / Lot Envista Toric Mx60t Se +22.0 Cyl 2.00 Implanted:Qty: 1 on 11/11/2020 by Pk Chapa MD at OR [facility] Left: Eye 04/23/2021 [id number] / [id number] / [id number] Toric 200 21.5 Implanted:Qty: 1 on 11/23/2020 by Pk Chapa MD at OR [facility] Right: Eye 06/23/2021 [id number] / [id number] / documented as of this encounter Visit Diagnoses Diagnosis Right inguinal hernia- Primary Inguinal hernia without mention of obstruction or gangrene, unilateral or unspecified, (not specified as recurrent) Umbilical hernia without obstruction and without gangrene Pre-op examination Preoperative examination, unspecified documented in this encounter Care Teams Technical Manager Chemical Plant Relationship Specialty Start Date End Date Priya Keith MD [address] [facility] [place], [place] [address] PCP - General Internal Medicine 01/24/24 documented as of this encounter
--- OUTSIDE RECORDS SUMMARY | 2024-11-21 09:30 | External Medical Summary ---
Author Name Unknown Address Unknown Organization [facility] [address] [place] [address] Laboratory Report Ordering Provider Test Date Status TONI SHARPE 06/20/2024 14:50:18 Final Observation Date Value Abnormality Reference (Units ) Status BUN 06/20/2024 14:50:18 23 Above high normal 6-20 (mg/dL) Final Creatinine 06/20/2024 14:50:18 1.2 0.6-1.2 (mg/dL) Final Glomerular filtration rate/1.73 sq M.predicted [Volume Rate/Area] in Serum, Plasma or Blood by Creatinine-based formula (CKD-EPI) 06/20/2024 14:50:18 61 >=60 (mL/min) Final eGFR is calculated based on the CKD-EPI 2020 equation. Sodium 06/20/2024 14:50:18 141 135-146 (m mol/L) Final Potassium 06/20/2024 14:50:18 4.5 3.5-5.1 (m mol/L) Final Cl 06/20/2024 14:50:18 103 98-107 (mm ol/L) Final CO2 06/20/2024 14:50:18 27 22-32 (mmo l/L) Final Anion gap 06/20/2024 14:50:18 11 7-15 (mmol /L) Final Glucose 06/20/2024 14:50:18 127 Above high normal 70 -120 (mg/dL) Final Albumin 06/20/2024 14:50:18 4.1 3.8-5.0 (g /dL) Final AST (Aspartate aminotransferase) 06/20/2024 14:50:18 23 10-50 (U/L) Fin al Alk Phos 06/20/2024 14:50:18 79 35-130 (U/ L) Final Bilirubin, Total 06/20/2024 14:50:18 0.3 <=1 .2 (mg/dL) Final Calcium 06/20/2024 14:50:18 9.2 8.4-10.2 ( mg/dL) Final Protein 06/20/2024 14:50:18 6.8 6.0-8.3 (g /dL) Final ALT (Alanine aminotransferase) 06/20/2024 14:50:18 20 10-50 (U/L) Jules mitchell Performing Location [facility] [address] [facility] [address]
[2024-11-21 09:43] LABS: iSTAT Hemoglobin 9.9 g/dl (14.0-18.0); iSTAT Ionized Calcium 1.16 mmol/l (1.12-1.32); iSTAT Potassium 3.9 mmol/L (3.3-5.0)
[2024-11-21] MEDS: OPTIRAY 320 100ml IV ONE (09:46)
[2024-11-21 10:00] LABS: Hematocrit (blood only) 28.5 % (42.0-52.0); Hemoglobin 9.4 g/dl (14.0-18.0); Mean Corpuscular Volume 91.1 fL (80.0-100.0); Mean Platelet Volume 11.5 fL (9.4-12.4); Platelet Count 143 K/uL (130-400); RDW Coefficient of Variation 14.1 % (11.5-14.5); RDW Standard Deviation 46.5 fL (36.4-46.3); Red Blood Count 3.13 M/uL (4.70-6.10); White Blood Count 3.58 K/ul (4.8-10.8)
[2024-11-21 10:06] LABS: Albumin Globulin Ratio 1.5 (0.9-2); Albumin Level 4.3 gm/dl (3.4-5.0); BUN Creatinine Ratio 15.4 (10-20); Bilirubin,Total 0.4 mg/dl (0.2-1.0); Calcium 9.3 mg/dl (8.6-10.3); Creatinine Clr Calc Pharmacy 51.2 ml/min; Globulin 2.9 gm/dl (2.5-4.0); Total Protein 7.2 gm/dl (6.0-8.3)
[2024-11-21 10:13] LABS: Troponin I High Sensitivity 11.9 pg/ml (0-20)
[2024-11-21 10:22] LABS: INR 0.9 (0.9-1.1); Partial Thromboplastin Time 26 Seconds (21-31); Prothrombin Time 10.2 Seconds (9.0-12.0)
--- NOTE | 2024-11-21 10:31 | CT Scan Report ---
ABDOMEN AND PELVIS CT WITH IV CONTRAST CT DOSE: 575.09 mGy.cm HISTORY: Acute generalized abdominal pain Abd pain, GI bleeding TECHNIQUE: Multiaxial CT images of the abdomen and pelvis were performed following the IV administrat ion of 95 cc of Optiray, A dose lowering technique was utilized adhering to the principles of ALARA. COMPARISON STUDY: 04/23/2022 FINDINGS: Cardiomegaly with coronary artery calcifications. Mild bibasilar mucous plugging with atele ctasis. No pneumatosis or pneumoperitoneum. Unremarkable spleen, pancreas, gallbladder, adrenal gland s and liver appear unremarkable. 6 mm right hepatic lobe cyst. Patency of the hepatic and portal vein s. Subcentimeter hypodensity of the inferior right hepatic lobe is too small to characterize. Unremarkable kidneys. No hydronephrosis. Subcentimeter probable cyst of the midpole right kidney. Mil d prostatomegaly. Urinary bladder wall thickening with partial distention. Small fat filled right ing uinal hernia. Prior left inguinal hernia repair. Atherosclerosis of the aorta without aneurysm. No ly mphadenopathy. No bowel obstruction. Mild wall thickening of the cecum with partial distention. Colonic diverticulos is without acute diverticulitis. No ascites. Tiny fat filled umbilical hernia. No acute fracture. IMPRESSION: 1. No bowel obstruction or pneumoperitoneum. 2. Colonic diverticulosis without acute diverticulitis. 3. Additional findings as above. ACT 112: Negative or not required by law. The above report was generated using voice recognition software. It may contain grammatical, syntax o r spelling errors. Electronically signed by: Nash Morataya M.D. 11/21/2024 10:29 AM
[2024-11-21] MEDS ORDERED: SODIUM CHLORIDE 0.9% 100 ML IV PRN (10:49)
[2024-11-21] MEDS ORDERED: SODIUM CHLORIDE 0.9% 50 ML IV PRN (10:49)
--- NOTE | 2024-11-21 10:59 | History & Physical Report ---
Date of Service November 21, 2024 Assessment & Plan (1) Acute GI bleeding: (2) Acute blood loss anemia: Plan This is an 84-year-old male who has significant past medical history of nonobstructive CAD, HTN, HLD, mitral valve regurgitation, vascular ectasia of the colon, history of GI bleed, GERD, Mnire's disease and history of tobacco abuse who presents to ED secondary to rectal bleeding. #Acute GIB #Acute blood loss anemia #Hx of colonic AVMS/Diverticulosis/Hemorrhoids/recent NSAID use admit to tele consult gastroenterology who is going to take pt today for EGD Keep NPO until after EGD PPI IV BID Hold ASA, absolutely no NSAIDS monitor h/h q6, transfuse Hgb < 7 unless hemodynamic instability Blood consent was obtained from the patient (or patient delegate) as delegated by Dr. Mcleod Risks and benefits were explained. All questions were answered, a nd the patient (or patient delegate) was offered the opportunity to discuss with attending physician and declined. #Transaminitis elevated AST/ALT, repeat in a.m. consider RUQ US if worsening, no specific RUQ pain #CAD #HTN #HLD #Mitral valve regurg follows [facility] no hx of coronary intervention continue amlodipine as BP allows, hold ASA DVT ppx: SCDS for now Pt was seen and examined in collaboration with Dr. Mcleod, please see addendum I spent a total of 61 minutes coordinating, documenting and providing care for this patient excluding time spent in the performance of separately billed services or time spent by another provider/QHP. History of Present Illness Chief Complaint: GIB x 1 week. Primary Care Provider: Priya Keith MD This is an 84-year-old male who has significant past medical history of nonobstructive CAD, HTN, HLD, mitral valve regurgitation, vascular ectasia of the colon, history of GI bleed, GERD, Mnire's disease and history of tobacco abuse who presents to ED secondary to rectal bleeding. His is at bedside who also helps elicit history. He states for the last week or more he had noticed black tarry stool. Since Sunday he has also noted bright red blood covering the stool and turning the toilet water red. He also notes bright red blood with wiping. He states this is occurring with every bowel movement. He reports being on aspirin daily, but did not take it today. He also reports taking 2 doses of anti-inflammatory twice daily over the last few days due to having a cough. He states when he would lay down at night he would feel something coming up his chest and then resulted in significant coughing. He was recently seen by PCP due to upper respiratory symptoms who started him on prednisone. He only took 2 doses of this. He reports having COVID several weeks ago. He does have generalized abdominal pain. He states he has had this pain for the last few years. He denies it being changed at this time. He denies requiring blood transfusion in the past. He denies any fever, chills, sweats, lightheadedness, dizziness, chest pain, shortness of breath, vomiting, hematemesis, dysuria, changes bowel or urinary habits. He has been nauseated. He also reports a chronic right inguinal hernia that has been, "causing him trouble," but is not currently painful at the time. Outpatient lab work was reviewed in which he had a hemoglobin and August 2024 which was 12.7. He also had a hemoglobin on 11/19 that was 10.4. In ED patient remained hemodynamically stable. His hemoglobin was noted to be 9.4. His CMP was generally unremarkable except for mildly elevated AST and ALT at 60 and 71. He was Hemoccult positive per ED provider. CT abdomen pelvis was performed which did not show any acute abnormality in regards to bleeding. Allergies Allergy/AdvReac Type Severity Reaction Status Date / Time No Known Allergies Allergy Unknown Verified 11/21/24 13:08 Home Medications Medication Instructions Recorded Confirmed Type amlodipine 2.5 mg tablet 5 mg PO QAM 12/06/21 11/21/24 History doxycycline monohydrate 100 mg 100 mg PO UD 12/06/21 11/21/24 History tablet glucosamine 750 [id number] 1 tab PO UD 12/06/21 11/21/24 History no1 644 mg-C 30 mg-kelly 1 mg tablet (Osteo Bi-Flex Triple Strength) aspirin 81 mg capsule 81 mg PO QAM 01/26/23 11/21/24 History omega-3 fatty acids 1,000 mg PO UD 07/15/24 11/21/24 History albuterol sulfate 90 mcg/actuation 1 puff inhalation DIRECTED PRN 11/21/24 11/21/24 History aerosol inhaler sob prednisone 20 mg tablet 20 mg PO DIRECTED 11/21/24 11/21/24 History Past Med/Surg History Problem List Acute blood loss anemia Acute GI bleeding (Acute) Lipoma of scalp HLD (hyperlipidemia) Colon polyp Encounter for pre-operative examination Mitral regurgitation Medical History Umbilical hernia Left inguinal hernia HLD (hyperlipidemia) Hx of colonic polyps History of transesophageal echocardiography (CIARA) History of GI bleed (04/2022) 04/2022- no recurrence CAD (coronary artery disease) Probable CAD, Hx abnormal stress test 12/2021: patient declined cardiac cath and decision for medical management by cardiology Hypertension GERD (gastroesophageal reflux disease) diet regulated, no medications Mitral valve regurgitation Follows with Dr. Earl; most recent ECHO 07/30/23: moderate bileaflet MVP, mod-severe mid systolic MR, mitral regurgitation jet is posteriorly directed Surgical History Hx of colonoscopy with polypectomy Hx of excision of mass x3 lipoma, neck : most recent: 05/21/23: MAC without issue History of esophagogastroduodenoscopy (EGD) Hx of left inguinal hernia repair History of appendectomy Hx of bilateral cataract extraction Family History Brother Colorectal cancer Sister Colorectal cancer Other No family history of adverse response to anesthesia Social History Smoking Status: Former smoker Tobacco Type: Cigarettes Second Hand Exposure: No; Do You Dip or Chew Tobacco: No; Hx Alcohol Use: Yes Hx Substance Use: No Preferred Language: Sinhala Communication Ability: Effective Executive Account Manager Required: No Beliefs That Will Affect Care: None Current Living Situation: Spouse Feels Safe at Home: Yes Assistive Devices: Denture - Upper and Denture - Lower Review of Systems Review of Systems: All systems reviewed & are unremarkable except as noted in HPI & below Physical Exam Physical Exam: Constitutional: WD/WN, M, vitals as above, NAD, sitting up in bed, pleasant, conversing easily Head: Normocephalic, Atraumatic Eyes: PERRL, conjunctivae normal, anicteric sclerae ENMT: external ear and nose normal, oropharynx normal Neck: trachea midline, no thyromegaly normal visual inspection Respiratory: normal respiratory effort, lungs clear to auscultation, no wheeze, rales, rhonchi. Normal insp/exp effort, no accessory muscle use Cardiovascular: RRR, 2/6 ALVARADO noted cardiac apex, no edema Vessels: no JVD or carotid bruit Chest: normal inspection of chest Abdomen: normal bowel sounds, soft, nontender, no hepatosplenomegaly Musculoskeletal: no cyanosis or clubbing, AROM x 4 Skin: no rashes, warm and dry normal turgor Neurologic: PERRL, EOMI, accommodation nl, no face palsy, no dysarthria CN's II-XI intact bilaterally and moves all extremities Psychiatric: A+Ox3, euthymic affect : deferred Results & Data Results & Data Vital Signs (Past 12 Hours) Vital Signs Temp Pulse Pulse Resp BP BP Pulse Ox 11/21/24 09:19 75 18 97 11/21/24 09:19 75 18 146/71 H 97 11/21/24 08:23 36.3 C L 73 18 171/62 H 98 O2 Del Method 11/21/24 09:19 Room Air 11/21/24 09:19 Room Air 11/21/24 08:23 Room Air Laboratory Results I have independently reviewed and interpreted patient's admitting labs including CBC, CMP, PTT, PT/INR, mag and troponin. Diagnostic Findings Abdomen/Pelvis CT 11/21/24 08:[address] WITH IV CONTRAST CT DOSE: 575.09 mGy.cm HISTORY: Acute generalized abdominal pain Abd pain, GI bleeding TECHNIQUE: Multiaxial CT images of the abdomen and pelvis were performed following the IV administration of 95 cc of Optiray, A dose lowering technique was utilized adhering to the principles of ALARA. COMPARISON STUDY: 04/23/2022 FINDINGS: Cardiomegaly with coronary artery calcifications. Mild bibasilar mucous plugging with atelectasis. No pneumatosis or pneumoperitoneum. Unremarkable spleen, pancreas, gallbladder, adrenal glands and liver appear unremarkable. 6 mm right hepatic lobe cyst. Patency of the hepatic and portal veins. Subcentimeter hypodensity of the inferior right hepatic lobe is too small to characterize. Unremarkable kidneys. No hydronephrosis. Subcentimeter probable cyst of the midpole right kidney. Mild prostatomegaly. Urinary bladder wall thickening with partial distention. Small fat filled right inguinal hernia. Prior left inguinal hernia repair. Atherosclerosis of the aorta without aneurysm. No lymphadenopathy. No bowel obstruction. Mild wall thickening of the cecum with partial distention. Colonic diverticulosis without acute diverticulitis. No ascites. Tiny fat filled umbilical hernia. No acute fracture. IMPRESSION: 1. No bowel obstruction or pneumoperitoneum. 2. Colonic diverticulosis without acute diverticulitis. 3. Additional findings as above. ACT 112: Negative or not required by law. The above report was generated using voice recognition software. It may contain grammatical, syntax or spelling errors. Electronically signed by: Nash Morataya M.D. 11/21/2024 10:29 AM Medications Administered Medication List Discontinued Medications Ioversol (Optiray 320 100ml) 95 ml IV ONCE ONE Stop: 11/21/24 09:47 Last Admin: 11/21/24 09:46 Dose: 95 ml Documented By: CARLIN ECG Additional Comments: I have independently reviewed and interpreted patient's admitting EKG which revealed: NSR 6bpm, no st or t wave change +PAC, qtc 402ms COVID-19 Results Results COVID-19 Adm Lab Results: RBC 3.13 M/uL (4.70-6.10) L 11/21/24 WBC 3.58 K/ul (4.8-10.8) L 11/21/24 Hgb 9.4 g/dl (14.0-18.0) L 11/21/24 Hct 28.5 % (42.0-52.0) L 11/21/24 Plt Count 143 K/uL (130-400) 11/21/24 Na 140 mmol/L (136-145) 11/21/24 K 4.0 mmol/L (3.5-5.1) 11/21/24 Cl 108 mmol/L (98-107) H 11/21/24 CO2 28 mmol/L (21-32) 11/21/24 Anion Gap 4 (3-11) 11/21/24 BUN 16 mg/dl (6-23) 11/21/24 Creatinine 1.04 mg/dl (0.6-1.4) 11/21/24 BUN/Creatinine Ratio 15.4 (10-20) 11/21/24 Glucose Level 99 mg/dl (70-99(Fasting)) 11/21/24 Ca 9.3 mg/dl (8.6-10.3) 11/21/24 Total Bilirubin 0.4 mg/dl (0.2-1.0) 11/21/24 AST/SGOT 68 U/L (13-39) H 11/21/24 ALT/SGPT 71 U/L (7-52) H 11/21/24 Alkaline Phosphatase 74 U/L (34-104) 11/21/24 Total Protein 7.2 gm/dl (6.0-8.3) 11/21/24 Albumin 4.3 gm/dl (3.4-5.0) 11/21/24 Globulin 2.9 gm/dl (2.5-4.0) 11/21/24 Albumin/Globulin Ratio 1.5 (0.9-2) 11/21/24 PTT 26 Seconds (21-31) 11/21/24 INR 0.9 (0.9-1.1) 11/21/24 Code Status & VTE Plan Code Status FULL CODE VTE Prophylaxis Plan VTE Prophylaxis will be ordered: Yes Supervising Physician Co-Signing Physician Notes Patient is an 84-year-old female with history of colon ectasia, colon polyp, hemorrhoids, AVMs and other medical problems presents with history of melena and bright red blood per rectum since Sunday. Patient admits to take NSAIDs and also is on aspirin at home. States having significant cough and was recently prescribed prednisone by his PCP. Patient also states having some left-sided abdominal pain. Please review HPI for complete details of presentation. I personally reviewed blood work and imaging studies.Hemoglobin 9.4, hematocrit 28.5, WBC 3.58, normal platelet, INR. Mild transaminitis AST 68, ALT 71, normal alkaline phosphatase, total bilirubin. CT abdomen showed colonic diverticulosis without acute colitis. EKG showed sinus rhythm with PACs, QTc 402. Physical Exam: Vitals signs as noted above General Appearance: Thin, frail, no apparent distress Head: normocephalic, Atraumatic Eyes: normal inspection, EOMI Neck: supple, Trachea midline Respiratory/Chest: Normal breath sounds, CTA, No accessory muscle use Cardiovascular: S1, S2, +murmur Abdomen/GI:Soft, left lower quadrant tender, Bowel sounds present Extremities/Musculoskeletal:normal inspection, no edema Neurologic/Psych:AAOX3, grossly no focal neurological deficits Skin: normal color, warm Acute GI bleed/melena/BRBPR DD: Likely multifactorial secondary to peptic ulcer disease, diverticulosis, polyps, AVMs, hemorrhoids Agree with holding aspirin, prednisone, anticoagulation, avoid NSAID Continue IV PPI Monitor H&H and transfuse as needed GI consulted Further management based on EGD/colonoscopy I personally interviewed and examined the patient at bedside. I have reviewed the advanced practitioner's documentation on the date of service referred in note and agree with plan. Patient's care is coordinated with Vane Mendez. Please refer to the documentation above for details of patient's presentation and for discussion of other issues. I spent a total [id number] coordinating, documenting, and providing care for this patient excluding time spent in the performance of separately billed services or time spent by another provider/QHP.
[2024-11-21] MEDS: PANTOprazole 40 MG/10 ML SYR IV SCH (11:48)
[2024-11-21] MEDS: SODIUM CHLORIDE 0.9% 500 ML IV STA (11:48)
--- NOTE | 2024-11-21 11:53 | Gastrointestinal Consultation ---
Date of Consultation November 21, 2024 Assessment & Plan (1) Acute GI bleeding: patient admitted with complaints of bloody, black stools that have been ongoing for the past 3 days. he had a similar issue with this in 2021 which turned out to be colonic AVMs. However, given reports of black stool in the setting of nsaid use, he would be agreeable to EGD today to further evaluate. Case discussed with Dr. Parker. - set up EGD for today to evaluate for upper GI bleeding. - keep NPO. - continue with protonix 40mg IV BID. - likely will need a colonoscopy as well, but would need prepped for this. will await results of EGD. Supervising Physician Co-Signing Physician Notes 84-year-old gentleman 3 days history of melanotic stools. He also noted red blood on the toilet paper and in the bowl. Patient had a previous history of lower GI bleeding of this followed a colonoscopy and polypectomy. He states he bled about a week later. He has been taking Aleve and occasional ibuprofen. Denies significant heartburn indigestion. BUN/creatinine currently normal. Hemoglobin 9.4. Slight elevation in the ALT and AST at [address] of the contrast of the abdomen pelvis did not show bleeding. There is colonic diverticulosis without diverticulitis. There is mention of mild wall thickening of the cecum though this is felt to be related to underdistention. If EGD negative for source of bleeding .....colonoscopy. History of Present Illness Reason for Consultation: GIB, history of colonic AVMs. Requesting Physician: Vane VILLAGOMEZ History of Present Illness Patient is an 84 year old male who presented to the ED this morning with 3 days of rectal bleeding with dark stool. He tells me that he was having nocturnal symptoms as well. He also had an increase in bowel frequency. He recently started doxycycline for a skin rash and admits to some aleve use for discomfort. he feels nauseated and has some reflux which also started recently. no emesis. no dysphagia. no abdominal pain. He had similar issues back in 2021 and was found to have colonic AVMs at that time. Upon evaluation at the ED, he was found to have a hgb of 9.4. No blood thinner use. Spoke with Drew Matthews PAC in ED who had done rectal exam showing black, bloody stool. He has been NPO except for taking a drink of water with medications at [address] AP showing no bowel obstruction or pneumoperitoneum. colonic diverticulosis without acute diverticulitis. there was mild wall thickening of the cecum with partial distention. Allergies Allergy/AdvReac Type Severity Reaction Status Date / Time No Known Allergies Allergy Unknown Verified 11/21/24 13:08 Home Medications Medication Instructions Recorded Confirmed Type amlodipine 2.5 mg tablet 5 mg PO QAM 12/06/21 11/21/24 History doxycycline monohydrate 100 mg 100 mg PO UD 12/06/21 11/21/24 History tablet glucosamine 750 [id number] 1 tab PO UD 12/06/21 11/21/24 History no1 644 mg-C 30 mg-kelly 1 mg tablet (Osteo Bi-Flex Triple Strength) aspirin 81 mg capsule 81 mg PO QAM 01/26/23 11/21/24 History omega-3 fatty acids 1,000 mg PO UD 07/15/24 11/21/24 History albuterol sulfate 90 mcg/actuation 1 puff inhalation DIRECTED PRN 11/21/24 11/21/24 History aerosol inhaler sob prednisone 20 mg tablet 20 mg PO DIRECTED 11/21/24 11/21/24 History Patient History Medical History Umbilical hernia Left inguinal hernia HLD (hyperlipidemia) Hx of colonic polyps History of transesophageal echocardiography (CIARA) History of GI bleed (04/2022) 04/2022- no recurrence CAD (coronary artery disease) Probable CAD, Hx abnormal stress test 12/2021: patient declined cardiac cath and decision for medical management by cardiology Hypertension GERD (gastroesophageal reflux disease) diet regulated, no medications Mitral valve regurgitation Follows with Dr. Earl; most recent ECHO 07/30/23: moderate bileaflet MVP, mod-severe mid systolic MR, mitral regurgitation jet is posteriorly directed Surgical History Hx of colonoscopy with polypectomy Hx of excision of mass x3 lipoma, neck : most recent: 05/21/23: MAC without issue History of esophagogastroduodenoscopy (EGD) Hx of left inguinal hernia repair History of appendectomy Hx of bilateral cataract extraction Family History Brother Colorectal cancer Sister Colorectal cancer Other No family history of adverse response to anesthesia Social History Smoking Status: Former smoker Tobacco Type: Cigarettes Second Hand Exposure: No; Do You Dip or Chew Tobacco: No; Hx Alcohol Use: Yes Hx Substance Use: No Preferred Language: [place] Islander Communication Ability: Effective Complementary Health Therapists Required: No Beliefs That Will Affect Care: None Current Living Situation: Spouse Feels Safe at Home: Yes Assistive Devices: Denture - Upper and Denture - Lower Review of Systems Review of Systems: All systems reviewed & are unremarkable except as noted in HPI & below Physical Exam Constitutional: WD/WN, vitals as above Respiratory: normal respiratory effort, lungs clear to auscultation Cardiovascular: Rate/Rhythm: regular rate and regular rhythm Gastrointestinal (Abdomen): normal bowel sounds, soft, nontender, no hepatosplenomegaly Psychiatric: Orientation: alert and oriented x 3 Affect: euthymic affect Results & Data Vital Signs (Past 12 Hours) Vital Signs Temp Pulse Pulse Resp BP BP Pulse Ox 11/21/24 09:19 75 18 97 11/21/24 09:19 75 18 146/71 H 97 11/21/24 08:23 97.3 F L 73 18 171/62 H 98 O2 Del Method 11/21/24 09:19 Room Air 11/21/24 09:19 Room Air 11/21/24 08:23 Room Air Coding Level of Care Code 27659 INT INP/OBS CARE 2/55MIN Diagnoses Acute GI bleeding K92.2
--- NOTE | 2024-11-21 13:19 | Anesthesiology Consultation ---
Date of Service November 21, 2024 Assessment & Plan Chart Review Chart Review: Acceptable Risk for Surgery and Patient NOT seen in Pre Admission Testing Consults Requested none ASA ASA3 Proposed Anesthesia Anesthesia Type: MAC Risk / Benefits Reviewed With: PT / POA / Parent / Guardian, Accepts Plan and Informed Consent Obtained History Surgery Operation Date: 11/21/24 16:30 Proposed Procedures p Esophagogastroduodenoscopy Dr. Keith Parker MD Height/Weight Height: 5 ft 9.5 in Weight: 66.1 kg Allergies Allergy/AdvReac Type Severity Reaction Status Date / Time No Known Allergies Allergy Unknown Verified 11/21/24 13:08 Medications Home Medications Medication Instructions Recorded Confirmed Last Taken amlodipine 2.5 mg tablet 5 mg PO QAM 12/06/21 11/21/24 11/21/24 doxycycline monohydrate 100 mg 100 mg PO UD 12/06/21 11/21/24 11/20/24 tablet glucosamine 750 [id number] 1 tab PO UD 12/06/21 11/21/24 11/20/24 no1 644 mg-C 30 mg-kelly 1 mg tablet (Osteo Bi-Flex Triple Strength) aspirin 81 mg capsule 81 mg PO QAM 01/26/23 11/21/24 11/20/24 omega-3 fatty acids 1,000 mg PO UD 07/15/24 11/21/24 11/20/24 albuterol sulfate 90 mcg/actuation 1 puff inhalation DIRECTED PRN 11/21/24 11/21/24 11/19/24 aerosol inhaler sob prednisone 20 mg tablet 20 mg PO DIRECTED 11/21/24 11/21/24 11/20/24 Active Medications Generic Name Dose Route Start Last Admin Trade Name Freq PRN Reason Stop Dose Admin Sodium Chloride 500 mls @ 106 mls/hr 11/21/24 10:34 11/21/24 11:48 Nss IV 11/21/24 15:17 106 mls/hr .[id number] STA Administration Pantoprazole Sodium 40 mg in 10 mls @ 5 mls/min 11/21/24 11:00 11/21/24 11:48 Protonix IV 12/21/24 10:59 5 mls/min BID GISELA Administration NPO Date Last Intake of Fluids: 11/21/24 Time Last Intake of Fluids: 07:00 Date Last Intake of Solids: 11/20/24 Time Last Intake of Solids: 17:00 Past Medical History Medical History Umbilical hernia Left inguinal hernia HLD (hyperlipidemia) Hx of colonic polyps History of transesophageal echocardiography (CIARA) History of GI bleed (04/2022) 04/2022- no recurrence CAD (coronary artery disease) Probable CAD, Hx abnormal stress test 12/2021: patient declined cardiac cath and decision for medical management by cardiology Hypertension GERD (gastroesophageal reflux disease) diet regulated, no medications Mitral valve regurgitation Follows with Dr. Earl; most recent ECHO 07/30/23: moderate bileaflet MVP, mod-severe mid systolic MR, mitral regurgitation jet is posteriorly directed Exercise / Class Metabolic Activity II 4-5 Yardwork/Stairs/Walk up hill Past Family History Family History Brother Colorectal cancer Sister Colorectal cancer Other No family history of adverse response to anesthesia Past Surgical History Surgical History Hx of colonoscopy with polypectomy Hx of excision of mass x3 lipoma, neck : most recent: 05/21/23: MAC without issue History of esophagogastroduodenoscopy (EGD) Hx of left inguinal hernia repair History of appendectomy Hx of bilateral cataract extraction Past Anesthesia History No Hx of Anesthesia Complications and No Family Hx of Anesthesia Complications History of PONV No Hx of PONV and No Hx of Motion Sickness Social History Smoking Status: Former smoker tobacco type: cigarettes Do You Dip or Chew Tobacco: No Hx Alcohol Use: Yes alcohol intake frequency: holidays/special occasions only Hx Substance Use: No substance use type: does not use Review of Systems ROS Unobtainable: All systems reviewed & are unremarkable except as noted in HPI & below Physical Exam Vital Signs Last Vital Signs Temp 36.1 C L 11/21/24 13:10 Pulse 67 11/21/24 13:10 Resp 16 11/21/24 13:10 BP 171/81 H 11/21/24 13:10 Pulse Ox 97 11/21/24 13:10 O2 Del Method Room Air 11/21/24 13:10 ENMT Mouth: no TMJ abnormality Thyromental Distance: > or= 3.5 Finger Breadths Mallampati Class: II Neck normal visual inspection and trachea midline; neck extension not limited Respiratory normal respiratory effort Auscultation: lungs clear to auscultation bilaterally Cardiovascular Rate/Rhythm: regular rate and regular rhythm Heart Sounds: no murmur Musculoskeletal Spine: normal cervical ROM Extremities: full ROM of extremities Neurologic moves all extremities Psychiatric Orientation: alert and oriented x 3 Testing Laboratory Results 11/21/24 09:05 11/21/24 09:05 PT 10.2 Seconds (9.0-12.0) 11/21/24 09:05 INR 0.9 (0.9-1.1) 11/21/24 09:05 APTT 26 Seconds (21-31) 11/21/24 09:05 Blood Type A Positive 11/21/24 09:05 Antibody Screen NEGATIVE 11/21/24 09:05 11/21/24 09:30 POC Glucose (other) 98 Electrocardiogram Date: 11/21/24 Findings: + NSR @ (66) with PACs Echocardiogram Date: 07/30/23 EF: 55-59 LV Function: normal Valvular Disease: + MR (moderate MVP)
--- NOTE | 2024-11-21 14:17 | GI REPORT ---
[facility] Patient: LIDIA DAVID : 1940 Sex at : Male Age: 84 Years Procedure: Upper GI endoscopy Date: 11/21/2024 Attending Physician: Cody Parker MD Referring MD: Referred Self Indications: - Melena - Suspected upper gastrointestinal bleeding Medications: - Monitored Anesthesia Care Complications: - No immediate complications. Estimated Blood Loss: - Estimated blood loss was minimal. Procedure: - The egd scope was introduced through the mouth and advanced to the second part of the duodenum. - The upper GI endoscopy was accomplished without difficulty. - The patient tolerated the procedure well. Findings: - A small hiatal hernia was present. - The Z-line was irregular. 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 - Many non-bleeding superficial gastric ulcers with no stigmata of bleeding were found in the gastric antrum. The largest lesion was 3 mm in largest dimension. Biopsies were taken with a cold forceps for histology. - One non-bleeding cratered gastric ulcer with pigmented material was found at the pylorus. The lesion was 9 mm in largest dimension. - Few non-bleeding superficial duodenal ulcers with no stigmata of bleeding were found in the duodenal bulb. The largest lesion was 2 mm in largest dimension. Impression: - Small hiatal hernia. - Z-line irregular. - Biopsy x 2 for possible short segment Blanchard's - Nonobstructing Schatzki's ring. - Non-bleeding gastric ulcers with no stigmata of bleeding. Biopsied. - Non-bleeding gastric ulcer with pigmented material. - Non-bleeding duodenal ulcers with no stigmata of bleeding. Recommendation: - Await pathology results. - Treat H. pylori - Protonix 40mg po daily. - Avoid NSAIDs. Acetaminophen up to 4 tablets maximum per day acceptable. Procedure Code(s): - 38835, Esophagogastroduodenoscopy, flexible, transoral; with biopsy, single or multiple Diagnosis Code(s): - K92.1, Melena (includes Hematochezia) - K44.9, Diaphragmatic hernia without obstruction or gangrene - K22.89, Other specified disease of esophagus - K25.9, Gastric ulcer, unspecified as acute or chronic, without hemorrhage or perforation - K26.9, Duodenal ulcer, unspecified as acute or chronic, without hemorrhage or perforation CPT(R) - 2023 copyright [employer]. All Rights Reserved. The CPT codes, CCI edits and ICD codes generated are intended as suggestions and were generated based on input data. These codes are preliminary and upon medical record coder review may be revised to meet current compliance and payer requirements. The provider is responsible for the final determination of appropriate codes, and modifiers. Cody Parker MD This document has been electronically signed. Note Initiated:11/21/2024 Note Completed:11/21/2024 2:17 PM \\[email or web address]\[email or web address]\Provation\Results\[email or web address]\[id number]
--- NOTE | 2024-11-21 14:33 | Anesthesiology Progress Note ---
Date of Service November 21, 2024 Anesthesia Post Procedure Vital Signs Vital Signs: Temp Pulse Pulse Pulse Resp BP BP 11/21/24 14:29 57 L 16 106/58 L 11/21/24 14:22 61 16 98/50 L 11/21/24 13:10 36.1 C L 67 16 171/81 H 11/21/24 11:00 61 19 153/76 H 11/21/24 09:19 75 18 11/21/24 09:19 75 18 146/71 H 11/21/24 08:23 36.3 C L 73 18 171/62 H Pulse Ox O2 Del Method 11/21/24 14:29 95 Room Air 11/21/24 14:22 95 Room Air 11/21/24 13:10 97 Room Air 11/21/24 11:00 95 Room Air 11/21/24 09:19 97 Room Air 11/21/24 09:19 97 Room Air 11/21/24 08:23 98 Room Air Transfer of Care Handoff Completed per policy Notes Mental Status: alert / awake / arousable Patient Amnestic to Procedure: Yes Nausea / Vomiting: adequately controlled Pain: adequately controlled Airway Patency, RR, SpO2: stable & adequate BP & HR: stable & adequate Hydration State: stable & adequate Anesthetic Complications: no major complications apparent and Pt Satisfied with anesthetic care
[2024-11-21] MEDS ORDERED: ACETAMINOPHEN 325 MG TAB PO PRN (15:25)
[2024-11-21] MEDS ORDERED: ONDANSETRON INJ 2 MG/ML 2 ML VIAL IV PRN (15:25)
[2024-11-21] MEDS ORDERED: guaiFENesin/DEXTROM SYRUP 200MG/20MG 10ML UDC PO PRN (15:25)
[2024-11-21] MEDS: PROPOFOL IV EMULSION 10 MG/ML 20 ML VIAL IV ONE (15:52)
[2024-11-21] MEDS: LIDOCAINE 2% 2 ML VIAL/AMP(20MG/ML) INFIL ONE (15:52)
[2024-11-21] MEDS: SODIUM CHLORIDE 0.9% 1,000 ML IV SCH (16:09)
[2024-11-21 18:03] LABS: Hematocrit (blood only) 27.1 % (42.0-52.0); Hemoglobin 9.2 g/dl (14.0-18.0)
[2024-11-21 22:09] LABS: Hematocrit (blood only) 26.1 % (42.0-52.0); Hemoglobin 8.8 g/dl (14.0-18.0)
--- NOTE | 2024-11-21 22:34 | Electrocardiogram Report ---
Test Reason : Blood Pressure : */* mmHG Vent. Rate : 66 BPM Atrial Rate : 66 BPM P-R Int : 182 ms QRS Dur : 94 ms QT Int : 384 ms P-R-T Axes : 53 28 34 degrees QTcB Int : 402 ms Sinus rhythm with Premature atrial complexes Otherwise normal ECG When compared with ECG of 23-Apr-2022 09:55, Premature ventricular complexes are no longer Present Confirmed by Simba Plummer ([id number]) on 11/21/2024 10:33:39 PM Referred By: REFERRED SELF Confirmed By: Simba Plummer
[2024-11-21 22:45] VITALS: TEMP 97.9
--- OUTSIDE RECORDS SUMMARY | 2024-11-21 23:12 | External Medical Summary | Summary of Care ---
Author Name Unknown Organization [facility] Address [address] [place] [address] Phone [phone] Care Team Providers Care Air And Water Tester Name Role Phone Priya Keith MD Primary Care Provider [phone] Encounter Details Date Type Department Care Team (Late st Contact Info) Description 11/21/2024 Orders Only PATIENT PORTAL DO NOT DELETE THIS DEPT USED BY JILL WEIR [id number] Allergies No known active allergiesdocumented as of this encounter (statuses as of 11/21/2024) Medications Misc Natural Products (OSTEO BI-FLEX ADV [...] as of this encounter (statuses as of 11/21/2024) Active Problems Problem Noted Date Diagnosed Date Right inguinal hernia 06/20/2024 Umbilical hernia without obstruction and without gangrene 06/20/2024 Benign paroxysmal vertigo of left ear 07/17/2023 History of lower GI bleeding 07/17/2023 Vascular ectasia of colon 07/17/2023 History of anemia 07/17/2023 Coronary artery disease invo lving prairie band coronary artery of prairie band heart without angina pectoris 01/11/2023 Dyslipidemia, goal [...] as of this encounter (statuses as of 11/21/2024) Resolved Problems Problem Noted Date Diagnosed Date [...] as of this encounter (statuses as of 11/21/2024) Immunizations Name Administration Dates Next Due COVID-19 mRNA, LNP-s, No Pre serve, 2-Dose Series ([employer]eer) 01/07/2021,12/16/2020 Pneumococcal Conjugate Vacc, 13 Valent (Prevnar) [...] 05/08/2025 11:30 AM EDT Office Visit Cardiology, [facility] [address] [place] [id number] [address], [address] [place] [id number] Scheduled Procedures Name Priority Associated Diagnoses Date/Ti [...] D LEVEL ONCE IN A LIFETIME-USE SMARTSET# [id number] Completed 09/05/2024, 01/28/2021, 06/20/2017, Additional history exists [...] this encounter Medical Devices Implanted Type Area Pick Pack Worker Device Identifier Shelf Expiration Date Model / Serial / Lot Envista Toric [id number] Se +22.0 Cyl 2.00 Implanted:Qty: 1 on 11/11/2020 by Pk Chapa MD at OR [facility] [address] Left: Eye 04/23/2021 [id number] / [id number] / [id number] Toric 200 21.5 Implanted:Qty: 1 on 11/23/2020 by Pk Chapa MD at OR [facility] [address] Right: Eye 06/23/2021 [id number] / [id number] / documented as of this encounter Care Teams Air And Water Tester Relationship Specialty Start Date End Date Priya Keith MD [address] [place] [address] PCP - General Internal Medicine 01/24/24 documented as of this encounter
[2024-11-22 03:05] VITALS: RESP 18; O2SAT 96
[2024-11-22 04:16] LABS: Basophils # (auto) 0.02 K/uL (0.00-0.20); Basophils % (auto) 0.6 %; Eosinophils # (auto) 0.02 K/uL (0.00-0.50); Eosinophils % (auto) 0.6 %; Hematocrit (blood only) 27.6 % (42.0-52.0); Hemoglobin 9.1 g/dl (14.0-18.0); Immature Granulocytes # (auto) 0.01 K/uL (0.01-0.20); Immature Granulocytes % (auto) 0.3 %; Lymphocytes # (auto) 1.48 K/uL (1.20-3.40); Lymphocytes % (auto) 42.7 %; Mean Corpuscular Volume 91.1 fL (80.0-100.0); Mean Platelet Volume 11.8 fL (9.4-12.4); Monocytes # (auto) 0.43 K/uL (0.11-0.59); Monocytes % (auto) 12.4 %; Neutrophils # (auto) 1.51 K/uL (1.40-6.50); Neutrophils % (auto) 43.4 %; Platelet Count 148 K/uL (130-400); RDW Coefficient of Variation 14.4 % (11.5-14.5); RDW Standard Deviation 47.1 fL (36.4-46.3); Red Blood Count 3.03 M/uL (4.70-6.10); White Blood Count 3.47 K/ul (4.8-10.8)
[2024-11-22 04:17] LABS: Albumin Globulin Ratio 1.3 (0.9-2); Albumin Level 3.4 gm/dl (3.4-5.0); BUN Creatinine Ratio 13.6 (10-20); Bilirubin,Total 0.3 mg/dl (0.2-1.0); Calcium 7.7 mg/dl (8.6-10.3); Creatinine Clr Calc Pharmacy 48.4 ml/min; Globulin 2.7 gm/dl (2.5-4.0); Magnesium 1.9 mg/dl (1.7-2.4); Potassium 4.1 mmol/L (3.5-5.1); Total Protein 6.1 gm/dl (6.0-8.3)
[2024-11-22 04:36] LABS: Ferritin 19.6 ng/ml (8-388)
[2024-11-22 06:39] LABS: Folate (Folic Acid),Ser orPlas > 22.30 ng/ml (>5.38)
[2024-11-22 06:40] LABS: Vitamin B12 706 pg/ml (180-914)
[2024-11-22 07:47] VITALS: BP 170/81
[2024-11-22] MEDS: amLODIPine BESYLATE 5 MG TAB PO SCH (08:13)
[2024-11-22 10:03] LABS: Hematocrit (blood only) 28.3 % (42.0-52.0); Hemoglobin 9.4 g/dl (14.0-18.0)
[2024-11-22 11:46] VITALS: PULSE 61
--- NOTE | 2024-11-22 12:14 | Discharge Summary ---
Discharge Summary Date of Service November 22, 2024 Principal Dx & Hospital Course #1 = Principal Diagnosis (1) Acute GI bleeding: (2) Acute blood loss anemia: Plan This is an 84-year-old male who has significant past medical history of nonobstructive CAD, HTN, HLD, mitral valve regurgitation, vascular ectasia of the colon, history of GI bleed, GERD, Mnire's disease and history of tobacco abuse who presents to ED secondary to rectal bleeding. #Acute GIB #Acute blood loss anemia #Hx of colonic AVMS/Diverticulosis/Hemorrhoids/recent NSAID use -GI consulted, appreciate recs -EGD performed, possible Barretts with gastric ulcers -discussed with GI, f/u outpatient, protonix 40 daily -f/u biopsies outpatient #Transaminitis -f/u outpatient #CAD #HTN #HLD #Mitral valve regurg -follows [facility] cards -no hx of coronary intervention -continue amlodipine as BP allows, hold ASA Notes For Next Care Provider This is an 84-year-old male who has significant past medical history of nonobstructive CAD, HTN, HLD, mitral valve regurgitation, vascular ectasia of the colon, history of GI bleed, GERD, Mnire's disease and history of tobacco abuse who presents to ED secondary to rectal bleeding. GI consulted, recommended EGD that found possible Barrets esophagus and gastric ulcers which are likely so urce of bleed. Hgb stabilized. On 11/22/2024 patient medically stable for discharge home. Medication Changes From Visit -protonix daily Admission HPI Per Admitting Provider This is an 84-year-old male who has significant past medical history of nonobstructive CAD, HTN, HLD, mitral valve regurgitation, vascular ectasia of the colon, history of GI bleed, GERD, Mnire's disease and history of tobacco abuse who presents to ED secondary to rectal bleeding. His is at bedside who also helps elicit history. He states for the last week or more he had noticed black tarry stool. Since Sunday he has also noted bright red blood covering the stool and turning the toilet water red. He also notes bright red blood with wiping. He states this is occurring with every bowel movement. He reports being on aspirin daily, but did not take it today. He also reports taking 2 doses of anti-inflammatory twice daily over the last few days due to having a cough. He states when he would lay down at night he would feel something coming up his chest and then resulted in significant coughing. He was recently seen by PCP due to upper respiratory symptoms who started him on prednisone. He only took 2 doses of this. He reports having COVID several weeks ago. He does have generalized abdominal pain. He states he has had this pain for the last few years. He denies it being changed at this time. He denies requiring blood transfusion in the past. He denies any fever, chills, sweats, lightheadedness, dizziness, chest pain, shortness of breath, vomiting, hematemesis, dysuria, changes bowel or urinary habits. He has been nauseated. He also reports a chronic right inguinal hernia that has been, "causing him trouble," but is not currently painful at the time. Outpatient lab work was reviewed in which he had a hemoglobin and August 2024 which was 12.7. He also had a hemoglobin on 11/19 that was 10.4. In ED patient remained hemodynamically stable. His hemoglobin was noted to be 9.4. His CMP was generally unremarkable except for mildly elevated AST and ALT at 60 and 71. He was Hemoccult positive per ED provider. CT abdomen pelvis was performed which did not show any acute abnormality in regards to bleeding. Discharge Exam Gen: A&O 3 NAD HEENT: NCAT, EOMI, not icteric. External ears normal. No rhinorrhea. Moist mucous membranes. Neck: Supple, full range of motion, no observable masses, No meningeal sign. Lungs: No Respiratory distress. CV: RRR, no edema. Abdomen: Soft, nondistended, No rebound tenderness. MSK: No joint swelling, no redness. Skin: No rashes, petechiae, lesions. Normal color per patient. Neuro: Normal Gait, Grossly intact. Psych: Appropriate for situation. Updated Medication List Medication Instructions Recorded Confirmed Type amlodipine 2.5 mg tablet 5 mg PO QAM 12/06/21 11/21/24 History glucosamine 750 un-[id number]-[id number] 1 tab PO UD 12/06/21 11/21/24 History no1 644 mg-C 30 mg-kelly 1 mg tablet (Osteo Bi-Flex Triple Strength) aspirin 81 mg capsule 81 mg PO QAM 01/26/23 11/21/24 History omega-3 fatty acids 1,000 mg PO UD 07/15/24 11/21/24 History albuterol sulfate 90 mcg/actuation 1 puff inhalation DIRECTED PRN 11/21/24 11/21/24 History aerosol inhaler sob prednisone 20 mg tablet 20 mg PO DIRECTED 11/21/24 11/21/24 History pantoprazole 40 mg tablet,delayed 40 mg PO DAILY 8 weeks #56 tabs 11/22/24 Rx release (Protonix) Hospital Stay Data Consultations 11/21/24 10:49 Consult Gastroenterology Routine ED Decision to Admit Stat Procedures Performed Operation Date: 11/21/24 16:30 Actual Procedures p EGD Biopsy Cytology - Cody Parker MD Diagnostic Imagining Performed 11/21/24 08:56 CT abd pelvis IV con only Stat Pending Results Patient Have Any Pending Studies at Discharge: No Discharge Instructions Given to Patient (Per Discharging Provider) 1. Please follow up with GI and PCP. 2. Please take protonix daily. 3. Follow up with GI for biopsy results and further workup. Total Time Total Time Spent Total Time Spent (In Minutes): I spent a total of 35 minutes in direct patient care, including [id number] time with the patient and/or family, reviewing medical records, ordering and reviewing diagnostic tests, and coordinating care with other healthcare provi ders. This time includes: history taking, physical examination, medical decision making, counseling, ECG interpretation, imaging interpretation, lab interpretation, orders, and education, excluding time spent in the performance of separately billed services.
== END 2024-11-22 12:24 | disposition home or self-care (01) | DRG 327 ==
LOC: ED 08:19 → EDINP 10:54 → SUATTDRO 10:54 → EDINP 14:52 → 2N 16:15